=== PATIENT | female | born 1940 | race Caucasian/White ===

== ENCOUNTER 2017-10-25 09:14 | Inpatient (IN) | payer MEDICARE ==
[2017-10-25] MEDS: ONDANSETRON 4MG/2ML VIAL (J2405) IV ×2 (09:45→21:58)
[2017-10-25] MEDS: NS 500 ML IV (09:45)
[2017-10-25 10:10] LABS: BASO % 0.2 % (0.0-1.0); EOS % 0.4 % (0.0-3.0); HEMATOCRIT 30.3 % (36.0-47.0); HEMOGLOBIN 10.3 g/dl (12.0-16.0); IMMATURE GRANULOCYTE % 1.1 % (0-3.0); LYMPH # 0.6 10^3/uL (1.5-4.5); MEAN CORPUSCULAR HEMOGLOBIN 28.6 pg (27.0-33.0); MEAN CORPUSCULAR VOLUME 84.2 fl (80.0-96.0); MONO # 0.4 10^3/uL (0.0-0.8); MONO % 4.3 % (0.0-5.0); PLATELET COUNT, AUTOMATED 250 10^3/uL (150-450); RED CELL DISTRIBUTION WIDTH 14.2 % (11.5-14.5); WHITE BLOOD COUNT 9.1 10^3/uL (4.0-10.0)
[2017-10-25] MEDS: MORPHINE 2 MG/ML 1ML SYRINGE (J2270) IV ×2 (10:14→15:41)
[2017-10-25 10:26] LABS: INR 1.18; PROTHROMBIN TIME 15.2 SECONDS (12.4-14.5)
[2017-10-25 10:27] LABS: PARTIAL THROMBOPLASTIN TIME 33.8 SECONDS (26.8-37.9)
[2017-10-25 10:38] LABS: LACTIC ACID SEPSIS PROTOCOL 1.8 MMOL/L (0.4-2.0)
[2017-10-25 10:40] LABS: ALBUMIN 1.7 GM/DL (3.2-5.2); ALBUMIN/GLOBULIN RATIO 0.37 (1.00-1.93); ALKALINE PHOSPHATASE 115 U/L (45-117); ALT/SGPT 14 U/L (12-78); AMYLASE 36 U/L (25-115); ANION GAP 8 MEQ/L (8-16); AST/SGOT 13 U/L (7-37); BF MONONUCLEAR CELL % 13.4 % (0-0); BF POLYMORPHONUCLEAR CELL % 86.6 % (0-0); BILIRUBIN,DIRECT < 0.1 MG/DL (0.0-0.2); BILIRUBIN,TOTAL 0.3 MG/DL (0.2-1.0); BLOOD UREA NITROGEN 29 MG/DL (7-18); CALCIUM LEVEL 7.4 MG/DL (8.8-10.2); CARBON DIOXIDE LEVEL 31 MEQ/L (21-32); CHLORIDE LEVEL 85 MEQ/L (98-107); CK-MB VALUE MASS 2.3 NG/ML (<3.6); CPK CREATINE PHOSPHOKINASE 32 U/L (26-192); CREATININE FOR GFR 3.79 MG/DL (0.55-1.30); GLOMERULAR FILTRATION RATE 12.3 (>39); GLUCOSE, FASTING 240 MG/DL (70-100); LIPASE 311 U/L (73-393); MB/CK RELATIVE INDEX 7.18 (< OR =4); POTASSIUM SERUM 2.4 MEQ/L (3.5-5.1); RBC BODY FLUID < 2 10^3/uL (<2); SODIUM LEVEL 124 MEQ/L (136-145); TOTAL PROTEIN 6.3 GM/DL (6.4-8.2); TROPONIN I < 0.02 NG/ML (< 0.10); WBC BODY FLUID 884 /uL (0-10)
[2017-10-25 10:42] LABS: APPEARANCE, BODY FLUID HAZY (CLEAR); BF DIFF IF INDICATED? YES (NO); PERITONEAL FL COLOR COLORLESS (COLORLESS); SOURCE, BODY FLUID PERITONEAL
[2017-10-25 11:19] LABS: MAGNESIUM LEVEL 1.4 MG/DL (1.8-2.4)
[2017-10-25] MEDS ORDERED: MEROPENEM INJ 1 GM in APPROPRIATE DILUENT 1 EA IV (11:30)
[2017-10-25] MEDS: POTASSIUM CHLORIDE 10 MEQ SR TABLET PO (11:31)
[2017-10-25 13:22] LABS: CC BF DIFF EXAM UNSPUN
[2017-10-25] MEDS: KCL 10MEQ/100ML SWI (KRUN) 10 MEQ in APPROPRIATE DILUENT 1 EA IV ×4 (15:00→16:30)
[2017-10-25] MEDS: GENTAMICIN SULF INJ 80MG/2ML VIAL (J1580) IP (15:02)
[2017-10-25] MEDS: VANCOMYCIN 1000 MG/20 ML VIAL (J3370) IP (15:03)
[2017-10-25] MEDS: MAG SULF 1GM/100ML (MAG RUN) 1 GM in APPROPRIATE DILUENT 1 EA IV (15:03)
[2017-10-25] MEDS ORDERED: GLUCAGON FOR INJ 1 MG VIAL (J1610) SC (16:45)
[2017-10-25] MEDS ORDERED: GLUCOSE 4 GM CHEW TABLET PO (16:45)
[2017-10-25] MEDS ORDERED: DEXTROSE 50% 50 ML SYRINGE IV (16:45)
[2017-10-25] MEDS: HumaLOG INSULIN (NovoLOG) PER UNIT SC ×2 (17:30→21:00)
[2017-10-25 17:33] LABS: BEDSIDE GLUCOSE 242 MG/DL (83-110)
[2017-10-25] MEDS: (RENVELA) SEVELAMER **CARBONate** 800 MG TAB PO (17:44)
[2017-10-25 20:30] LABS: POTASSIUM SERUM 3.4 MEQ/L (3.5-5.1)
[2017-10-25 21:22] LABS: BEDSIDE GLUCOSE 150 MG/DL (83-110)
[2017-10-25] MEDS: CARVedilol 3.125 MG TAB PO (21:58)
[2017-10-25] MEDS: oxyCODONE 5MG TAB PO (21:59)
[2017-10-26 06:29] LABS: HEMATOCRIT 28.2 % (36.0-47.0); HEMOGLOBIN 9.4 g/dl (12.0-16.0); MEAN CORPUSCULAR HEMOGLOBIN 28.3 pg (27.0-33.0); MEAN CORPUSCULAR HGB CONC 33.3 g/dl (32.0-36.5); MEAN CORPUSCULAR VOLUME 84.9 fl (80.0-96.0); PLATELET COUNT, AUTOMATED 203 10^3/uL (150-450); RED BLOOD COUNT 3.32 10^6/uL (4.00-5.40); RED CELL DISTRIBUTION WIDTH 14.1 % (11.5-14.5); WHITE BLOOD COUNT 7.6 10^3/uL (4.0-10.0)
[2017-10-26] MEDS: oxyCODONE 5MG TAB PO ×2 (06:41→17:45)
[2017-10-26 06:51] LABS: ALBUMIN 1.4 GM/DL (3.2-5.2); ALBUMIN/GLOBULIN RATIO 0.34 (1.00-1.93); ALKALINE PHOSPHATASE 107 U/L (45-117); ALT/SGPT 12 U/L (12-78); ANION GAP 8 MEQ/L (8-16); AST/SGOT 9 U/L (7-37); BILIRUBIN,TOTAL 0.3 MG/DL (0.2-1.0); BLOOD UREA NITROGEN 27 MG/DL (7-18); CALCIUM LEVEL 7.1 MG/DL (8.8-10.2); CARBON DIOXIDE LEVEL 30 MEQ/L (21-32); CHLORIDE LEVEL 89 MEQ/L (98-107); GLOMERULAR FILTRATION RATE 13.1 (>39); GLUCOSE, FASTING 170 MG/DL (70-100); MAGNESIUM LEVEL 1.5 MG/DL (1.8-2.4); POTASSIUM SERUM 3.2 MEQ/L (3.5-5.1); SODIUM LEVEL 127 MEQ/L (136-145); TOTAL PROTEIN 5.5 GM/DL (6.4-8.2)
[2017-10-26] MEDS: HumaLOG INSULIN (NovoLOG) PER UNIT SC ×4 (07:49→21:00)
[2017-10-26] MEDS: POTASSIUM CHLORIDE 10 MEQ SR TABLET PO (08:01)
[2017-10-26] MEDS: MAG SULF 1GM/100ML (MAG RUN) 1 GM in APPROPRIATE DILUENT 1 EA IV ×2 (08:01→10:07)
[2017-10-26] MEDS: (RENVELA) SEVELAMER **CARBONate** 800 MG TAB PO ×2 (08:02→17:34)
[2017-10-26] MEDS: CARVedilol 3.125 MG TAB PO ×2 (08:02→21:45)
[2017-10-26] MEDS: FERROUS SULFATE 325MG TAB PO (08:02)
[2017-10-26] MEDS: ASPIRIN 325 MG TAB PO (08:02)
[2017-10-26] MEDS: CALCITRIOL 0.25 MCG CAP (S0169) PO (08:02)
[2017-10-26] MEDS: BACITRACIN OINT 30GM TOP (09:00)
[2017-10-26] MEDS: aMILoride 5 MG TAB PO (10:10)
[2017-10-26 11:38] LABS: BF MONONUCLEAR CELL % 10.4 % (0-0); BF POLYMORPHONUCLEAR CELL % 89.6 % (0-0); PERITONEAL FL COLOR COLORLESS (COLORLESS); RBC BODY FLUID < 2 10^3/uL (<2); SOURCE, BODY FLUID PERITONEAL; WBC BODY FLUID 879 /uL (0-10)
[2017-10-26 11:39] LABS: APPEARANCE, BODY FLUID HAZY (CLEAR); BF DIFF IF INDICATED? YES (NO)
[2017-10-26 11:56] LABS: BEDSIDE GLUCOSE 229 MG/DL (83-110)
[2017-10-26] MEDS: ONDANSETRON 4MG/2ML VIAL (J2405) IV (15:24)
[2017-10-26] MEDS: TORSEMIDE 20 MG TAB PO (16:09)
[2017-10-26] MEDS: POTASSIUM CHLORIDE 10% LIQ 20 MEQ/15 ML UDC PO (16:09)
[2017-10-26 16:33] LABS: BEDSIDE GLUCOSE 200 MG/DL (83-110)
[2017-10-26 20:40] LABS: ANION GAP 6 MEQ/L (8-16); BLOOD UREA NITROGEN 27 MG/DL (7-18); CARBON DIOXIDE LEVEL 33 MEQ/L (21-32); CHLORIDE LEVEL 89 MEQ/L (98-107); CREATININE FOR GFR 3.39 MG/DL (0.55-1.30); GLUCOSE, FASTING 214 MG/DL (70-100); SODIUM LEVEL 128 MEQ/L (136-145)
[2017-10-26 21:01] LABS: BEDSIDE GLUCOSE 216 MG/DL (83-110)
[2017-10-26] MEDS: GENTAMICIN SULF INJ 80MG/2ML VIAL (J1580) IP (22:05)
[2017-10-27] MEDS: CALCIUM CARBONATE 500 MG CHEW U/D PO (00:12)
[2017-10-27] MEDS: ONDANSETRON 4MG/2ML VIAL (J2405) IV ×2 (05:16→15:49)
[2017-10-27 05:23] LABS: HEMATOCRIT 30.3 % (36.0-47.0); HEMOGLOBIN 9.9 g/dl (12.0-16.0); MEAN CORPUSCULAR HEMOGLOBIN 28.3 pg (27.0-33.0); MEAN CORPUSCULAR HGB CONC 32.7 g/dl (32.0-36.5); MEAN CORPUSCULAR VOLUME 86.6 fl (80.0-96.0); PLATELET COUNT, AUTOMATED 237 10^3/uL (150-450); RED CELL DISTRIBUTION WIDTH 14.3 % (11.5-14.5); WHITE BLOOD COUNT 5.8 10^3/uL (4.0-10.0)
[2017-10-27 05:52] LABS: ALBUMIN 1.5 GM/DL (3.2-5.2); ALBUMIN/GLOBULIN RATIO 0.37 (1.00-1.93); ALKALINE PHOSPHATASE 110 U/L (45-117); ALT/SGPT 10 U/L (12-78); ANION GAP 8 MEQ/L (8-16); AST/SGOT 9 U/L (7-37); BILIRUBIN,TOTAL 0.2 MG/DL (0.2-1.0); BLOOD UREA NITROGEN 30 MG/DL (7-18); CALCIUM LEVEL 7.7 MG/DL (8.8-10.2); CARBON DIOXIDE LEVEL 32 MEQ/L (21-32); CHLORIDE LEVEL 89 MEQ/L (98-107); CREATININE FOR GFR 3.59 MG/DL (0.55-1.30); GLOMERULAR FILTRATION RATE 13.1 (>39); GLUCOSE, FASTING 162 MG/DL (70-100); MAGNESIUM LEVEL 1.8 MG/DL (1.8-2.4); POTASSIUM SERUM 3.5 MEQ/L (3.5-5.1); SODIUM LEVEL 129 MEQ/L (136-145); TOTAL PROTEIN 5.6 GM/DL (6.4-8.2)
[2017-10-27 06:51] LABS: RBC BODY FLUID < 2 10^3/uL (<2); SOURCE, BODY FLUID PERITONEAL DIALYSATE; WBC BODY FLUID 873 /uL (0-10)
[2017-10-27 06:52] LABS: APPEARANCE, BODY FLUID HAZY (CLEAR); PERITONEAL DIALYSATE FL COLOR COLORLESS (COLORLESS)
[2017-10-27 06:53] LABS: BF DIFF IF INDICATED? YES (NO)
[2017-10-27] MEDS: (RENVELA) SEVELAMER **CARBONate** 800 MG TAB PO ×4 (08:00→17:09)
[2017-10-27] MEDS: ASPIRIN 325 MG TAB PO (08:16)
[2017-10-27] MEDS: CARVedilol 3.125 MG TAB PO ×2 (08:17→21:16)
[2017-10-27] MEDS: aMILoride 5 MG TAB PO (08:17)
[2017-10-27] MEDS: POTASSIUM CHLORIDE 10 MEQ SR TABLET PO (08:17)
[2017-10-27] MEDS: CALCITRIOL 0.25 MCG CAP (S0169) PO (08:17)
[2017-10-27] MEDS: HumaLOG INSULIN (NovoLOG) PER UNIT SC ×4 (08:18→21:00)
[2017-10-27] MEDS: TORSEMIDE 20 MG TAB PO ×2 (08:18→17:03)
[2017-10-27] MEDS: FERROUS SULFATE 325MG TAB PO (08:18)
[2017-10-27] MEDS: oxyCODONE 5MG TAB PO ×2 (08:19→15:50)
[2017-10-27] MEDS: BACITRACIN OINT 30GM TOP (08:21)
[2017-10-27 11:18] LABS: GENTAMICIN LEVEL RANDOM 2.6 MCG/ML; VANCOMYCIN RANDOM 15.2 UG/ML
[2017-10-27 12:22] LABS: BEDSIDE GLUCOSE 195 MG/DL (83-110)
[2017-10-27] MEDS: CEFEPIME HCL 2 GM in D5W MINI-BAG PLUS 50 ML IV (13:13)
[2017-10-27] MEDS: FLUCONAZOLE 100 MG TAB PO (13:13)
[2017-10-27] MEDS: HEPARIN SOD (PORCINE) 5000 UNITS/ML VIAL PD (14:41)
[2017-10-27 17:12] LABS: BEDSIDE GLUCOSE 198 MG/DL (83-110)
[2017-10-27] MEDS: PROMETHAZINE INJ 25 MG/ML VIAL (J2550) IV (18:17)
[2017-10-27 20:56] LABS: BEDSIDE GLUCOSE 219 MG/DL (83-110)
[2017-10-27] MEDS: GENTAMICIN SULF INJ 80MG/2ML VIAL (J1580) IP (22:12)
[2017-10-28 05:37] LABS: HEMOGLOBIN 10.1 g/dl (12.0-16.0); MEAN CORPUSCULAR HEMOGLOBIN 28.3 pg (27.0-33.0); MEAN CORPUSCULAR HGB CONC 32.6 g/dl (32.0-36.5); MEAN CORPUSCULAR VOLUME 86.8 fl (80.0-96.0); PLATELET COUNT, AUTOMATED 257 10^3/uL (150-450); RED BLOOD COUNT 3.57 10^6/uL (4.00-5.40); RED CELL DISTRIBUTION WIDTH 14.1 % (11.5-14.5); WHITE BLOOD COUNT 6.1 10^3/uL (4.0-10.0)
[2017-10-28 06:14] LABS: ALBUMIN 1.5 GM/DL (3.2-5.2); ALBUMIN/GLOBULIN RATIO 0.37 (1.00-1.93); ALKALINE PHOSPHATASE 103 U/L (45-117); ALT/SGPT 11 U/L (12-78); ANION GAP 9 MEQ/L (8-16); AST/SGOT 9 U/L (7-37); BILIRUBIN,TOTAL 0.3 MG/DL (0.2-1.0); BLOOD UREA NITROGEN 33 MG/DL (7-18); CALCIUM LEVEL 7.8 MG/DL (8.8-10.2); CARBON DIOXIDE LEVEL 30 MEQ/L (21-32); CHLORIDE LEVEL 90 MEQ/L (98-107); GLOMERULAR FILTRATION RATE 12.7 (>39); GLUCOSE, FASTING 154 MG/DL (70-100); MAGNESIUM LEVEL 1.8 MG/DL (1.8-2.4); POTASSIUM SERUM 3.5 MEQ/L (3.5-5.1); SODIUM LEVEL 129 MEQ/L (136-145); TOTAL PROTEIN 5.6 GM/DL (6.4-8.2)
[2017-10-28 07:47] LABS: RBC BODY FLUID < 2 10^3/uL (<2); SOURCE, BODY FLUID PERITONEAL DIALYSATE; WBC BODY FLUID 546 /uL (0-10)
[2017-10-28 07:48] LABS: APPEARANCE, BODY FLUID CLEAR (CLEAR); BF DIFF IF INDICATED? YES (NO); PERITONEAL DIALYSATE FL COLOR COLORLESS (COLORLESS)
[2017-10-28] MEDS: (RENVELA) SEVELAMER **CARBONate** 800 MG TAB PO ×2 (08:00→18:00)
[2017-10-28] MEDS: POTASSIUM CHLORIDE 10 MEQ SR TABLET PO (09:00)
[2017-10-28] MEDS: CALCITRIOL 0.25 MCG CAP (S0169) PO (09:05)
[2017-10-28] MEDS: HumaLOG INSULIN (NovoLOG) PER UNIT SC ×4 (09:05→21:00)
[2017-10-28] MEDS: FERROUS SULFATE 325MG TAB PO (09:06)
[2017-10-28] MEDS: ASPIRIN 325 MG TAB PO (09:07)
[2017-10-28] MEDS: TORSEMIDE 20 MG TAB PO ×2 (09:07→18:05)
[2017-10-28] MEDS: FLUCONAZOLE 100 MG TAB PO (09:08)
[2017-10-28] MEDS: CARVedilol 3.125 MG TAB PO ×2 (09:08→20:41)
[2017-10-28] MEDS: BACITRACIN OINT 30GM TOP (09:10)
[2017-10-28] MEDS: aMILoride 5 MG TAB PO (09:10)
[2017-10-28 09:40] LABS: VANCOMYCIN RANDOM 12.5 UG/ML
[2017-10-28 12:18] LABS: BEDSIDE GLUCOSE 160 MG/DL (83-110)
[2017-10-28] MEDS: VANCOMYCIN 1000 MG/20 ML VIAL (J3370) IP (14:25)
[2017-10-28 17:24] LABS: BEDSIDE GLUCOSE 171 MG/DL (83-110)
[2017-10-28 21:25] LABS: BEDSIDE GLUCOSE 94 MG/DL (83-110)
[2017-10-29 07:13] LABS: BF MONONUCLEAR CELL % 20.2 % (0-0); BF POLYMORPHONUCLEAR CELL % 79.8 % (0-0); RBC BODY FLUID < 2 10^3/uL (<2); WBC BODY FLUID 376 /uL (0-10)
[2017-10-29 07:14] LABS: APPEARANCE, BODY FLUID HAZY (CLEAR); BF DIFF IF INDICATED? YES (NO); PERITONEAL DIALYSATE FL COLOR COLORLESS (COLORLESS); SOURCE, BODY FLUID PERITONEAL DIALYSATE
[2017-10-29 07:28] LABS: HEMATOCRIT 31.9 % (36.0-47.0); HEMOGLOBIN 10.3 g/dl (12.0-16.0); MEAN CORPUSCULAR HGB CONC 32.3 g/dl (32.0-36.5); MEAN CORPUSCULAR VOLUME 86.7 fl (80.0-96.0); PLATELET COUNT, AUTOMATED 240 10^3/uL (150-450); RED BLOOD COUNT 3.68 10^6/uL (4.00-5.40); RED CELL DISTRIBUTION WIDTH 14.5 % (11.5-14.5); WHITE BLOOD COUNT 5.9 10^3/uL (4.0-10.0)
[2017-10-29 07:37] LABS: ALBUMIN 1.4 GM/DL (3.2-5.2); ALBUMIN/GLOBULIN RATIO 0.34 (1.00-1.93); ALKALINE PHOSPHATASE 105 U/L (45-117); ALT/SGPT 10 U/L (12-78); ANION GAP 7 MEQ/L (8-16); AST/SGOT 11 U/L (7-37); BILIRUBIN,TOTAL 0.2 MG/DL (0.2-1.0); BLOOD UREA NITROGEN 34 MG/DL (7-18); CALCIUM LEVEL 7.8 MG/DL (8.8-10.2); CARBON DIOXIDE LEVEL 30 MEQ/L (21-32); CHLORIDE LEVEL 92 MEQ/L (98-107); CREATININE FOR GFR 3.36 MG/DL (0.55-1.30); GLOMERULAR FILTRATION RATE 14.2 (>39); GLUCOSE, FASTING 195 MG/DL (70-100); MAGNESIUM LEVEL 1.5 MG/DL (1.8-2.4); POTASSIUM SERUM 3.4 MEQ/L (3.5-5.1); SODIUM LEVEL 129 MEQ/L (136-145); TOTAL PROTEIN 5.5 GM/DL (6.4-8.2)
[2017-10-29] MEDS: aMILoride 5 MG TAB PO (08:26)
[2017-10-29] MEDS: HumaLOG INSULIN (NovoLOG) PER UNIT SC ×4 (08:27→22:21)
[2017-10-29] MEDS: MAG SULF 1GM/100ML (MAG RUN) 1 GM in APPROPRIATE DILUENT 1 EA IV (08:27)
[2017-10-29] MEDS: (RENVELA) SEVELAMER **CARBONate** 800 MG TAB PO ×2 (08:28→17:48)
[2017-10-29] MEDS: FERROUS SULFATE 325MG TAB PO (08:28)
[2017-10-29] MEDS: ASPIRIN 325 MG TAB PO (08:28)
[2017-10-29] MEDS: CALCITRIOL 0.25 MCG CAP (S0169) PO (08:28)
[2017-10-29] MEDS: TORSEMIDE 20 MG TAB PO ×2 (08:28→17:47)
[2017-10-29] MEDS: FLUCONAZOLE 100 MG TAB PO (08:28)
[2017-10-29] MEDS: POTASSIUM CHLORIDE 10 MEQ SR TABLET PO ×2 (08:28→12:21)
[2017-10-29] MEDS: BACITRACIN OINT 30GM TOP (08:29)
[2017-10-29] MEDS: CARVedilol 3.125 MG TAB PO ×2 (08:29→22:21)
[2017-10-29] MEDS: CEFEPIME HCL 2 GM in D5W MINI-BAG PLUS 50 ML IV (12:21)
[2017-10-29] MEDS: DARBEPOETIN 100 MCG/0.5 ML *NON-DIALYSIS* SYRINGE (J0881) SC (12:21)
[2017-10-29 12:49] LABS: BEDSIDE GLUCOSE 225 MG/DL (83-110)
[2017-10-29 18:07] LABS: BEDSIDE GLUCOSE 178 MG/DL (83-110)
[2017-10-29] MEDS: CALCIUM CARBONATE 500 MG CHEW U/D PO (22:20)
[2017-10-29] MEDS: ONDANSETRON 4MG/2ML VIAL (J2405) IV (22:48)
[2017-10-30 05:57] LABS: HEMATOCRIT 30.2 % (36.0-47.0); HEMOGLOBIN 9.8 g/dl (12.0-16.0); MEAN CORPUSCULAR HEMOGLOBIN 28.2 pg (27.0-33.0); MEAN CORPUSCULAR HGB CONC 32.5 g/dl (32.0-36.5); MEAN CORPUSCULAR VOLUME 86.8 fl (80.0-96.0); PLATELET COUNT, AUTOMATED 236 10^3/uL (150-450); RED BLOOD COUNT 3.48 10^6/uL (4.00-5.40); RED CELL DISTRIBUTION WIDTH 14.5 % (11.5-14.5); WHITE BLOOD COUNT 7.3 10^3/uL (4.0-10.0)
[2017-10-30 06:25] LABS: ALBUMIN 1.4 GM/DL (3.2-5.2); ALBUMIN/GLOBULIN RATIO 0.37 (1.00-1.93); ALKALINE PHOSPHATASE 103 U/L (45-117); ALT/SGPT 11 U/L (12-78); ANION GAP 7 MEQ/L (8-16); AST/SGOT 11 U/L (7-37); BILIRUBIN,TOTAL 0.2 MG/DL (0.2-1.0); BLOOD UREA NITROGEN 32 MG/DL (7-18); CALCIUM LEVEL 7.8 MG/DL (8.8-10.2); CARBON DIOXIDE LEVEL 30 MEQ/L (21-32); CHLORIDE LEVEL 95 MEQ/L (98-107); CREATININE FOR GFR 3.33 MG/DL (0.55-1.30); GLOMERULAR FILTRATION RATE 14.3 (>39); GLUCOSE, FASTING 147 MG/DL (70-100); MAGNESIUM LEVEL 1.7 MG/DL (1.8-2.4); POTASSIUM SERUM 3.6 MEQ/L (3.5-5.1); SODIUM LEVEL 132 MEQ/L (136-145); TOTAL PROTEIN 5.2 GM/DL (6.4-8.2)
[2017-10-30 08:10] LABS: BF MONONUCLEAR CELL % 17.6 % (0-0); BF POLYMORPHONUCLEAR CELL % 82.4 % (0-0); RBC BODY FLUID < 2 10^3/uL (<2); WBC BODY FLUID 268 /uL (0-10)
[2017-10-30 08:11] LABS: APPEARANCE, BODY FLUID CLEAR (CLEAR); BF DIFF IF INDICATED? YES (NO); PERITONEAL DIALYSATE FL COLOR COLORLESS (COLORLESS); SOURCE, BODY FLUID PERITONEAL DIALYSATE
[2017-10-30] MEDS: CARVedilol 3.125 MG TAB PO (08:28)
[2017-10-30] MEDS: (RENVELA) SEVELAMER **CARBONate** 800 MG TAB PO (08:28)
[2017-10-30] MEDS: TORSEMIDE 20 MG TAB PO (08:29)
[2017-10-30] MEDS: FERROUS SULFATE 325MG TAB PO (08:29)
[2017-10-30] MEDS: ASPIRIN 325 MG TAB PO (08:29)
[2017-10-30] MEDS: CALCITRIOL 0.25 MCG CAP (S0169) PO (08:29)
[2017-10-30] MEDS: aMILoride 5 MG TAB PO (08:29)
[2017-10-30] MEDS: POTASSIUM CHLORIDE 10 MEQ SR TABLET PO (08:29)
[2017-10-30] MEDS: BACITRACIN OINT 30GM TOP (08:30)
[2017-10-30] MEDS: HumaLOG INSULIN (NovoLOG) PER UNIT SC ×2 (08:30→11:50)
[2017-10-30 08:39] LABS: VANCOMYCIN RANDOM 16.8 UG/ML
[2017-10-30 21:06] LABS: BEDSIDE GLUCOSE 203 MG/DL (83-110)
[2017-10-30 21:06] LABS: BEDSIDE GLUCOSE 170 MG/DL (83-110)
== END 2017-10-30 14:05 | disposition home or self-care (01) | DRG 919 ==
LOC: M ED 09:14 → M ED INP 12:43 → M MSPAV 16:55
DX: T85.71XA Infection and inflammatory reaction due to peritoneal dialysis catheter, initial encounter (principal); K65.2 Spontaneous bacterial peritonitis; N18.6 End stage renal disease; E87.1 Hypo-osmolality and hyponatremia; R78.81 Bacteremia; E46 Unspecified protein-calorie malnutrition; I12.0 Hypertensive chronic kidney disease with stage 5 chronic kidney disease or end stage renal disease; E83.42 Hypomagnesemia; E11.9 Type 2 diabetes mellitus without complications; B95.4 Other streptococcus as the cause of diseases classified elsewhere; D63.1 Anemia in chronic kidney disease; E87.6 Hypokalemia; Z79.84 Long term (current) use of oral hypoglycemic drugs; Z79.899 Other long term (current) drug therapy; Z88.1 Allergy status to other antibiotic agents; Z88.8 Allergy status to other drugs, medicaments and biological substances; Z88.6 Allergy status to analgesic agent; Z99.2 Dependence on renal dialysis; Z95.828 Presence of other vascular implants and grafts; B95.8 Unspecified staphylococcus as the cause of diseases classified elsewhere; Y82.9 Unspecified medical devices associated with adverse incidents

== ENCOUNTER 2017-11-27 08:49 | Inpatient (IN) | payer MEDICARE ==
[2017-11-27 10:49] LABS: BASO % 0.2 % (0.0-1.0); EOS # 0.1 10^3/uL (0.0-0.50); EOS % 0.6 % (0.0-3.0); HEMATOCRIT 31.2 % (36.0-47.0); HEMOGLOBIN 10.3 g/dl (12.0-15.5); IMMATURE GRANULOCYTE % 0.7 % (0-3.0); LYMPH # 0.7 10^3/uL (1.5-4.5); LYMPH % 8.7 % (24.0-44.0); MEAN CORPUSCULAR HEMOGLOBIN 28.3 pg (27.0-33.0); MEAN CORPUSCULAR VOLUME 85.7 fl (80.0-96.0); MONO # 0.5 10^3/uL (0.0-0.8); MONO % 5.6 % (0.0-5.0); NEUTROPHILS % 84.2 % (36.0-66.0); PLATELET COUNT, AUTOMATED 138 10^3/uL (150-450); RED BLOOD COUNT 3.64 10^6/uL (4.00-5.40); RED CELL DISTRIBUTION WIDTH 17.5 % (11.5-14.5); WHITE BLOOD COUNT 8.4 10^3/uL (4.0-10.0)
[2017-11-27 11:34] LABS: ALBUMIN 1.6 GM/DL (3.2-5.2); ALBUMIN/GLOBULIN RATIO 0.42 (1.00-1.93); ALKALINE PHOSPHATASE 133 U/L (45-117); ALT/SGPT 17 U/L (12-78); ANION GAP 11 MEQ/L (8-16); AST/SGOT 16 U/L (7-37); BILIRUBIN,DIRECT < 0.1 MG/DL (0.0-0.2); BILIRUBIN,TOTAL 0.3 MG/DL (0.2-1.0); BLOOD UREA NITROGEN 28 MG/DL (7-18); CALCIUM LEVEL 7.3 MG/DL (8.8-10.2); CARBON DIOXIDE LEVEL 29 MEQ/L (21-32); CHLORIDE LEVEL 91 MEQ/L (98-107); CREATININE FOR GFR 5.03 MG/DL (0.55-1.30); GLOMERULAR FILTRATION RATE 8.9 (>39); GLUCOSE, FASTING 310 MG/DL (70-100); LIPASE 1602 U/L (73-393); POTASSIUM SERUM 2.9 MEQ/L (3.5-5.1); SODIUM LEVEL 131 MEQ/L (136-145); TOTAL PROTEIN 5.4 GM/DL (6.4-8.2)
[2017-11-27 13:10] LABS: RBC BODY FLUID < 2 10^3/uL (<2); WBC BODY FLUID 23 /uL (0-10)
[2017-11-27 13:11] LABS: APPEARANCE, BODY FLUID CLEAR (CLEAR); PERITONEAL DIALYSATE FL COLOR COLORLESS (COLORLESS); SOURCE, BODY FLUID PERITONEAL DIALYSATE
[2017-11-27] MEDS ORDERED: NS 1,000 ML IV (14:45)
[2017-11-27] MEDS ORDERED: GLUCOSE 4 GM CHEW TABLET PO (14:45)
[2017-11-27] MEDS ORDERED: DEXTROSE 50% 50 ML SYRINGE IV (14:45)
[2017-11-27] MEDS ORDERED: GLUCAGON FOR INJ 1 MG VIAL (J1610) SC (14:45)
[2017-11-27 14:53] LABS: MAGNESIUM LEVEL 1.4 MG/DL (1.8-2.4)
[2017-11-27] MEDS ORDERED: POTASSIUM CHLORIDE INJ 20 MEQ in NS 1,000 ML IV (15:16)
[2017-11-27 16:35] LABS: BF DIFF IF INDICATED? YES (NO); BF MONONUCLEAR CELL % 65.2 % (0-0); BF POLYMORPHONUCLEAR CELL % 34.8 % (0-0)
[2017-11-27] MEDS: KCL 20MEQ in NS 1000ML 1,000 ML IV (16:41)
[2017-11-27 17:44] LABS: TYPE AND SCREEN 1
[2017-11-27] MEDS: HumaLOG INSULIN (NovoLOG) PER UNIT SC ×2 (18:00→23:37)
[2017-11-27] MEDS ORDERED: (RENVELA) SEVELAMER **CARBONate** 800 MG TAB PO (18:00)
[2017-11-27 20:19] LABS: BEDSIDE GLUCOSE 242 MG/DL (83-110)
[2017-11-27 20:19] LABS: ANION GAP 8 MEQ/L (8-16); BLOOD UREA NITROGEN 27 MG/DL (7-18); CALCIUM LEVEL 7.2 MG/DL (8.8-10.2); CARBON DIOXIDE LEVEL 31 MEQ/L (21-32); CHLORIDE LEVEL 94 MEQ/L (98-107); CREATININE FOR GFR 4.81 MG/DL (0.55-1.30); GLOMERULAR FILTRATION RATE 9.4 (>39); GLUCOSE, FASTING 176 MG/DL (70-100); POTASSIUM SERUM 2.6 MEQ/L (3.5-5.1); SODIUM LEVEL 133 MEQ/L (136-145)
[2017-11-27] MEDS ORDERED: MAG SULF 1GM/100ML (MAG RUN) 1 GM in APPROPRIATE DILUENT 1 EA IV (21:00)
[2017-11-27] MEDS: PANTOPRAZOLE 40MG INJ (PROTONIX) (C9113) IV (21:52)
[2017-11-27] MEDS: HEPARIN SOD (PORCINE) 5000 UNITS/ML VIAL SC ×2 (21:52→22:19)
[2017-11-27] MEDS: CARVedilol 3.125 MG TAB PO (21:56)
[2017-11-27] MEDS: POTASSIUM CHLORIDE 10 MEQ SR TABLET PO ×2 (21:56→21:57)
[2017-11-27] MEDS: SENOKOT S TAB PO (21:57)
[2017-11-27] MEDS: MAG SULF 1GM/100ML (MAG RUN) 1 GM in APPROPRIATE DILUENT 1 EA IV ×2 (21:57→22:33)
[2017-11-27] MEDS: MORPHINE 4 MG/ML 1ML VIAL/SYRINGE (J2270) IV (22:33)
[2017-11-27 23:42] LABS: BEDSIDE GLUCOSE 196 MG/DL (83-110)
[2017-11-28 02:27] LABS: HEMATOCRIT 26.8 % (36.0-47.0); HEMOGLOBIN 8.9 g/dl (12.0-15.5); MEAN CORPUSCULAR HEMOGLOBIN 28.5 pg (27.0-33.0); MEAN CORPUSCULAR HGB CONC 33.2 g/dl (32.0-36.5); MEAN CORPUSCULAR VOLUME 85.9 fl (80.0-96.0); PLATELET COUNT, AUTOMATED 130 10^3/uL (150-450); RED BLOOD COUNT 3.12 10^6/uL (4.00-5.40); RED CELL DISTRIBUTION WIDTH 17.6 % (11.5-14.5); WHITE BLOOD COUNT 6.3 10^3/uL (4.0-10.0)
[2017-11-28 02:46] LABS: ANION GAP 8 MEQ/L (8-16); BLOOD UREA NITROGEN 27 MG/DL (7-18); CALCIUM LEVEL 6.9 MG/DL (8.8-10.2); CARBON DIOXIDE LEVEL 31 MEQ/L (21-32); CHLORIDE LEVEL 97 MEQ/L (98-107); CREATININE FOR GFR 4.74 MG/DL (0.55-1.30); GLOMERULAR FILTRATION RATE 9.5 (>39); GLUCOSE, FASTING 106 MG/DL (70-100); MAGNESIUM LEVEL 1.9 MG/DL (1.8-2.4); SODIUM LEVEL 136 MEQ/L (136-145)
[2017-11-28 02:47] LABS: ALBUMIN 1.5 GM/DL (3.2-5.2); ALKALINE PHOSPHATASE 107 U/L (45-117); ALT/SGPT 13 U/L (12-78); ANION GAP 9 MEQ/L (8-16); AST/SGOT 11 U/L (7-37); BILIRUBIN,TOTAL 0.2 MG/DL (0.2-1.0); BLOOD UREA NITROGEN 27 MG/DL (7-18); CALCIUM LEVEL 6.9 MG/DL (8.8-10.2); CARBON DIOXIDE LEVEL 30 MEQ/L (21-32); CHLORIDE LEVEL 97 MEQ/L (98-107); CREATININE FOR GFR 4.69 MG/DL (0.55-1.30); GLOMERULAR FILTRATION RATE 9.6 (>39); GLUCOSE, FASTING 105 MG/DL (70-100); LIPASE 946 U/L (73-393); SODIUM LEVEL 136 MEQ/L (136-145); TOTAL PROTEIN 4.5 GM/DL (6.4-8.2); TRIGLYCERIDES LEVEL 112 MG/DL (<150)
[2017-11-28] MEDS: POTASSIUM CHLORIDE 10 MEQ SR TABLET PO ×4 (03:11→20:43)
[2017-11-28] MEDS: MORPHINE 4 MG/ML 1ML VIAL/SYRINGE (J2270) IV (05:28)
[2017-11-28] MEDS: HumaLOG INSULIN (NovoLOG) PER UNIT SC ×4 (05:57→21:00)
[2017-11-28 06:02] LABS: BEDSIDE GLUCOSE 140 MG/DL (83-110)
[2017-11-28 08:21] LABS: LIPASE 918 U/L (73-393)
[2017-11-28 08:21] LABS: MAGNESIUM LEVEL 1.8 MG/DL (1.8-2.4)
[2017-11-28 08:24] LABS: ANION GAP 8 MEQ/L (8-16); BLOOD UREA NITROGEN 25 MG/DL (7-18); CALCIUM LEVEL 6.9 MG/DL (8.8-10.2); CARBON DIOXIDE LEVEL 30 MEQ/L (21-32); CHLORIDE LEVEL 99 MEQ/L (98-107); CREATININE FOR GFR 4.42 MG/DL (0.55-1.30); GLOMERULAR FILTRATION RATE 10.3 (>39); GLUCOSE, FASTING 118 MG/DL (70-100); POTASSIUM SERUM 3.3 MEQ/L (3.5-5.1); SODIUM LEVEL 137 MEQ/L (136-145)
[2017-11-28 08:29] LABS: HEMATOCRIT 28.1 % (36.0-47.0); HEMOGLOBIN 9.2 g/dl (12.0-15.5); MEAN CORPUSCULAR HEMOGLOBIN 28.4 pg (27.0-33.0); MEAN CORPUSCULAR HGB CONC 32.7 g/dl (32.0-36.5); MEAN CORPUSCULAR VOLUME 86.7 fl (80.0-96.0); PLATELET COUNT, AUTOMATED 136 10^3/uL (150-450); RED BLOOD COUNT 3.24 10^6/uL (4.00-5.40); RED CELL DISTRIBUTION WIDTH 17.7 % (11.5-14.5); WHITE BLOOD COUNT 6.2 10^3/uL (4.0-10.0)
[2017-11-28] MEDS: KCL 20MEQ in NS 1000ML 1,000 ML IV (08:50)
[2017-11-28] MEDS: SENOKOT S TAB PO ×2 (08:50→20:43)
[2017-11-28] MEDS: ASPIRIN 325 MG TAB PO (08:50)
[2017-11-28] MEDS: FERROUS SULFATE 325MG TAB PO (08:51)
[2017-11-28] MEDS: CARVedilol 3.125 MG TAB PO ×2 (08:51→20:43)
[2017-11-28] MEDS: CALCITRIOL 0.25 MCG CAP (S0169) PO (08:51)
[2017-11-28] MEDS: HEPARIN SOD (PORCINE) 5000 UNITS/ML VIAL SC ×2 (09:00→20:44)
[2017-11-28] MEDS ORDERED: SLF 3 ML SYR IV (11:30)
[2017-11-28 12:23] LABS: BEDSIDE GLUCOSE 131 MG/DL (83-110)
[2017-11-28] MEDS: SLF 3 ML SYR IV ×2 (14:00→22:00)
[2017-11-28 17:22] LABS: BEDSIDE GLUCOSE 107 MG/DL (83-110)
[2017-11-28] MEDS: PANTOPRAZOLE 40MG INJ (PROTONIX) (C9113) IV (20:42)
[2017-11-28] MEDS ORDERED: GLUCAGON FOR INJ 1 MG VIAL (J1610) SC (23:15)
[2017-11-28] MEDS ORDERED: DEXTROSE 50% 50 ML SYRINGE IV (23:15)
[2017-11-28] MEDS ORDERED: GLUCOSE 4 GM CHEW TABLET PO (23:15)
[2017-11-28 23:40] LABS: BEDSIDE GLUCOSE 158 MG/DL (83-110)
[2017-11-29] MEDS: SLF 3 ML SYR IV ×3 (06:54→21:45)
[2017-11-29 07:36] LABS: HEMATOCRIT 32.3 % (36.0-47.0); HEMOGLOBIN 10.4 g/dl (12.0-15.5); MEAN CORPUSCULAR HGB CONC 32.2 g/dl (32.0-36.5); MEAN CORPUSCULAR VOLUME 86.8 fl (80.0-96.0); PLATELET COUNT, AUTOMATED 166 10^3/uL (150-450); RED BLOOD COUNT 3.72 10^6/uL (4.00-5.40); WHITE BLOOD COUNT 6.3 10^3/uL (4.0-10.0)
[2017-11-29 08:02] LABS: ALBUMIN 1.6 GM/DL (3.2-5.2); ALKALINE PHOSPHATASE 127 U/L (45-117); ALT/SGPT 14 U/L (12-78); ANION GAP 9 MEQ/L (8-16); AST/SGOT 17 U/L (7-37); BILIRUBIN,TOTAL 0.4 MG/DL (0.2-1.0); BLOOD UREA NITROGEN 23 MG/DL (7-18); CALCIUM LEVEL 7.5 MG/DL (8.8-10.2); CARBON DIOXIDE LEVEL 26 MEQ/L (21-32); CHLORIDE LEVEL 100 MEQ/L (98-107); CREATININE FOR GFR 4.17 MG/DL (0.55-1.30); GLUCOSE, FASTING 203 MG/DL (70-100); LIPASE 594 U/L (73-393); MAGNESIUM LEVEL 1.8 MG/DL (1.8-2.4); POTASSIUM SERUM 4.3 MEQ/L (3.5-5.1); SODIUM LEVEL 135 MEQ/L (136-145); TOTAL PROTEIN 5.6 GM/DL (6.4-8.2)
[2017-11-29] MEDS: CALCITRIOL 0.25 MCG CAP (S0169) PO (08:55)
[2017-11-29] MEDS: NYSTATIN 100,000 UNITS/GM TOPICAL PWD 15 GM TOP ×2 (08:55→21:47)
[2017-11-29] MEDS: FERROUS SULFATE 325MG TAB PO (08:56)
[2017-11-29] MEDS: ASPIRIN 325 MG TAB PO (08:56)
[2017-11-29] MEDS: CARVedilol 3.125 MG TAB PO ×2 (08:56→21:47)
[2017-11-29] MEDS: SENOKOT S TAB PO ×2 (08:56→21:47)
[2017-11-29] MEDS: POTASSIUM CHLORIDE 10 MEQ SR TABLET PO ×2 (08:57→21:47)
[2017-11-29] MEDS: HEPARIN SOD (PORCINE) 5000 UNITS/ML VIAL SC ×2 (08:57→21:45)
[2017-11-29] MEDS: HumaLOG INSULIN (NovoLOG) PER UNIT SC ×4 (08:58→21:38)
[2017-11-29 12:26] LABS: BEDSIDE GLUCOSE 309 MG/DL (83-110)
[2017-11-29] MEDS: ONDANSETRON 4MG/2ML VIAL (J2405) IV (15:10)
[2017-11-29 17:59] LABS: BEDSIDE GLUCOSE 106 MG/DL (83-110)
[2017-11-29 20:32] LABS: BEDSIDE GLUCOSE 98 MG/DL (83-110)
[2017-11-29] MEDS: PANTOPRAZOLE 40MG INJ (PROTONIX) (C9113) IV (21:47)
[2017-11-30] MEDS: HEPARIN SOD (PORCINE) 5000 UNITS/ML VIAL PD (05:49)
[2017-11-30] MEDS: SLF 3 ML SYR IV (05:49)
[2017-11-30 06:08] LABS: HEMATOCRIT 28.9 % (36.0-47.0); HEMOGLOBIN 9.3 g/dl (12.0-15.5); MEAN CORPUSCULAR HEMOGLOBIN 28.3 pg (27.0-33.0); MEAN CORPUSCULAR HGB CONC 32.2 g/dl (32.0-36.5); MEAN CORPUSCULAR VOLUME 87.8 fl (80.0-96.0); PLATELET COUNT, AUTOMATED 143 10^3/uL (150-450); RED BLOOD COUNT 3.29 10^6/uL (4.00-5.40); RED CELL DISTRIBUTION WIDTH 17.9 % (11.5-14.5); WHITE BLOOD COUNT 4.4 10^3/uL (4.0-10.0)
[2017-11-30 06:33] LABS: ALBUMIN 1.3 GM/DL (3.2-5.2); ALBUMIN/GLOBULIN RATIO 0.36 (1.00-1.93); ALKALINE PHOSPHATASE 116 U/L (45-117); ALT/SGPT 13 U/L (12-78); ANION GAP 7 MEQ/L (8-16); AST/SGOT 13 U/L (7-37); BILIRUBIN,TOTAL 0.3 MG/DL (0.2-1.0); BLOOD UREA NITROGEN 22 MG/DL (7-18); CALCIUM LEVEL 7.3 MG/DL (8.8-10.2); CARBON DIOXIDE LEVEL 28 MEQ/L (21-32); CHLORIDE LEVEL 101 MEQ/L (98-107); CREATININE FOR GFR 3.95 MG/DL (0.55-1.30); GLOMERULAR FILTRATION RATE 11.8 (>39); GLUCOSE, FASTING 155 MG/DL (70-100); LIPASE 438 U/L (73-393); MAGNESIUM LEVEL 1.5 MG/DL (1.8-2.4); POTASSIUM SERUM 4.2 MEQ/L (3.5-5.1); SODIUM LEVEL 136 MEQ/L (136-145); TOTAL PROTEIN 4.9 GM/DL (6.4-8.2)
[2017-11-30] MEDS: SENOKOT S TAB PO (08:03)
[2017-11-30] MEDS: VITAMIN D 50,000 UNITS CAPSULE (ERGOCALCIFEROL 1.25MG) PO (08:03)
[2017-11-30] MEDS: FERROUS SULFATE 325MG TAB PO (08:03)
[2017-11-30] MEDS: POTASSIUM CHLORIDE 10 MEQ SR TABLET PO (08:03)
[2017-11-30] MEDS: ASPIRIN 325 MG TAB PO (08:04)
[2017-11-30] MEDS: CALCITRIOL 0.25 MCG CAP (S0169) PO (08:04)
[2017-11-30] MEDS: HumaLOG INSULIN (NovoLOG) PER UNIT SC (08:05)
[2017-11-30] MEDS: CARVedilol 3.125 MG TAB PO (08:07)
[2017-11-30] MEDS: HEPARIN SOD (PORCINE) 5000 UNITS/ML VIAL SC (08:19)
[2017-11-30] MEDS: NYSTATIN 100,000 UNITS/GM TOPICAL PWD 15 GM TOP (08:20)
== END 2017-11-30 09:14 | disposition home or self-care (01) | DRG 438 ==
LOC: M MSPAV 11-29 00:45 → M ED 08:49 → M ED INP 14:31 → M PCU 19:08
DX: K85.90 Acute pancreatitis without necrosis or infection, unspecified (principal); N18.6 End stage renal disease; I12.0 Hypertensive chronic kidney disease with stage 5 chronic kidney disease or end stage renal disease; E66.9 Obesity, unspecified; E11.22 Type 2 diabetes mellitus with diabetic chronic kidney disease; E87.6 Hypokalemia; E55.9 Vitamin D deficiency, unspecified; Z99.2 Dependence on renal dialysis; Z79.82 Long term (current) use of aspirin; Z79.84 Long term (current) use of oral hypoglycemic drugs; Z79.899 Other long term (current) drug therapy; Z68.31 Body mass index [BMI] 31.0-31.9, adult; Z88.1 Allergy status to other antibiotic agents; Z88.8 Allergy status to other drugs, medicaments and biological substances

== ENCOUNTER 2018-01-31 07:50 | Emergency (ER) | payer MEDICARE | END 2018-01-31 08:42 | disposition home or self-care (01) | LOC: M ED 07:50 | DX: Z48.02 Encounter for removal of sutures (principal); I50.9 Heart failure, unspecified; I10 Essential (primary) hypertension; E11.9 Type 2 diabetes mellitus without complications; N17.9 Acute kidney failure, unspecified; Z87.442 Personal history of urinary calculi; Z79.82 Long term (current) use of aspirin; Z79.4 Long term (current) use of insulin; Z79.899 Other long term (current) drug therapy; Z88.6 Allergy status to analgesic agent; Z88.8 Allergy status to other drugs, medicaments and biological substances; Z91.89 Other specified personal risk factors, not elsewhere classified | CPT/HCPCS: 99282 ==

== ENCOUNTER → 2019-06-03 | Outpatient (REF) | payer MEDICARE ==
[~2019-06-03] MED LIST: AMIL25TA; AMIL5TAB4 PO; AMLO5TAB6 PO; ASPI-1 PO; CALC1CAP31 PO; CALC1TAB5 PO; CEFU500T2 PO; CORE3.12 PO; DEMA20TA6 PO; DRIS50003 PO; FERR1TAB8 PO; FERR324T2 PO; FLUC10TA PO; GLIP10TA PO; GLIP10TA18 PO; KLOR10TA76 PO; LANTINJ4 SC; LASIX PO; LECI1200 PO; LEG1TAB PO; LIQULIQ6 PO; MAGN400C2 PO; MIRC200I; MIRC200I SC; NEPH1TAB11 PO; PANT40TA3 PO; PATIENT COMMENT; POTA1TAB23; POTASSIUM PO; RED600TA PO; RENA1TAB3 PO; RENV2TAB PO; ROCA0.25 PO; TORS20TA2; TORS20TA2 PO; VITA1TAB23 PO; VITA50005
[2019-06-03 15:27] LABS: HEMOGLOBIN A1c 7.5 %
== END ==
LOC: M LAB REF 12:44
PROVIDERS: ATTEND Surgery
DX: T14.8XXA Other injury of unspecified body region, initial encounter (principal); E11.621 Type 2 diabetes mellitus with foot ulcer; L97.412 Non-pressure chronic ulcer of right heel and midfoot with fat layer exposed; L97.422 Non-pressure chronic ulcer of left heel and midfoot with fat layer exposed
CPT/HCPCS: 11042; 36415; 83036; G0463

== ENCOUNTER 2020-03-25 13:05 | Emergency (ER) | payer MEDICARE ==
[~2020-03-25] VITALS: Ht 162.6 cm; Wt 82.3 kg
[~2020-03-25 13:05] MED LIST changes: +AMLO1TAB24 PO; -AMLO5TAB6 PO; +ASCO250T20 PO; +PANT40TA29 PO; -PANT40TA3 PO; -VITA1TAB23 PO
--- NOTE | 2020-03-25 13:48 | REPVR ---
PROCEDURE INFORMATION: Exam: CT Head Without Contrast Exam date and time: 03/25/2020 1:26 PM Age: 79 years old Clinical indication: Injury or trauma; Fall; Initial encounter; Blunt trauma (contusions or hematomas); Additional info: Fall injury; Head injury on blood thinners TECHNIQUE: Imaging protocol: Computed tomography of the head without contrast. Radiation optimization: All CT scans at this facility use at least one of these dose optimization techniques: automated exposure control; mA and/or kV adjustment per patient size (includes targeted exams where dose is matched to clinical indication); or iterative reconstruction. COMPARISON: CT Head without contrast 01/19/2018 9:23 AM FINDINGS: Brain: There is no acute intracranial hemorrhage, cerebral edema, or midline shift. Age-related cerebral and cerebellar volume loss is present. Ventricles: No hydrocephalus. Bones/joints: No acute fracture. Sinuses: Mucous retention cysts are noted in the maxillary sinuses, larger on the right. There is no acute sinusitis. Mastoid air cells: Visualized mastoid air cells are well aerated. Orbits: The included orbital structures are unremarkable. Vasculature: Atherosclerotic calcifications are seen involving the cavernous carotid arteries. Soft tissues: Mild right parietal scalp swelling is present. IMPRESSION: 1. No acute intracranial abnormality. 2. Chronic findings as discussed above. Electronically signed by: Ayo Conn On 03/25/2020 13:48:14 PM
--- NOTE | 2020-03-25 13:56 | REPVR ---
PROCEDURE INFORMATION: Exam: CT Cervical Spine Without Contrast Exam date and time: 03/25/2020 1:26 PM Age: 79 years old Clinical indication: Injury or trauma; Fall; Initial encounter; Blunt trauma; Additional info: Fall injury; Head injury on blood thinners TECHNIQUE: Imaging protocol: Computed tomography images of the cervical spine without contrast. Radiation optimization: All CT scans at this facility use at least one of these dose optimization techniques: automated exposure control; mA and/or kV adjustment per patient size (includes targeted exams where dose is matched to clinical indication); or iterative reconstruction. COMPARISON: CT Spine,cervical w/o contrast 01/19/2018 9:23 AM FINDINGS: Vertebrae: There is no acute fracture.There is straightening of the normal cervical lordosis. Discs/Spinal canal/Neural foramina: Severe degenerative changes of the cervical spine are present. There is moderate spinal canal stenosis at C3-C4, C5-C6, and C6-C7 due to posterior disc osteophyte complexes. Multilevel neural foraminal narrowing from uncinate spurring and facet arthropathy is noted. Soft tissues: Unremarkable. Lungs: Lung apices are normal. Vasculature: Atherosclerotic calcifications are present at the carotid bifurcations. IMPRESSION: 1. No acute abnormality. 2. Chronic findings as discussed above. Electronically signed by: Ayo Conn On 03/25/2020 13:56:45 PM
[2020-03-25 14:40] LABS: BASO # 0.1 10^3/uL (0.0-0.2); EOS # 0.1 10^3/uL (0.0-0.5); HEMATOCRIT 34.4 % (36.0-47.0); HEMOGLOBIN 11.6 g/dl (12.0-15.5); LYMPH # 0.7 10^3/uL (1.5-5.0); LYMPH % 11.1 % (24.0-44.0); MEAN CORPUSCULAR HEMOGLOBIN 30.8 pg (27.0-33.0); MEAN CORPUSCULAR HGB CONC 33.7 g/dl (32.0-36.5); MEAN CORPUSCULAR VOLUME 91.2 fl (80.0-96.0); MONO # 0.3 10^3/uL (0.0-0.8); MONO % 5.2 % (0.0-5.0); NEUTROPHILS # 5.1 10^3/uL (1.5-8.5); NEUTROPHILS % 81.1 % (36.0-66.0); PLATELET COUNT, AUTOMATED 196 10^3/uL (150-450); RED BLOOD COUNT 3.77 10^6/uL (4.00-5.40); WHITE BLOOD COUNT 6.3 10^3/uL (4.0-10.0)
[2020-03-25 14:55] LABS: INR 0.92; PROTHROMBIN TIME 12.6 SECONDS (11.8-14.0)
[2020-03-25 15:05] LABS: CALCIUM LEVEL 7.4 MG/DL (8.8-10.2); CREATININE FOR GFR 3.49 MG/DL (0.55-1.30); GLOMERULAR FILTRATION RATE 13.5 (>39); POTASSIUM SERUM 4.6 MEQ/L (3.5-5.1)
[2020-03-25] MEDS ORDERED: LIDOCAINE W/EPINEPHRINE 1% 20ML VIAL SC ONE (16:00)
[2020-03-25] MEDS ORDERED: KEFL500C17 PO (16:04)
[2020-03-25 16:30] VITALS: BP 188/80
== END 2020-03-25 17:19 | disposition home or self-care (01) ==
LOC: EDBD 13:05 → M ED 13:05
DX: S81.811A Laceration without foreign body, right lower leg, initial encounter (principal); S09.90XA Unspecified injury of head, initial encounter; W18.39XA Other fall on same level, initial encounter; Y92.018 Other place in single-family (private) house as the place of occurrence of the external cause; R55 Syncope and collapse; E11.9 Type 2 diabetes mellitus without complications; Z79.899 Other long term (current) drug therapy; Z79.82 Long term (current) use of aspirin; Z79.4 Long term (current) use of insulin; Z88.1 Allergy status to other antibiotic agents; Z88.8 Allergy status to other drugs, medicaments and biological substances

== ENCOUNTER 2020-06-23 12:00 | Inpatient (IN) | payer MEDICARE ==
[~2020-06-23] VITALS: Ht 162.6 cm; Wt 90.2 kg
[~2020-06-23 12:00] MED LIST changes: +KEFL500C17 PO; +PIPERACILLIN/TAZOBACTAM SOD 2.25 GM in D5W MINI-BAG PLUS 50 ML IV SCH
[2020-06-23] MEDS ORDERED: NS 1,000 ML IV ONE (12:45)
[2020-06-23 13:22] LABS: BASO % 0.3 % (0.0-1.0); EOS % 0.1 % (0.0-3.0); HEMATOCRIT 34.2 % (36.0-47.0); HEMOGLOBIN 11.3 g/dl (12.0-15.5); LYMPH # 0.7 10^3/uL (1.5-5.0); LYMPH % 4.4 % (24.0-44.0); MEAN CORPUSCULAR HEMOGLOBIN 28.5 pg (27.0-33.0); MEAN CORPUSCULAR VOLUME 86.4 fl (80.0-96.0); MONO # 0.4 10^3/uL (0.0-0.8); MONO % 2.9 % (0.0-5.0); NEUTROPHILS # 13.1 10^3/uL (1.5-8.5); NEUTROPHILS % 89.6 % (36.0-66.0); PLATELET COUNT, AUTOMATED 231 10^3/uL (150-450); RED BLOOD COUNT 3.96 10^6/uL (4.00-5.40); WHITE BLOOD COUNT 14.6 10^3/uL (4.0-10.0)
[2020-06-23 13:35] LABS: INR 1.04; PROTHROMBIN TIME 13.8 SECONDS (12.5-14.3)
[2020-06-23 13:36] LABS: PARTIAL THROMBOPLASTIN TIME 33.1 SECONDS (24.2-38.5)
[2020-06-23 14:05] LABS: ALBUMIN 1.8 GM/DL (3.2-5.2); BILIRUBIN,DIRECT 0.1 MG/DL (0.0-0.2); BILIRUBIN,TOTAL 0.3 MG/DL (0.2-1.0); CALCIUM LEVEL 7.3 MG/DL (8.8-10.2); CK-MB VALUE MASS 109.1 NG/ML (<3.6); CREATININE FOR GFR 7.12 MG/DL (0.55-1.30); FREE T4 1.24 NG/DL (0.76-1.46); GLOMERULAR FILTRATION RATE 5.9 (>39); MB/CK RELATIVE INDEX 4.48 (< OR =4); POTASSIUM SERUM 3.4 MEQ/L (3.5-5.1); THYROID STIMULATING HORMONE 2.42 uIU/ML (0.358-3.740); TOTAL PROTEIN 5.1 GM/DL (6.4-8.2); TROPONIN I 0.08 NG/ML (< 0.10)
[2020-06-23] MEDS ORDERED: PATIENT COMMENT (14:05)
[2020-06-23] MEDS ORDERED: BAYE325T13 PO (14:05)
[2020-06-23] MEDS ORDERED: SM M250T PO (14:05)
[2020-06-23] MEDS ORDERED: VITA50005 PO (14:05)
[2020-06-23] MEDS ORDERED: FERR1TAB8 PO (14:05)
[2020-06-23] MEDS ORDERED: LANTINJ4 SC (14:05)
[2020-06-23] MEDS ORDERED: POTA10TA17 PO (14:05)
[2020-06-23] MEDS ORDERED: BUME2TAB3 PO (14:05)
[2020-06-23] MEDS ORDERED: LECI518C PO (14:05)
[2020-06-23] MEDS ORDERED: GENT1OI TOP (14:05)
[2020-06-23] MEDS ORDERED: FLOR250C PO (14:05)
[2020-06-23] MEDS ORDERED: CALC600C3 PO (14:05)
[2020-06-23] MEDS ORDERED: REDCAP4 PO (14:05)
--- NOTE | 2020-06-23 14:29 | REP ---
INDICATION: CHEST PAIN COMPARISON: 01/19/2018 TECHNIQUE: Portable AP view of the chest FINDINGS: Examination is limited by portable technique, underpenetration and positioning. Small right pleural effusion and very subtle right-sided infiltrates cannot be excluded. Underlying chronic interstitial changes noted. Left hemithorax is clear. No pneumothorax. Mediastinum and cardiac silhouette are stable and within normal limits. Skeletal structures are intact. IMPRESSION: Small right pleural effusion and possible subtle right-sided early infiltrate <Electronically signed by David Finn > 06/23/20 [id number]
[2020-06-23 15:51] LABS: PERITONEAL FL COLOR PALE YELLOW (COLORLESS); SOURCE, BODY FLUID PERITONEAL
[2020-06-23 15:52] LABS: APPEARANCE, BODY FLUID CLOUDY (CLEAR)
--- NOTE | 2020-06-23 16:03 | REPVR ---
PROCEDURE INFORMATION: Exam: CT Head Without Contrast Exam date and time: 06/23/2020 3:33 PM Age: 79 years old Clinical indication: Pain; Headache; Additional info: Altered mental status TECHNIQUE: Imaging protocol: Computed tomography of the head without contrast. Radiation optimization: All CT scans at this facility use at least one of these dose optimization techniques: automated exposure control; mA and/or kV adjustment per patient size (includes targeted exams where dose is matched to clinical indication); or iterative reconstruction. COMPARISON: CT Head without contrast 03/25/2020 1:27 PM FINDINGS: Brain: No mass, mass effect, parenchymal hemorrhage, or evidence of large acute infarct. No asymmetric sulcal effacement or loss of the markham-white interface. No extra-axial hemorrhage. Mild diffuse cerebral volume loss. Mild patchy hypodensity in the periventricular and subcortical white matter in both hemispheres suggesting mild small vessel ischemic disease. Cerebral ventricles: There is no hydrocephalus. Basal cisterns are patent. No midline shift. Bones/joints: Unremarkable. No acute fracture. Paranasal sinuses: Mucous retention cyst or polyp in the right maxillary sinus, and small amount of inspissated mucus in the right maxillary sinus. Mastoid air cells: Visualized mastoid air cells are well aerated. Vasculature: Atherosclerotic calcification in the internal carotid arteries bilaterally. Soft tissues: Unremarkable. IMPRESSION: 1. No intracranial hemorrhage or evidence of large acute infarct. 2. Atherosclerosis, patchy small vessel ischemic disease, and cerebral volume loss. Electronically signed by: Hilary Carolina On 06/23/2020 16:02:58 PM
[2020-06-23] MEDS ORDERED: CEFEPIME HCL 2 GM in D5W MINI-BAG PLUS 50 ML IV ONE (16:30)
[2020-06-23] MEDS ORDERED: VANCOMYCIN 1000MG/20ML VIAL IP ONE ×2 (17:00→20:00)
[2020-06-23] MEDS ORDERED: GENTAMICIN SULF 80MG/2ML VIAL IP ONE ×2 (17:00→20:00)
[2020-06-23] MEDS ORDERED: PIPERACILLIN/TAZOBACTAM SOD 4.5 GM in D5W MINI-BAG PLUS 100 ML IV SCH (17:15)
[2020-06-23] MEDS ORDERED: NS 500 ML IV ONE (17:30)
[2020-06-23] MEDS ORDERED: POTASSIUM CHLORIDE 10% LIQ 20 MEQ/15 ML UDC PO ONE (17:30)
[2020-06-23 18:40] VITALS: BP 134/60
[2020-06-23] MEDS ORDERED: GLUCAGON INJ 1MG VIAL SC PRN (19:45)
[2020-06-23] MEDS ORDERED: GLUCOSE 4GM CHEW TABLET PO PRN (19:45)
--- NOTE | 2020-06-23 19:52 | HPEPDOC ---
[facility] Medical History & Physical Date of Admission Jun 23, 2020 Date of Service: Jun 23, 2020 History and Physical CHIEF COMPLAINT: weakness HISTORY OF PRESENT ILLNESS: 79-year-old female past medical history of ESRD on peritoneal dialysis, insulin- dependent diabetes mellitus, hypertension, brought in the ED by EMS after being called for weakness at her residence where one of her house mates noticed she w as weak and confused. Patient tells me she does not have any abdominal pain but feels weak overall. She denies any other problems but Im unsure if she just doesnt want to talk at this time and wants to sleep. She told me shes not in any pain and her legs are not more swollen than normal. In the ED patient was confused but directable and answering basic questions and initially wanting to leave. She was found to have personal items and it probably was consulted. She was also found to have a UTI and pneumonia and was given one dose of cefepime. Patient was initially hypertensive but responded well to bolus of fluid. PAST MEDICAL HISTORY: ESRD on PD HTN IDDM PAST SURGICAL HISTORY: Cholecystectomy Right foot toe amputation SOCIAL HISTORY: She cannot tell me if she drinks ETOH or if she uses illicit drugs. She did tell me she smokes tobacco but quit 40 Pack year history. FAMILY HISTORY: shes unable to recollect ALLERGIES: Please see below. REVIEW OF SYSTEMS: full 10 system ROS completed and negative except as in ROS. HOME MEDICATIONS: Please see below. PHYSICAL EXAMINATION: Constitutional: Awake and alert, in no apparent distress. Sleepy at times and nods off. Disheveled. Poor hygiene. ENT: Mucosa is dry Respiratory: Lungs mild crackles bilaterally. No respiratory distress. No use of accessory muscles. Cardiovascular: RRR S1 and S2 are normal Gastrointestinal: Abdomen is soft, non distended, non tender, BS present. No rebound tenderness. Musculoskeletal: 1+ LE edema. Neurologic: Not cooperating with exam to assess but no obvious focal neurologic deficits Mental Status: A&O x1, normal affect Skin: b/l LE chronic venous stasis changes. Unstagable ulcers on buttocks, sacrum and left upper leg present on admission. LABORATORY DATA: See below. MICROBIOLOGY: Please see below. ASSESSMENT/PLAN # Peritonitis: IP vanc and gentamycin per nephron who was consulted. WBC peritoneal fluid 8949 on admission # ESRD: on PD. Nepo consulted Dr mckeon. # CAP and UTI: started on Zosn. UCx, BCx pending. # Mild Rabdo: IVFs. Trend CPK. # IDDM: Levemir. ISS. Frequent accu-checks. Hypoglycemic precuations. # Hyponatremia: NS. Trend BMP. # Ulcers: wound care consult. # Hypokalemia: replace # DVT proph: heparin A Yousef Hospitalist Vital Signs Vital Signs Date Time Temp Pulse Resp B/P (MAP) Pulse Ox O2 Delivery O2 Flow Rate FiO2 06/23/20 13:45 73 20 118/53 (74) 98 06/23/20 12:11 96.9 Room Air Laboratory Data Labs 24H Laboratory Tests 2 06/23/20 12:56: Immature Granulocyte % (Auto) 2.7, Neutrophils (%) (Auto) 89.6H, Lymphocytes (%) (Auto) 4.4L, Monocytes (%) (Auto) 2.9, Eosinophils (%) (Auto) 0.1, Basophils (%) (Auto) 0.3, Neutrophils # (Auto) 13.1H, Lymphocytes # (Auto) 0.7L, Monocytes # (Auto) 0.4, Eosinophils # (Auto) 0.0, Basophils # (Auto) 0.0, Nucleated Red Blood Cells % (auto) 0.0, Prothrombin Time 13.8, Prothromb Time International Ratio 1.04, Activated Partial Thromboplast Time 33.1, Anion Gap 16, Glomerular Filtration Rate 5.9L, Lactic Acid Level 1.5, Calcium Level 7.3L, Total Bilirubin 0.3, Direct Bilirubin 0.1, Aspartate Amino Transf (AST/SGOT) 134H, Alanine Aminotransferase (ALT/SGPT) 59, Alkaline Phosphatase 134H, Total Creatine Kinase 2435H, Creatine Kinase MB 109.1H, Creatine Kinase MB Relative Index 4.48H, Troponin I 0.08, Total Protein 5.1L, Albumin 1.8L, Albumin/Globulin Ratio 0.5L, Lipase 146, Thyroid Stimulating Hormone (TSH) 2.420, Free Thyroxine 1.24 06/23/20 14:58: Urine Color YELLOW, Urine Appearance TURBIDH, Urine pH 5.0, Urine Specific [place] 1.013, Urine Protein 2+H, Urine Glucose (UA) NEGATIVE, Urine Ketones NEGATIVE, Urine Blood 2+H, Urine Nitrite NEGATIVE, Urine Bilirubin NEGATIVE, Urine Urobilinogen 0.2, Urine Leukocyte Esterase 2+H, Urine WBC (Auto) TNTCH, Urine RBC (Auto) 51H, Urine Hyaline Casts (Auto) 0, Urine Bacteria (Auto) 3+H, Urine Squamous Epithelial Cells 0, Urine Mucus (Auto) SMALL, Urine Sperm (Auto) 06/23/20 15:09: Body Fluid WBC (Auto) 8949H, Body Fluid RBC (Auto) 2, Body Fluid Mononuclear Cells % Auto 11.4H, Fluid Polymorphonuclear Cell % Auto 88.6H, Peritoneal Fluid Source PERITONEAL, Peritoneal Fluid Color PALE YELLOW, Peritoneal Fluid Appearance CLOUDY CBC/BMP Laboratory Tests 06/23/20 12:56 Microbiology Microbiology 06/23/20 Fungal Smear, Received Pending 06/23/20 Fungal Culture, Received Pending 06/23/20 Body Fluid Culture, Received Pending 06/23/20 Urine Culture, Received Pending 06/23/20 Blood Culture, Received Pending 06/23/20 Blood Culture, Received Pending 06/23/20 Respiratory Virus Panel (PCR) (SHAYLEE) - Final, Complete Home Medications Scheduled Aspirin (Aspirin) 325 Mg Tablet, 325 MG PO DAILY Bumetanide (Bumetanide) 2 Mg Tablet, 2 MG PO BID Calcium Carbonate/Vitamin D3 (Calcium 600+D Softgel) 1 Each Capsule, 1 CAP PO DAILY Ergocalciferol (Vitamin D2) (Vitamin D2) 50,000 Units Cap, 50,000 UNITS PO QWEEK Ferrous Sulfate (Ferrous Sulfate) 325 Mg Tablet, 325 MG PO DAILY Gentamicin Sulfate (Gentamicin Sulfate) 15 Gm Oint...g., 1 DOSE TOP ASDIRECTED 0.1% - APPLY TO PERITENEAL DIALYSIS CATHETER Insulin Glargine,Hum.rec.anlog (Lantus Solostar) 100 Unit/1 Ml Insuln.pen, 10 UNITS SC DAILY Lecithin (Lecithin) 518 Mg Capsule, 518 MG PO DAILY Magnesium (Magnesium) 250 Mg Tablet, 500 MG PO DAILY Potassium Chloride (Potassium Chloride) 10 Meq Tab.er.prt, 20 MEQ PO DAILY Red Yeast Rice (Red Yeast Rice) 600 Mg Capsule, 1,200 MG PO DAILY Saccharomyces Boulardii (Florastor) 250 Mg Capsule, 250 MG PO BID Miscellaneous Medications [Patient Comment] MED LIST OBTAINED FROM DIALYSIS, UNABLE TO VERIFY WITH PATIENT Allergies Coded Allergies: atorvastatin (Verified Allergy, Intermediate, swelling, 03/25/20) levofloxacin (Verified Allergy, Intermediate, swelling, 03/25/20) magnesium oxide (Verified Allergy, Intermediate, swelling, 03/25/20) povidone-iodine (Verified Allergy, Intermediate, rash, 03/25/20) acetaminophen (Verified Adverse Reaction, Intermediate, increased heartrate, 03/25/20) A-FIB/CHADSVASC A-FIB History Current/History of A-Fib/PAF?: No KARL COLLIER MD Jun 23, 2020 17:14
[2020-06-23 20:14] LABS: HEMOGLOBIN A1c 6.5 %
[2020-06-23] MEDS: HumaLOG INSULIN (NovoLOG) PER UNIT SC SCH (20:56)
[2020-06-23] MEDS: LEVEMIR (INSULIN DETEMIR) 1 UNITS/0.01ML SC SCH (21:00)
[2020-06-23] MEDS: NS 1,000 ML IV SCH (21:17)
[2020-06-23] MEDS: HEPARIN SOD (PORCINE) 5000UNITS/ML 1ML VIAL/SYRINGE SC SCH (21:18)
[2020-06-23] MEDS: NYSTATIN 100,000 UNITS/GM TOPICAL PWD 15 GM TOP SCH (21:18)
[2020-06-23] MEDS: BUMETANIDE 1 MG TAB PO SCH (21:18)
[2020-06-24 01:00] VITALS: BP 123/76
[2020-06-24 04:48] LABS: HEMATOCRIT 29.5 % (36.0-47.0); HEMOGLOBIN 9.8 g/dl (12.0-15.5); MEAN CORPUSCULAR HEMOGLOBIN 28.7 pg (27.0-33.0); MEAN CORPUSCULAR HGB CONC 33.2 g/dl (32.0-36.5); MEAN CORPUSCULAR VOLUME 86.3 fl (80.0-96.0); PLATELET COUNT, AUTOMATED 184 10^3/uL (150-450); RED BLOOD COUNT 3.42 10^6/uL (4.00-5.40); WHITE BLOOD COUNT 11.6 10^3/uL (4.0-10.0)
[2020-06-24 05:00] VITALS: BP 111/83
[2020-06-24] MEDS: PIPERACILLIN/TAZOBACTAM SOD 2.25 GM in D5W MINI-BAG PLUS 50 ML IV SCH ×3 (05:20→23:37)
[2020-06-24 05:26] LABS: ALBUMIN 1.3 GM/DL (3.2-5.2); BILIRUBIN,TOTAL 0.3 MG/DL (0.2-1.0); CALCIUM LEVEL 6.6 MG/DL (8.8-10.2); CREATININE FOR GFR 6.51 MG/DL (0.55-1.30); GLOMERULAR FILTRATION RATE 6.6 (>39); MAGNESIUM LEVEL 1.4 MG/DL (1.8-2.4); POTASSIUM SERUM 2.7 MEQ/L (3.5-5.1); TOTAL PROTEIN 4.7 GM/DL (6.4-8.2)
[2020-06-24] MEDS: KCL 10MEQ/100ML SWI (KRUN) 10 MEQ in IV 1 EA IV SCH ×4 (06:39→10:51)
[2020-06-24 07:27] VITALS: BP 127/61
[2020-06-24 07:42] LABS: APPEARANCE, BODY FLUID CLOUDY (CLEAR); PERITONEAL DIALYSATE FL COLOR YELLOW (COLORLESS); SOURCE, BODY FLUID PERITONEAL DIALYSATE
[2020-06-24] MEDS ORDERED: POTASSIUM CHLORIDE 10 MEQ SR TABLET PO ONE (08:00)
[2020-06-24] MEDS: BUMETANIDE 1 MG TAB PO SCH (08:57)
[2020-06-24] MEDS: HumaLOG INSULIN (NovoLOG) PER UNIT SC SCH ×4 (08:57→20:30)
[2020-06-24] MEDS: FERROUS SULFATE 325MG TAB PO SCH (08:58)
[2020-06-24] MEDS: POTASSIUM CHLORIDE 10 MEQ SR TABLET PO SCH (08:58)
[2020-06-24] MEDS: ASPIRIN 325 MG TAB PO SCH (08:58)
--- NOTE | 2020-06-24 08:58 | REP ---
INDICATION: Does she have an infiltrate suggestive of PNA? COMPARISON: 06/23/2020, 01/19/2018 TECHNIQUE: Portable AP view of the chest FINDINGS: The mediastinum and cardiac silhouette are stable and within normal limits for portable technique. Mild elevation to the right hemidiaphragm is again noted. Visualized lung hernandez are relatively well aerated and without discrete focal consolidation. No pneumothorax. Subtle atelectasis or pleural fluid at the right base cannot definitively be excluded. IMPRESSION: Relatively stable chronic findings as described above. Cannot definitively exclude very minimal right basilar atelectasis or small right pleural effusion and correlation with auscultation is recommended. <Electronically signed by David Finn > 06/24/20 0868
[2020-06-24] MEDS: HEPARIN SOD (PORCINE) 5000UNITS/ML 1ML VIAL/SYRINGE SC SCH ×2 (08:59→20:30)
[2020-06-24] MEDS: NYSTATIN 100,000 UNITS/GM TOPICAL PWD 15 GM TOP SCH (08:59)
[2020-06-24 12:00] VITALS: BP 110/58
--- NOTE | 2020-06-24 12:18 | IPNPDOC ---
Text Note Date of Service The patient was seen on 06/24/20. NOTE Subjective: Patient seen and examined this morning at bedside. Patient still says she wants to go home but unable to get out of bed at this time. She denies being in any pain. She denies abdominal pain especially. She continues to be a little confused although she knows she is in [facility] and knows her date of many for answers. Inconsistent. Nurse tells me there is no overnight events. In the evening was complaining of left knee pain extending to left hip. Objective: Constitutional: Awake and alert, in no apparent distress. Sleepy at times and nods off. Disheveled. Poor hygiene. ENT: Mucosa is dry Respiratory: Lungs mild crackles bilaterally. No respiratory distress. No use of accessory muscles. Cardiovascular: RRR S1 and S2 are normal Gastrointestinal: Abdomen is soft, non distended, non tender, BS present. No rebound tenderness. Musculoskeletal: 1+ LE edema. Neurologic: Not cooperating with exam to assess but no obvious focal neurologic deficits Mental Status: A&O x1, normal affect Skin: b/l LE chronic venous stasis changes. Unstagable ulcers on buttocks, sacrum and left upper leg present on admission. Assessment/plan: 79-year-old female past medical history of ESRD on peritoneal dialysis, insulin- dependent diabetes mellitus, hypertension, brought in the ED by EMS after being called for weakness at her residence. Found to have peritonitis as well as UTI and CAP. Patient was in a state of dishevelment and poor hygeine on arrival. # Peritonitis: IP vanc and gentamycin per nephron who was consulted. WBC peritoneal fluid 8949 on admission -> 4193. # ESRD: on PD. Neprho consulted Dr mckeon. # CAP and UTI: started on Zosn. UCx, BCx pending. Leukocytosis downtrending. # Mild Rabdo: Improved with IVFs. CPK downtrended. # IDDM: Levemir. ISS. Frequent accu-checks. Hypoglycemic precuations. # Disheveled, poor hygeine, multiple wounds: Not caring well for herself. advanced wound care consult Dr Mann recommends surgery for bedridment. Consulted Dr Stewart to evaluate the multiple ulcers. Juarez. Rectal tube. Dietitian consult. # Left knee pain: Left knee and hip xray # Suspect undiagnosed dementia: quiet time, frequent reorientation, at risk of sundowning. IM Haldol as needed for severe agitation # Hyponatremia: Improved. NS. Trend BMP. # Hypokalemia: replace. Monitor. # DVT proph: heparin A Nathanael Hospitalist VS,Ar, I+O VS, Dinobone, I+O Laboratory Tests 06/23/20 12:56 06/24/20 04:32 Vital Signs Date Time Temp Pulse Resp B/P (MAP) Pulse Ox O2 Delivery O2 Flow Rate FiO2 06/24/20 07:27 98.0 92 22 127/61 (83) 97 Room Air I&O- Last 24 Hours up to 6 AM 06/24/20 06:00 Intake Total 5950 ml Output Total 3700 ml Balance 2250 ml KARL COLLIER MD Jun 24, 2020 12:18
--- NOTE | 2020-06-24 14:19 | ECGEPIP ---
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
[2020-06-24] MEDS: CALCIUM/VITAMIN D 500 MG TAB PO SCH (14:39)
[2020-06-24 16:00] VITALS: BP 108/68
[2020-06-24] MEDS: NS 1,000 ML IV SCH (18:15)
--- NOTE | 2020-06-24 19:47 | REP ---
INDICATION: left knee pain extending to left hip. COMPARISON: None. TECHNIQUE: Single portable view obtained of the left hip. FINDINGS: No gross fracture or dislocation is seen. There is mild spurring of the greater trochanter. There is mild joint space narrowing and subchondral sclerosis at the hip joint. A stent is seen in the superficial femoral artery. IMPRESSION: Mild degenerative changes. No gross fracture. <Electronically signed by Raphael Greene > 06/24/201942
--- NOTE | 2020-06-24 19:48 | REP ---
INDICATION: left knee pain COMPARISON: None. TECHNIQUE: Portable AP and lateral views left knee. FINDINGS: There is no acute fracture or dislocation. Mild diffuse joint space narrowing. No definite joint effusion is seen. There are vascular calcifications identified. A stent is seen in the distal superficial femoral artery. IMPRESSION: Mild degenerative changes. No fracture or dislocation. <Electronically signed by Raphael Greene > 06/24/20 [id number]
[2020-06-24 20:00] VITALS: BP 110/57
[2020-06-24] MEDS: LEVEMIR (INSULIN DETEMIR) 1 UNITS/0.01ML SC SCH (20:29)
[2020-06-24] MEDS: VANICREAM MOISTURIZING SKIN CREAM 113GM TUBE TOP SCH (20:29)
[2020-06-24] MEDS ORDERED: VANICREAM MOISTURIZING SKIN CREAM 113GM TUBE TOP SCH (21:00)
[2020-06-24] MEDS ORDERED: GENTAMICIN SULF 80MG/2ML VIAL IP ONE (22:00)
[2020-06-25] VITALS: BP 98/55
[2020-06-25 04:00] VITALS: BP 99/55
[2020-06-25] MEDS: DEXTROSE 50% 50 ML SYRINGE IV PRN ×2 (06:41→06:49)
[2020-06-25] MEDS: PIPERACILLIN/TAZOBACTAM SOD 2.25 GM in D5W MINI-BAG PLUS 50 ML IV SCH (06:57)
[2020-06-25 07:08] LABS: BASO % 0.1 % (0.0-1.0); EOS # 0.1 10^3/uL (0.0-0.5); EOS % 1.4 % (0.0-3.0); HEMOGLOBIN 9.7 g/dl (12.0-15.5); LYMPH # 0.7 10^3/uL (1.5-5.0); LYMPH % 7.7 % (24.0-44.0); MEAN CORPUSCULAR HEMOGLOBIN 28.9 pg (27.0-33.0); MEAN CORPUSCULAR HGB CONC 33.4 g/dl (32.0-36.5); MEAN CORPUSCULAR VOLUME 86.3 fl (80.0-96.0); MONO # 0.3 10^3/uL (0.0-0.8); MONO % 2.9 % (0.0-5.0); NEUTROPHILS % 85.7 % (36.0-66.0); PLATELET COUNT, AUTOMATED 160 10^3/uL (150-450); RED BLOOD COUNT 3.36 10^6/uL (4.00-5.40); WHITE BLOOD COUNT 9.4 10^3/uL (4.0-10.0)
[2020-06-25] MEDS: HumaLOG INSULIN (NovoLOG) PER UNIT SC SCH ×4 (07:30→21:00)
--- NOTE | 2020-06-25 07:38 | CR ---
DATE OF CONSULTATION: 06/23/2020 REQUESTING PHYSICIAN: Dr. Bautista CONSULTING PHYSICIAN: Dr. Brar REASON FOR CONSULTATION: Management of end-stage renal disease, on peritoneal dialysis in this patient with peritonitis. HISTORY OF PRESENT ILLNESS: Domenico Luis is well known to me. She is a 79-year-old female with a past medical history of end-stage renal disease, on peritoneal dialysis, insulin-dependent diabetes mellitus, hypertension, secondary hyperparathyroidism of renal origin, anemia of chronic renal failure, peripheral vascular disease, diastolic congestive heart failure, and other comorbid conditions mentioned below. She was brought to the hospital by emergency medical services (EMS) yesterday when she was found altered and covered in excrement. 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 Patient was found to be in fluid overload in the emergency room and hypotensive with systolic in the 80s to 90s on arrival. Laboratory studies revealed leukocytosis, and peritoneal fluid showed elevated white blood cells (WBC). She is admitted for peritonitis with altered mental status and sepsis. I saw the patient in the evening in the progressive care unit, where she was oriented to person, place, and situation and was able to tell me that it was June 2020 and that the upcoming holiday was , but staff reports she has been on and off intermittently confused. MEDICAL HISTORY: 1. End-stage renal disease, on peritoneal dialysis. 2. History of hypertension. 3. Insulin-dependent diabetes mellitus. 4. History of peritonitis in the past. 5. Diastolic congestive heart failure. 6. Anemia of chronic renal failure. 7. Secondary hyperparathyroidism of renal origin. 8. Dyslipidemia. SURGICAL HISTORY: 1. Status post right transmetatarsal amputation. 2. History of peritoneal dialysis catheter placement. ALLERGIES: ACETAMINOPHEN, ATORVASTATIN, LEVOFLOXACIN, MAGNESIUM OXIDE, POVIDONE IODINE. HME MEDICATIONS: - aspirin 325 mg by mouth daily - Bumex 2 mg by mouth twice a day - calcium plus vitamin D one daily - vitamin D2, 50,000 units a week - ferrous sulfate 325 mg by mouth daily - insulin - magnesium 500 mg by mouth daily - potassium 20 mEq by mouth daily - red yeast rice 1200 mg by mouth daily SOCIAL HISTORY: There is no reported drinking, smoking, or drug use. FAMILY HISTORY: No significant family history of end-stage renal disease requiring hemodialysis. REVIEW OF SYSTEMS: CONSTITUTIONAL: She denies fevers or chills. She reports increasing fatigue and weakness. EYES: Denies blurry vision or double vision ENT: She is very [id number]. She denies odynophagia. CARDIAC: She reports chronically swollen legs. She denies chest pain, palpitations. RESPIRATORY: She reports cough. She denies hemoptysis. GASTROINTESTINAL: She denies vomiting or diarrhea. She denies abdominal pain. GENITOURINARY: She makes urine. She denies dysuria. MUSCULOSKELETAL: She reports right transmetatarsal amputation. Denies any acute myalgias. Complains of knee pain. NEUROLOGIC: She denies seizures or stroke. PSYCHIATRIC: Denies depression or anxiety. ENDOCRINE: Has history of type 2 diabetes mellitus and secondary hyperparathyroidism of renal origin. HEMATOLOGIC: She reports anemia of chronic renal failure. She denies anticoagulant use. Remainder review of systems is negative or as per history of present illness (HPI). Vital signs: Temperature 97.4, pulse 88, respiratory rate 20, blood pressure 134/60, saturating 97% on room air. Patient is seen in the progressive care unit (PCU). Just arrived up from the emergency room. She is very [id number] but awake and alert. Able to tell me her name. She knows she is at [facility]. She is able to tell me that it is June 2020, and the holiday coming up is . She is cooperative with physical exam. She recognizes me, and she greets me by my name. She is disheveled. Hygiene is poor. Tongue is dry. Neck is supple. Jugular veins are mildly elevated. Heart sounds are regular. S1, S2. There is 1-2+ leg edema. Lungs show scattered crackles. Dry cough is noted. There is no accessory muscle use. She is on room air. Abdomen is soft and nontender. There is erythema at the peritoneal dialysis (PD) catheter exit site, but there is no purulent discharge. Neurologic: She was slow and needed repeated questioning in order to answer the question but was oriented to person, place, and season. Skin: There were chronic venous stasis changes of the legs. Musculoskeletal: Leg edema. Right transmetatarsal amputation. LABORATORY DATA: White count 14.6, hemoglobin 11.3, platelets 231. Sodium 130, potassium 3.4, BUN 74. A1c 6.5. Lactic acid 1.5. CK 2400. Albumin 1.8. Peritoneal dialysis fluid: WBC 9000. Peritoneal dialysis fluid culture and blood culture pending Urinalysis showed too numerous to count WBC along with 3+ bacteremia and negative nitrite. Chest x-ray June 23: Small right pleural effusion and possible subtle right early infiltrate. INPATIENT MEDICATIONS: She is ordered for vancomycin 2 grams intraperitoneal with PD exchange tonight and gentamicin 80 mg with PD exchange tonight. She received normal saline times 1.5 liter bolus. She is also on normal saline at 100 mL an hour, and I decreased that to 30 mL an hour. Aspirin 325 mg by mouth daily, Bumex 2 mg by mouth twice a day, ferrous sulfate 325 mg by mouth daily, heparin 5000 units subcutaneous every 12 hours, insulin, nystatin topical. PROBLEMS: 1. Peritonitis associated with peritoneal dialysis. Patient presented with leukocytosis and hypotension. Her PD cell count showed almost 9000 WBC. Her PD fluid cultures are pending. She is written for intraperitoneal vancomycin and gentamicin with her PD exchange tonight. We will continue to check a daily peritoneal cell count. The PD catheter exit site is notable for mild erythema, but there was no purulent discharge noted otherwise. She has received 1.5 liters of normal saline in the emergency room. She has prominent leg edema. I feel she was unlikely to be performing peritoneal dialysis at home when she was altered. I have cut down the rate of fluids, and I would recommend to stop fluids once she is tolerating oral intake. 2. End-stage renal disease, on peritoneal dialysis. The patient has peripheral edema. She came in with hypotension related to her peritonitis. She received 1500 mL of normal saline in the emergency room. I cut her standing fluids to 30 an hour. I will plan to stop this fluid once the patient has oral intake. She is written for 5 exchanges daily, all 2-liter volume with either 2.5% or 4.25% dianeal. She is getting intraperitoneal vancomycin and gentamicin with her overnight exchange tonight. Continue daily cell count. 3. Diastolic congestive heart failure. Patient has prominent leg edema. I do not think she was performing peritoneal dialysis at home recently while she was altered with peritonitis. Her chest x-ray showed small right pleural effusion, otherwise no pulmonary edema. She is comfortable on room air. I cut her intravenous (IV) fluids to 30 an h our. Would recommend to stop once she is tolerating oral. Her Bumex is presently on hold. Her volume status will be assessed daily. She has a tendency toward hypervolemia. 4. Hypokalemia. She is receiving oral supplementation. 5. Hypervolemic hyponatremia. It is due to noncompliance with peritoneal dialysis. She is written for five PD exchanges, and I expect sodium level to improve. 6. Anemia related to chronic renal failure. Hemoglobin is stable at present, and no intervention is needed. 7. Metabolic encephalopathy. Patient was oriented at the time of my visit to person, place, season, and upcoming holiday, but she was slow and required repeated questioning before she answered. She is not at baseline mentation. There is metabolic encephalopathy. Her CT head was negative for acute changes. Thank you for involving me in the care of Ms. Baca. I will be happy to follow her along with her. DAMARIS
--- NOTE | 2020-06-25 07:41 | IPN ---
DATE: 06/24/2020 SUBJECTIVE: Domenico is seen and examined this morning at the bedside in the Progressive Care Unit. Today, I found her to be altered. She was able to tell me her name and the month but she answered other simple questions inappropriately and she became tearful. Her peritoneal cell count is downtrending. She remains afebrile and blood pressures have improved. She denies nausea, vomiting or diarrhea. She complains of knee pain and leg tenderness. PHYSICAL EXAMINATION: VITAL SIGNS: Temperature 98.0, pulse 92, respiratory rate 18, blood pressure 127/61, saturating 95% on room air. Review of I and Os yesterday shows positive 1.2 liters, weight on the bed scale today is not recorded. GENERAL APPEARANCE: The patient is seen lying in bed, head of the bed elevated. Awake and alert, still recognizes me. Able to tell her name but tells the wrong year, disheveled, poor hygiene, tongue is dry. NECK: Supple. Jugular veins are not elevated. HEART: Heart sounds are regular, S1 and S2. LUNGS: There is a dry cough noted. There is occasional rhonchus. No accessory muscle use. No tachypnea. ABDOMEN: Soft. There is PD fluid in place. PD catheter exit site has erythema. The PD fluid that has drained out is still cloudy looking. EXTREMITIES: Legs show 1 to 2+ edema bilaterally. There is a right transmetatarsal amputation. She lifts both of her arms on command but does not lift her legs. NEUROLOGIC: She is oriented to person. LABS: PD cell count shows 4100 WBCs, down from 8900 yesterday, hemoglobin is 9.8, white count is 11.6, down from 14 yesterday. Sodium 134, potassium is 2.7, BUN 69, creatinine is 6.5. Magnesium is 1.4. CK down to 1400. Albumin is 1.3. PD fluid culture, urine culture and blood culture are all pending. Chest x-ray June 24 shows small right pleural effusion. INPATIENT MEDICATIONS: Primary Team gave her a dose of Cefepime. She also received multiple K-runs and potassium 40 mEq p.o. daily as well. Normal saline is reduced to 30 mL an hour, she is also on Zosyn 2.25 grams IV q. 8 hourly. The remainder of medications are unchanged from prior. PROBLEMS: 1. Peritonitis in this patient with peritoneal dialysis. Her PD fluid cell count is downtrending from 8900 down to 4100. She received intraperitoneal Vancomycin and Gentamicin on last nights overnight exchange and she will receive intraperitoneal Gentamicin again tonight, the cultures are all pending. Continue daily cell count. She has had a history of peritonitis in the past as well. 2. Endstage renal disease on peritoneal dialysis. Her PD exchanges have been uneventful. She is receiving five exchanges daily, all 2.5%. She is not having much oral intake. She is on low dose IV fluid, normal saline at 30 mL an hour which should be stopped once she is eating and drinking. 3. Diastolic congestive heart failure, mildly decompensated. She has chronic leg edema and she does not follow fluid restriction in the outpatient setting. She was hypotensive on arrival yesterday and received 1.5 liters of IV fluid. Continue current peritoneal dialysis prescription and will stop IV fluid once she is taking oral intake (presently normal saline at 30). 4. Mild rhabdomyolysis, improved with dialysis and gentle hydration. Her CPK has downtrended. 5. Hypervolemic hyponatremia, it has improved with resuming peritoneal dialysis. 6. Hypokalemia, she is receiving aggressive supplementation. Her magnesium is also low at 1.4 and I am resuming her on magnesium supplementation which she takes at home as well. MTDD
--- NOTE | 2020-06-25 07:45 | CR ---
DATE OF CONSULTATION: 06/24/2020 Advanced wound care consult via telemedicine. CONSULTATION REQUESTED BY: Dr. Huffman This is regarding treatment and recommendations for advanced wound. A 79-year-old diabetic female who has been followed at our wound center for diabetic foot wounds, which have now resolved. She was recently admitted to [facility] for frequent falls, and the suspected diagnosis of primary peritonitis secondary to peritoneal dialysis catheter. At present, this is being treated with intravenous (IV) Zosyn, and if this actually is a diagnosis, removal of the peritoneal dialysis catheter would be indicated with an eternal access for dialysis. Patient has yeast infections in both right and left inguinal folds, and this should be treated with InterDry, which is already in place. InterDry should be inserted with approximately 2-3 cm outside exposure to the wound folds, avoiding doubling up on or overlapping the InterDry. This can be removed, allowed to air dry for 3 minutes, and reinserted up to 5 days. The patient has a deep tissue injury involving her right heel, which measures 3.6 cm x 3.4 cm. At present this is nonfluctuant with out outside periwound erythema and has not drained. This is a potential problem and should be treated with a foam dressing and heel float boot and watched closely, as often deep tissue injuries will progress to stage III and IV pressure injuries. On the patient's left foot, there is a superficial callus, which indicates a closed wound. Of more concern, the patient is incontinent of stool and has ischemic necrosis of both buttocks and upper posterior right thigh. These are unstageable pressure injuries and measures 15.0 cm x 12.0 cm. When there is full-thickness ischemic necrosis of the tissue, the treatment initially is to debride these wounds. This most probably will have to be done in the operating room with some type of anesthesia. Post debridement, dressing can be cleaning with Vashe wound cleanser and then utilizing a Hydrofera Blue foam. You may re-consult us after the patient has been surgically debrided. Multiple consults are required, including general surgery for wound debridement, infectious disease to give guidelines for the treatment of the primary peritonitis, and consideration for removal of peritoneal catheter. Thank you for this consult. DAMARIS
[2020-06-25 07:48] LABS: CALCIUM LEVEL 6.7 MG/DL (8.8-10.2); CREATININE FOR GFR 5.78 MG/DL (0.55-1.30); GLOMERULAR FILTRATION RATE 7.5 (>39); POTASSIUM SERUM 2.8 MEQ/L (3.5-5.1); TROPONIN I 0.08 NG/ML (< 0.10)
[2020-06-25 08:00] VITALS: BP 122/69
[2020-06-25] MEDS ORDERED: POTASSIUM CHLORIDE 10 MEQ SR TABLET PO ONE (08:15)
[2020-06-25 09:03] LABS: SOURCE, BODY FLUID PERITONEAL DIALYSATE
[2020-06-25 09:04] LABS: APPEARANCE, BODY FLUID HAZY (CLEAR); PERITONEAL DIALYSATE FL COLOR COLORLESS (COLORLESS)
[2020-06-25] MEDS: KCL 10MEQ/100ML SWI (KRUN) 10 MEQ in IV 1 EA IV SCH ×4 (09:49→13:30)
[2020-06-25] MEDS: CALCIUM/VITAMIN D 500 MG TAB PO SCH (09:51)
[2020-06-25] MEDS: ASPIRIN 325 MG TAB PO SCH (09:51)
[2020-06-25] MEDS: FERROUS SULFATE 325MG TAB PO SCH (09:51)
[2020-06-25] MEDS: HEPARIN SOD (PORCINE) 5000UNITS/ML 1ML VIAL/SYRINGE SC SCH ×2 (09:51→22:21)
[2020-06-25] MEDS: VANICREAM MOISTURIZING SKIN CREAM 113GM TUBE TOP SCH ×2 (09:51→22:22)
[2020-06-25] MEDS: POTASSIUM CHLORIDE 10 MEQ SR TABLET PO SCH (10:29)
[2020-06-25 12:00] VITALS: BP 127/66
--- NOTE | 2020-06-25 14:08 | IPNPDOC ---
Text Note Date of Service The patient was seen on 06/25/20. NOTE Subjective: Patient seen and examined this morning at bedside. She denies being in any pain. She denies abdominal pain. She continues to be confused but many answers such as month, are appropriate. Nurse tells me there is no overnight events. Objective: Constitutional: Awake and alert, in no apparent distress. Disheveled. Poor hygiene. ENT: Mucosa is dry Respiratory: Lungs mild crackles bilaterally. No respiratory distress. No use of accessory muscles. Cardiovascular: RRR S1 and S2 are normal Gastrointestinal: Abdomen is soft, non distended, non tender, BS present. No rebound tenderness. Musculoskeletal: 1+ LE edema. Neurologic: Not cooperating with exam to assess but no obvious focal neurologic deficits Mental Status: A&O x1, normal affect Skin: b/l LE chronic venous stasis changes. Unstagable ulcers on buttocks, sacrum and left upper leg present on admission. Assessment/plan: 79-year-old female past medical history of ESRD on peritoneal dialysis, insulin- dependent diabetes mellitus, hypertension, brought in the ED by EMS after being called for weakness at her residence. Found to have peritonitis as well as UTI and CAP. Patient was in a state of dishevelment and poor hygeine on arrival. # Peritonitis: IP vanc and gentamycin per nephron who was consulted. WBC peritoneal fluid 8949 on admission -> 4193-> 343. # ESRD: on PD. Neprho consulted Dr mckeon. # CAP and UTI: started on Zosn switched to ceftriaxone 06/25. UCx GBS, BCx negative. Leukocytosis resolved. # Mild Rabdo: Improved with IVFs. CPK downtrended. # IDDM: Levemir. ISS. Frequent accu-checks. Hypoglycemic precuations. # Disheveled, poor hygeine, multiple wounds: Not caring well for herself. advanced wound care consult Dr Mann recommends surgery for bedridment. Consulted Dr Stewart to evaluate the multiple ulcers, recommending GI eval first for diarrhea. Juarez. Rectal tube. Dietitian consult. # Diarrhea: rectal tube in place. Consulted GI. # Left knee pain: Left knee and hip xray negative for fracture. Not complaining of pain anymore. # Suspect undiagnosed dementia: quiet time, frequent reorientation, at risk of sundowning. IM Haldol as needed for severe agitation. Obtain b12/folate/hiv/ammonia # Hyponatremia: Improved. NS. Trend BMP. # Hypokalemia: replace. Monitor. # DVT proph: heparin A Nathanael Hospitalist VS,Ar, I+O VS, Ar, I+O Laboratory Tests 06/25/20 06:48 Vital Signs Date Time Temp Pulse Resp B/P (MAP) Pulse Ox O2 Delivery O2 Flow Rate FiO2 06/25/20 12:00 95.9 93 20 127/66 (86) 96 Room Air I&O- Last 24 Hours up to 6 AM 06/25/20 06:00 Intake Total 50860 ml Output Total 68199 ml Balance -570 ml KARL COLLIER MD Jun 25, 2020 14:08
[2020-06-25] MEDS: cefTRIAXone SOD 1 GM in D5W MINI-BAG PLUS 50 ML IV SCH (14:16)
[2020-06-25 16:00] VITALS: BP 115/80
[2020-06-25 16:40] LABS: FOLATE 4.2 NG/ML (>5.4); HIV 1&2 SCREEN CENTAUR NEGATIVE (NEGATIVE); VITAMIN B12 LEVEL 679 PG/ML (247-911)
[2020-06-25 20:00] VITALS: BP 104/58
[2020-06-25] MEDS: GENTAMICIN SULF 80MG/2ML VIAL IP SCH (22:22)
[2020-06-25] MEDS: NS 1,000 ML IV SCH (23:50)
[2020-06-26] VITALS: BP 110/48
[2020-06-26 04:00] VITALS: BP 118/62
[2020-06-26 04:43] LABS: BASO % 0.1 % (0.0-1.0); EOS # 0.1 10^3/uL (0.0-0.5); EOS % 1.4 % (0.0-3.0); HEMATOCRIT 30.1 % (36.0-47.0); HEMOGLOBIN 10.4 g/dl (12.0-15.5); LYMPH # 0.8 10^3/uL (1.5-5.0); LYMPH % 8.5 % (24.0-44.0); MEAN CORPUSCULAR HEMOGLOBIN 29.6 pg (27.0-33.0); MEAN CORPUSCULAR HGB CONC 34.6 g/dl (32.0-36.5); MEAN CORPUSCULAR VOLUME 85.8 fl (80.0-96.0); MONO # 0.3 10^3/uL (0.0-0.8); MONO % 2.5 % (0.0-5.0); NEUTROPHILS # 8.5 10^3/uL (1.5-8.5); NEUTROPHILS % 85.8 % (36.0-66.0); PLATELET COUNT, AUTOMATED 162 10^3/uL (150-450); RED BLOOD COUNT 3.51 10^6/uL (4.00-5.40); WHITE BLOOD COUNT 9.9 10^3/uL (4.0-10.0)
[2020-06-26 05:14] LABS: CREATININE FOR GFR 5.26 MG/DL (0.55-1.30); GLOMERULAR FILTRATION RATE 8.4 (>39); POTASSIUM SERUM 3.7 MEQ/L (3.5-5.1)
[2020-06-26 06:43] LABS: APPEARANCE, BODY FLUID CLEAR (CLEAR); PERITONEAL DIALYSATE FL COLOR COLORLESS (COLORLESS); SOURCE, BODY FLUID PERITONEAL DIALYSATE
[2020-06-26 07:21] VITALS: BP 111/59
--- NOTE | 2020-06-26 08:56 | IPNPDOC ---
Text Note Date of Service The patient was seen on 06/26/20. NOTE Subjective: Patient seen and examined this morning at bedside. She denies being in any pain. She denies abdominal pain. She continues to be confused but many answers such as month, are appropriate. Her confused waxes and wanes. Nurse tells me there is no overnight events. Objective: Constitutional: Awake and alert, in no apparent distress. Disheveled. Poor hygiene. ENT: Mucosa is dry Respiratory: Lungs mild crackles bilaterally. No respiratory distress. No use of accessory muscles. Cardiovascular: RRR S1 and S2 are normal Gastrointestinal: Abdomen is soft, non distended, non tender, BS present. No rebound tenderness. Musculoskeletal: 1+ LE edema. Neurologic: Not cooperating with exam to assess but no obvious focal neurologic deficits Mental Status: A&O x1, normal affect Skin: b/l LE chronic venous stasis changes. Unstagable ulcers on buttocks, sacrum and left upper leg present on admission. Assessment/plan: 79-year-old female past medical history of ESRD on peritoneal dialysis, insulin- dependent diabetes mellitus, hypertension, brought in the ED by EMS after being called for weakness at her residence. Found to have peritonitis as well as UTI and CAP. Patient was in a state of dishevelment and poor hygeine on arrival. # Peritonitis: IP vanc and gentamycin per nephron who was consulted. WBC peritoneal fluid 8949 on admission -> 4193-> 343->95. Will need to complete 2 weeks total IP ABx. # ESRD: on PD. [place] consulted Dr mckeon. # Disheveled, poor hygeine, multiple wounds: Not caring well for herself. advan fco wound care consult Dr Mann recommends surgery for bedridment. Consulted Dr Stewart to evaluate the multiple ulcers, recommending GI eval first for diarrhea. Juarez. Rectal tube. Dietitian consult. # Diarrhea: rectal tube in place. Consulted GI. # CAP and UTI: started on Zosn switched to ceftriaxone 06/25. UCx GBS, BCx negative. Leukocytosis resolved. # Mild Rabdo: Improved with IVFs. CPK downtrended. # IDDM: Episode of hypoglycemia. Hold levemir. ISS. Frequent accu-checks. Hypoglycemic precuations. # Left knee pain: Left knee and hip xray negative for fracture. Not complaining of pain anymore. # Suspect undiagnosed dementia: quiet time, frequent reorientation, at risk of sundowning. IM Haldol as needed for severe agitation. Obtain b12/folate/hiv/ammonia # Hyponatremia: Resolved with NS. # Hypokalemia: Corrected. Monitor. # DVT proph: heparin A Nathanael Hospitalist VS,Ar, I+O VS, Ar, I+O Laboratory Tests 06/26/20 04:29 Vital Signs Date Time Temp Pulse Resp B/P (MAP) Pulse Ox O2 Delivery O2 Flow Rate FiO2 06/26/20 07:21 98.2 106 22 111/59 (76) 100 Room Air I&O- Last 24 Hours up to 6 AM 06/26/20 06:00 Intake Total 12573 ml Output Total 07716 ml Balance -622 ml KARL COLLIER MD Jun 26, 2020 08:56
[2020-06-26] MEDS: ASPIRIN 325 MG TAB PO SCH ×2 (09:08→13:02)
[2020-06-26] MEDS: CALCIUM/VITAMIN D 500 MG TAB PO SCH ×2 (09:08→13:03)
[2020-06-26] MEDS: HEPARIN SOD (PORCINE) 5000UNITS/ML 1ML VIAL/SYRINGE SC SCH ×2 (09:08→20:38)
[2020-06-26] MEDS: HumaLOG INSULIN (NovoLOG) PER UNIT SC SCH ×4 (09:08→20:39)
[2020-06-26] MEDS: POTASSIUM CHLORIDE 10 MEQ SR TABLET PO SCH ×2 (09:08→13:02)
[2020-06-26] MEDS: FERROUS SULFATE 325MG TAB PO SCH (09:08)
[2020-06-26] MEDS: VANICREAM MOISTURIZING SKIN CREAM 113GM TUBE TOP SCH ×2 (09:09→20:40)
[2020-06-26 12:00] VITALS: BP 90/54
[2020-06-26] MEDS: cefTRIAXone SOD 1 GM in D5W MINI-BAG PLUS 50 ML IV SCH (13:23)
[2020-06-26 15:24] VITALS: BP 100/56
[2020-06-26 15:57] LABS: CLOSTRIDIUM DIFFICILE PCR NEGATIVE (NEGATIVE)
[2020-06-26 20:00] VITALS: BP 112/46
[2020-06-26] MEDS: NS 1,000 ML IV SCH (20:37)
[2020-06-26] MEDS: GENTAMICIN SULF 80MG/2ML VIAL IP SCH (20:37)
[2020-06-27] VITALS (7 sets, daily range): BP systolic 108–138; BP diastolic 52–83
[2020-06-27 05:09] LABS: BASO % 0.2 % (0.0-1.0); EOS # 0.2 10^3/uL (0.0-0.5); EOS % 2.7 % (0.0-3.0); HEMATOCRIT 29.3 % (36.0-47.0); HEMOGLOBIN 9.8 g/dl (12.0-15.5); LYMPH % 11.5 % (24.0-44.0); MEAN CORPUSCULAR HEMOGLOBIN 29.3 pg (27.0-33.0); MEAN CORPUSCULAR HGB CONC 33.4 g/dl (32.0-36.5); MEAN CORPUSCULAR VOLUME 87.5 fl (80.0-96.0); MONO # 0.3 10^3/uL (0.0-0.8); MONO % 3.8 % (0.0-5.0); NEUTROPHILS # 7.2 10^3/uL (1.5-8.5); NEUTROPHILS % 79.4 % (36.0-66.0); PLATELET COUNT, AUTOMATED 142 10^3/uL (150-450); RED BLOOD COUNT 3.35 10^6/uL (4.00-5.40)
[2020-06-27 05:13] LABS: CALCIUM LEVEL 6.5 MG/DL (8.8-10.2); CREATININE FOR GFR 4.66 MG/DL (0.55-1.30); GLOMERULAR FILTRATION RATE 9.7 (>39)
[2020-06-27] MEDS: NS 1,000 ML IV SCH (06:33)
[2020-06-27 07:17] LABS: APPEARANCE, BODY FLUID CLEAR (CLEAR); PERITONEAL DIALYSATE FL COLOR COLORLESS (COLORLESS); SOURCE, BODY FLUID PERITONEAL DIALYSATE
[2020-06-27] MEDS ORDERED: POTASSIUM CHLORIDE 10 MEQ SR TABLET PO ONE (08:00)
[2020-06-27 08:43] LABS: MAGNESIUM LEVEL 1.3 MG/DL (1.8-2.4)
[2020-06-27] MEDS: ASPIRIN 325 MG TAB PO SCH (09:00)
[2020-06-27] MEDS: CALCIUM/VITAMIN D 500 MG TAB PO SCH (09:00)
[2020-06-27] MEDS: VANICREAM MOISTURIZING SKIN CREAM 113GM TUBE TOP SCH ×2 (09:00→22:01)
[2020-06-27] MEDS: HEPARIN SOD (PORCINE) 5000UNITS/ML 1ML VIAL/SYRINGE SC SCH ×2 (09:03→21:57)
[2020-06-27] MEDS: KCL 10MEQ/100ML SWI (KRUN) 10 MEQ in IV 1 EA IV SCH ×4 (09:03→15:22)
[2020-06-27] MEDS: HumaLOG INSULIN (NovoLOG) PER UNIT SC SCH ×4 (09:04→21:00)
--- NOTE | 2020-06-27 11:57 | IPNPDOC ---
Text Note Date of Service The patient was seen on 06/27/20. NOTE Subjective: Patient seen and examined this morning at bedside. She denies being in any pain. She denies abdominal pain. She continues to be confused she mixed her medicines with some coke today and tried to drink them. Her confused waxes and wanes. Nurse tells me there is no overnight events. Objective: Constitutional: Awake and alert, in no apparent distress. Disheveled. Poor hygiene. ENT: Mucosa is dry Respiratory: Lungs mild crackles bilaterally. No respiratory distress. No use of accessory muscles. Cardiovascular: RRR S1 and S2 are normal Gastrointestinal: Abdomen is soft, non distended, non tender, BS present. No rebound tenderness. Musculoskeletal: 1+ LE edema. Neurologic: Not cooperating with exam to assess but no obvious focal neurologic deficits Mental Status: A&O x1, normal affect Skin: b/l LE chronic venous stasis changes. Unstagable ulcers on buttocks, sacrum and left upper leg present on admission. Assessment/plan: 79-year-old female past medical history of ESRD on peritoneal dialysis, insulin- dependent diabetes mellitus, hypertension, brought in the ED by EMS after being called for weakness at her residence. Found to have peritonitis as well as UTI and CAP. Patient was in a state of dishevelment and poor hygeine on arrival. # Peritonitis: IP vanc and gentamycin per nephron who was consulted. WBC perito vera fluid 8949 on admission -> 4193-> 343->95->13. Will need to complete 2 weeks total IP ABx. # ESRD: on PD. Neprho consulted Dr mckeon. # Disheveled, poor hygeine, multiple wounds: Not caring well for herself. advanced wound care consult Dr Mann recommends surgery for bedridment. Consulted Dr Stewart to evaluate the multiple ulcers, recommending GI eval first for diarrhea. Juarez. Rectal tube. Dietitian consult. # Diarrhea: rectal tube in place. Consulted GI, appreciate recs. GI panel pending. C diff PCR negative. # CAP and UTI: started on Zosn switched to ceftriaxone 06/25. UCx GBS, BCx negative. Leukocytosis resolved. # Mild Rabdo: Improved with IVFs. CPK downtrended. # IDDM: Episode of hypoglycemia. Hold levemir. ISS. Frequent accu-checks. Hypoglycemic precuations. # Left knee pain: Left knee and hip xray negative for fracture. Not complaining of pain anymore. # Suspect undiagnosed dementia: quiet time, frequent reorientation, at risk of owning. IM Haldol as needed for severe agitation. Obtain b12/folate/hiv/ammonia # Hyponatremia: Resolved with NS. # Hypokalemia: Corrected. Monitor. # DVT proph: heparin A Nathanael Hospitalist VS,Ar, I+O VSAr I+O Laboratory Tests 06/27/20 04:26 Vital Signs Date Time Temp Pulse Resp B/P (MAP) Pulse Ox O2 Delivery O2 Flow Rate FiO2 06/27/20 08:00 97.5 82 20 138/62 (87) 95 Room Air I&O- Last 24 Hours up to 6 AM 06/27/20 06:00 Intake Total 74572 ml Output Total 36226 ml Balance -1365 ml KARL COLLIER MD Jun 27, 2020 11:57
[2020-06-27] MEDS ORDERED: AZITHROMYCIN INJ 500 MG, VIAL MATE ADAPTER 1 EACH in D5W 250 ML IV SCH (12:00)
[2020-06-27] MEDS: cefTRIAXone SOD 1 GM in D5W MINI-BAG PLUS 50 ML IV SCH (14:30)
[2020-06-27] MEDS: KCL 20MEQ in NS 1000ML 1,000 ML IV SCH (15:22)
[2020-06-27] MEDS: MAG SULF 1GM/100ML (MAG RUN) 1 GM in IV 1 EA IV SCH ×3 (17:17→23:54)
--- NOTE | 2020-06-27 19:48 | CR.PDOC ---
General Date of Consultation: Jun 26, 2020 Referring Provider: KARL COLLIER MD Attending Physician: YONAS GLASGOW MD Consultation Referring physician / PCP : Dr. Collier Reason for consult: Diarrhea. HPI: 79-year-old female patient with HTN, DM type 2 on insulin, ESRD on peritoneal dialysis, secondary hyperparathyroidism of renal origin, anemia of chronic renal failure, peripheral vascular disease, diastolic congestive heart failure, was admitted to hospital for AMS. Patient was noted to have severe sepsis, hypotension and work up showed secondary peritonitis (Peritoneal dialysis catheter). Patient has been treated with IV antibiotics and Intraperitoneal antibiotics with good response. Patient also noted to have several decubitus ulcers in the sacral and perineal area and being evaluated by surgery. Patient was placed on rectal tube for diarrhea (liquid brown stool noted in rectal tube). GI was consulted for diarrhea management prior to decubitus ulcer debridement. Patient is examined bedside and she is not able to provide any relevant history. She denies any abdominal pain in specific questioning but does notice mild tenderness on exam at the peritoneal dialysis catheter site. Review of Systems: Limited due to patients mental status. GI: as stated above Home medications: reviewed. Currently not on oral laxatives or No Plavix and No anticoagulants Medical h/o: As above. Surgical h/o: Peritoneal dialysis catheter placement in 2014. Social h/o: H/o smoking many years ago as per EMR. Family h/o of GI cancers - None Prior Endoscopies: None in [facility]. Prior GI evaluation: None in [facility] Exam: Vitals: reviewed General: Alert and oriented x 1, not in acute distress HEENT: Mild conjunctival pallor, no icterus., NO cervical lymphadenopathy. Chest: symmetric with bilateral air entry, CVS: S1, S2 heard, Abdomen: non-distended, soft, noted peritoneal dialysis catheter on the left side, non-tender, no rigidity or guarding, no palpable masses, normal bowel so unds heard. Rectal exam: Patient is on rectal tube. 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 Moves all extremities Skin: no rash. Labs: reviewed. Negative c. difficile but stool panel is pending. Imaging: reviewed. NO abdominal imaging. Impression: -- Diarrhea, unclear duration, with clostridium difficile negative and being treated with antibiotics for secondary peritonitis, no gross blood in stools. DDxRule out infectious vs malabsorptive diarrhea vs overflow diarrhea. Recommendations: -- Management of secondary peritonitis with antibiotics as per primary team and nephrology.. -- Resume oral diet as tolerated. Consider low residue diet. -- Follow the stool panel to rule out infectious diarrhea. -- Will also order stool lactoferrin, Calprotectin levels. -- Also obtain portable abdominal Xray when the peritoneal dialysate is least. -- If above work up is negative to consider Anti diarrhea medications prefer cholestyramine 4 gm daily. -- Further work up based on the above. -- Recommendations communicated to patient and primary team. Vital Signs/I&O Vital Signs Date Time Temp Pulse Resp B/P (MAP) Pulse Ox O2 Delivery O2 Flow Rate FiO2 06/27/20 16:00 97.4 99 17 133/68 (89) 96 Room Air I&O- Last 24 Hours up to 6 AM 06/27/20 05:59 Intake Total 07664 ml Output Total 46811 ml Balance -1165 ml Laboratory Data Labs 24H Laboratory Tests 2 06/26/20 20:35: Bedside Glucose (Misc Panel) 118H 06/27/20 04:26: Immature Granulocyte % (Auto) 2.4, Neutrophils (%) (Auto) 79.4H, Lymphocytes (%) (Auto) 11.5L, Monocytes (%) (Auto) 3.8, Eosinophils (%) (Auto) 2.7, Basophils (%) (Auto) 0.2, Neutrophils # (Auto) 7.2, Lymphocytes # (Auto) 1.0L, Monocytes # (Auto) 0.3, Eosinophils # (Auto) 0.2, Basophils # (Auto) 0.0, Nucleated Red Blood Cells % (auto) 0.0, Anion Gap 9, Glomerular Filtration Rate 9.7L, Calcium Level 6.5L, Magnesium Level 1.3L 06/27/20 06:36: Body Fluid Source PERITONEAL DIALYSATE, Body Fluid WBC (Auto) 13H, Body Fluid RBC (Auto) < 2, Body Fluid Mononuclear Cells % Auto 46.2H, Fluid Polymorphonuclear Cell % Auto 53.8H, Peritoneal Fluid Color COLORLESS, Peritoneal Fluid Appearance CLEAR 06/27/20 12:19: Bedside Glucose (Misc Panel) 109 06/27/20 17:19: Bedside Glucose (Misc Panel) 146H CBC/BMP Laboratory Tests 06/27/20 04:26 Microbiology Microbiology 06/26/20 Campylobacter (PCR), Received Pending 06/26/20 Clostridium difficile Toxin A&B PCR, Received Pending 06/26/20 Plesiomonas shigelloides (PCR), Received Pending 06/26/20 Salmonella (PCR)(SHAYLEE), Received Pending 06/26/20 Vibrio Species (PCR), Received Pending 06/26/20 Vibrio Cholerae (PCR), Received Pending 06/26/20 Yersinia enterocolitica (PCR), Received Pending 06/26/20 Enteroaggregative E. coli (PCR), Received Pending 06/26/20 Enteropathogenic E. coli (PCR), Received Pending 06/26/20 Enterotoxigenic E. coli (PCR), Received Pending 06/26/20 E. coli Shiga-like Toxin (PCR), Received Pending 06/26/20 Escherichia coli 0157 (PCR), Received Pending 06/26/20 Enteroinvasive E. coli/Shigella PCR, Received Pending 06/26/20 Cryptosporidium (PCR), Received Pending 06/26/20 Cyclospora cayetanensis (PCR), Received Pending 06/26/20 Entamoeba histolytica (PCR), Received Pending 06/26/20 Giardia lamblia (PCR), Received Pending 06/26/20 Adenovirus Type F 40/41 (PCR), Received Pending 06/26/20 Astrovirus (PCR), Received Pending 06/26/20 Norovirus GI/GII (PCR), Received Pending 06/26/20 Rotavirus A (PCR), Received Pending 06/26/20 Sapovirus I/II/IV/V (PCR), Received Pending 06/23/20 Fungal Smear, Received Pending 06/23/20 Fungal Culture, Received Pending 06/23/20 Body Fluid Culture - Final, Complete Proteus Mirabilis Klebsiella Pneumoniae Strep Agalactiae Group B 06/23/20 Urine Culture - Final, Complete Strep Agalactiae Group B 06/23/20 Blood Culture - Preliminary, Resulted No Growth after 72 hours. All specime... 06/23/20 Blood Culture - Preliminary, Resulted No Growth after 72 hours. All specime... 06/23/20 Respiratory Virus Panel (PCR) (SHAYLEE) - Final, Complete Allergies Coded Allergies: atorvastatin (Verified Allergy, Intermediate, swelling, 03/25/20) levofloxacin (Verified Allergy, Intermediate, swelling, 03/25/20) magnesium oxide (Verified Allergy, Intermediate, swelling, 03/25/20) povidone-iodine (Verified Allergy, Intermediate, rash, 03/25/20) acetaminophen (Verified Adverse Reaction, Intermediate, increased heartrate, 03/25/20) Home Medications Scheduled Aspirin (Aspirin) 325 Mg Tablet, 325 MG PO DAILY, (Reported) Bumetanide (Bumetanide) 2 Mg Tablet, 2 MG PO BID, (Reported) Calcium Carbonate/Vitamin D3 (Calcium 600+D Softgel) 1 Each Capsule, 1 CAP PO DAILY, (Reported) Ergocalciferol (Vitamin D2) (Vitamin D2) 50,000 Units Cap, 50,000 UNITS PO QWEEK, (Reported) Ferrous Sulfate (Ferrous Sulfate) 325 Mg Tablet, 325 MG PO DAILY, (Reported) Gentamicin Sulfate (Gentamicin Sulfate) 15 Gm Oint...g., 1 DOSE TOP ASDIRECTED, (Reported) 0.1% - APPLY TO PERITENEAL DIALYSIS CATHETER Insulin Glargine,Hum.rec.anlog (Lantus Solostar) 100 Unit/1 Ml Insuln.pen, 10 UNITS SC DAILY, (Reported) Lecithin (Lecithin) 518 Mg Capsule, 518 MG PO DAILY, (Reported) Magnesium (Magnesium) 250 Mg Tablet, 500 MG PO DAILY, (Reported) Potassium Chloride (Potassium Chloride) 10 Meq Tab.er.prt, 20 MEQ PO DAILY, (Reported) Red Yeast Rice (Red Yeast Rice) 600 Mg Capsule, 1,200 MG PO DAILY, (Reported) Saccharomyces Boulardii (Florastor) 250 Mg Capsule, 250 MG PO BID, (Reported) Miscellaneous Medications [Patient Comment] , (Reported) MED LIST OBTAINED FROM DIALYSIS, UNABLE TO VERIFY WITH PATIENT YONAS GLASGOW MD Jun 27, 2020 19:48
[2020-06-27] MEDS: GENTAMICIN SULF 80MG/2ML VIAL IP SCH (21:58)
[2020-06-28] VITALS: BP 119/53
[2020-06-28 04:00] VITALS: BP 144/60
[2020-06-28 04:38] LABS: BASO % 0.3 % (0.0-1.0); EOS # 0.2 10^3/uL (0.0-0.5); EOS % 2.9 % (0.0-3.0); HEMATOCRIT 31.2 % (36.0-47.0); HEMOGLOBIN 10.1 g/dl (12.0-15.5); LYMPH # 0.8 10^3/uL (1.5-5.0); LYMPH % 10.3 % (24.0-44.0); MEAN CORPUSCULAR HEMOGLOBIN 28.4 pg (27.0-33.0); MEAN CORPUSCULAR HGB CONC 32.4 g/dl (32.0-36.5); MEAN CORPUSCULAR VOLUME 87.6 fl (80.0-96.0); MONO # 0.4 10^3/uL (0.0-0.8); NEUTROPHILS # 6.4 10^3/uL (1.5-8.5); NEUTROPHILS % 79.5 % (36.0-66.0); PLATELET COUNT, AUTOMATED 140 10^3/uL (150-450); RED BLOOD COUNT 3.56 10^6/uL (4.00-5.40)
[2020-06-28 04:48] LABS: CREATININE FOR GFR 4.27 MG/DL (0.55-1.30); GLOMERULAR FILTRATION RATE 10.7 (>39); POTASSIUM SERUM 3.4 MEQ/L (3.5-5.1)
[2020-06-28 07:55] VITALS: BP 166/86
[2020-06-28] MEDS: HumaLOG INSULIN (NovoLOG) PER UNIT SC SCH ×4 (08:06→21:00)
[2020-06-28] MEDS: ASPIRIN 325 MG TAB PO SCH (08:07)
[2020-06-28] MEDS: HEPARIN SOD (PORCINE) 5000UNITS/ML 1ML VIAL/SYRINGE SC SCH ×3 (08:07→22:07)
[2020-06-28] MEDS: CALCIUM/VITAMIN D 500 MG TAB PO SCH (08:07)
[2020-06-28] MEDS: VANICREAM MOISTURIZING SKIN CREAM 113GM TUBE TOP SCH ×2 (08:07→22:05)
--- NOTE | 2020-06-28 08:26 | REP ---
INDICATION: Rule out bowel obstruction or constipation COMPARISON: None. TECHNIQUE: Two portable supine views of the abdomen and pelvis. FINDINGS: Examination is limited by portable technique. Bowel gas pattern is grossly unremarkable and without obvious obstruction or perforation. Ascites is suggested along with dialysis catheter overlying the lower abdomen/pelvis. IMPRESSION: Limited examination. Nonspecific bowel gas pattern suggested. <Electronically signed by David Finn > 06/28/20 [id number]
--- NOTE | 2020-06-28 08:38 | IPN ---
DATE: 06/25/2020 SUBJECTIVE: Terrie was seen and examined this morning at the bedside. She was able to tell me her name, date of , the month, the holiday coming up and the correct year. However when I asked her my name, she insisted that I was Dr. Willoughby. Nursing staff reports that she has had minimal oral intake. Her peritoneal fluid analysis shows nicely decreasing WBC. Her actual external catheter was very poorly kept and filthy. The patient is having significant diarrhea which is complicating the ulcers on her buttocks and sacrum. PHYSICAL EXAMINATION: VITAL SIGNS: Temperature 98.9, pulse 93, respiratory rate 20, blood pressure 122/69, saturating 99% on room air. Review of I.s and O.s yesterday shows net negative 700. Weight on the bed scale today is not recorded. GENERAL APPEARANCE: The patient is seen lying in bed. Head of the bed elevated. Elderly female, disheveled. Poor hygiene. Very hard of hearing. In no apparent distress. Her tongue and mouth are very dry. Makes eye contact. NECK: Supple. Jugular veins do not look elevated today. HEART: Regular, S1, S2. RESPIRATORY: There is scattered rhonchus and there is a dry cough noted. There is no accessory muscle use or tachypnea. She is comfortable on room air. ABDOMEN: Soft. There is PD fluid in place. The PD catheter exit site has some local erythema but there is no discharge noted. EXTREMITIES: There is 1+ leg edema. It is decreased from prior. Legs show right transmetatarsal amputation and 1+ edema bilaterally of the lower extremities. Her sacral and buttock wounds were not examined. NEUROLOGICAL: She is oriented to person and place and able to tell me the month and the year, but she insists that I am Dr. Willoughby. LABORATORY STUDIES: Sodium 135, potassium 2.8, bicarbonate 29, hemoglobin 9.7, platelets 160. Peritoneal fluid cell count shows WBC down to 343. Her PD fluid culture grew proteus mirabilis and strep agalactiae group B. Her urine culture also grew group B strep. IMAGING: Hip x-ray done yesterday showed no growth fractures. There are degenerative changes. MEDICATIONS: She is on: * Ceftriaxone one gram IV daily. * She is receiving potassium supplementation, both IV and orally. * She is on normal saline at 30 mL an hour. * She continues on Aspirin. * Calcium tablet. * Iron tablet. * Heparin 5,000 units subcutaneously q. 12 hourly. * Insulin. * She is written for Gentamicin 40 mg with her overnight PD exchanges to be given intraperitoneally. The remainder of medications are unchanged from prior. PROBLEMS: 1. Peritonitis in this patient with peritoneal dialysis. Her PD fluid culture resulted with proteus and group B strep. It is dual microbial infection. Her peritoneal fluid cell count is nicely downtrending. She is receiving intraperitoneal Gentamicin with her overnight exchanges. Continue daily cell count until it is less than 100 WBCs. Compliance and hygiene are a major concern, and the patient is less and less able to care for herself at home and is unlikely to be a suitable candidate for peritoneal dialysis as an outpatient going forward as evidenced by her multiple wounds and state of dishevelment. We will reevaluate this as she progresses during the course of this admission. 3. End-stage renal disease on peritoneal dialysis - continue present prescription. Her oral intake has been minimal. Her leg edema has improved. I am making some of her exchanges 1.5% dianeal now. 4. Group B strep urinary tract infection she is receiving IV Ceftriaxone. The same organism was also found in her peritoneal fluid. 5. Diastolic congestive heart failure she was moderately hypervolemic when she first arrived. She was most likely not performing peritoneal dialysis at home while she was ill. Her volume status has now improved. Her peritoneal dialysis prescription has been adjusted. She is receiving 1.5 and 2.5% dianeal exchanges. Her oral intake is still very minimal and she is receiving normal saline at 30 mL an hour. Her volume status is assessed daily. She is not receiving her home Bumex. 6. Hypervolemic hyponatremia it has improved with the peritoneal dialysis prescription and also with normal saline. 7. Hypokalemia she is having minimal oral intake. She is total body potassium deplete. She is receiving both oral and intravenous supplementation. MTDD
--- NOTE | 2020-06-28 08:41 | IPN ---
DATE: 06/26/2020 SUBJECTIVE: The patient is seen this morning at her bedside. She is quite confused, disoriented and agitated. She is unable to cooperate for any questions or exams. She is being treated for diarrhea and has a rectal tube in place. She continues to have loose stools. Peritoneal dialysis is being performed and she is also being treated for peritonitis. She also has ischemic ulcers on her extremities and back. PHYSICAL EXAMINATION: VITAL SIGNS: Temperature is 97.3 degrees Fahrenheit, heart rate 98 per minute, respiratory rate 22 per minute, blood pressure 90/54 mm of mercury and oxygen saturation 95% on room air. HEENT: Head is atraumatic. She is edentulous. NECK: Supple and without JVD or thyroid enlargement. HEART: Tachycardic. LUNGS: Clear to auscultation. ABDOMEN: Mildly tender and bowel sounds are present. Peritoneal dialysis catheter is intact. EXTREMITIES: No clubbing or cyanosis. NEUROLOGICAL: She is quite agitated, confused and unable to answer any questions. LABORATORY STUDIES: Todays labs show a WBC count of 9.9, hemoglobin 10.4 and hematocrit 30.1. Platelets are 162. Sodium 137, potassium 3.7, CO2 30, BUN 49 and creatinine 5.26. Glucose 135 and potassium 7.0. PROBLEMS: 1. End-stage renal disease - The patient remains on peritoneal dialysis and seems to be well dialyzed. We will continue with the current prescription. 2. Peritonitis Her peritonitis seems to be improving. Todays peritoneal dialysis cell count is down to 95. We will continue with intraperitoneal Gentamicin and intravenous Ceftriaxone. 3. Altered mentation she is quite confused and disoriented. She has not been eating at all and refusing medications. I feel that this is most likely toxic and metabolic encephalopathy and likely to improve. 4. Diarrhea her stool for C-difficile is pending at the present. We will wait for the results. 5. Anemia at the present her anemia is stable and there is no need for any urgent intervention. 6. Decubitus ulcers waiting for a surgical evaluation for possible debridement. 7. Protein calorie malnutrition The patient is refusing all intake. She is likely to benefit from parenteral nutrition. I have discussed with the Hospitalist and advised a central line placement for TPN. MTDD
--- NOTE | 2020-06-28 08:43 | IPN ---
DATE: 06/27/2020 SUBJECTIVE: Mrs. Baca was seen this morning at her bedside. She is quite hard of hearing. She is able to answer some questions though with difficulty. She seems to be less combative and less confused today compared to yesterday. Nursing staff reports that she continues to have loose stools and she has a rectal tube in place. Her peritoneal dialysis is working and peritoneal fluid has been clear. Oral intake remains poor and the patient is refusing to take any medications. She did not eat much breakfast this morning. PHYSICAL EXAMINATION: VITAL SIGNS: Temperature 97.5 degrees Fahrenheit, heart rate 82 per minute, respiratory rate 20 per minute, blood pressure 138/62 mm of mercury and oxygen saturation is 95% on room air. HEENT: Head is atraumatic. She is edentulous and without any oral thrush or ulcers. NECK: Supple and without JVD or thyroid enlargement. HEART: Regular. LUNGS: Clear to auscultation. ABDOMEN: Soft and non tenderness. Bowel sounds are normal. Peritoneal dialysis catheter is intact. EXTREMITIES: No cyanosis or clubbing. NEUROLOGICALLY: She is slightly better compared to yesterday but still not back to her baseline mentation. LABORATORY STUDIES: Todays labs show a WBC count of 9.0, hemoglobin 9.8 and hematocrit 29.3, platelets 142. Sodium 140, potassium 3.0, CO2 28, BUN 40 and creatinine 4.66. Glucose 132 and potassium 6.5. Magnesium is 1.3. PROBLEMS: 1. End-stage renal disease - The patient remains on peritoneal dialysis and will continue with the current prescription. 2. Peritonitis her peritonitis seems to be improving and peritoneal dialysis white blood cell count today down to 13. We will continue with the current antibiotic therapy. 3. Hypokalemia this is related to poor oral intake and we are going to switch her IV fluid to normal saline with 20 mEq of potassium chloride. 4. Diarrhea she has tested for C-diff. Continue with IV fluid for now. Final results are still pending. 5. Hypomagnesemia we will replace her magnesium with intravenous magnesium sulfate and repeat her electrolytes. 6. Anemia her anemia has been stable and there is no need for urgent intervention. 7. Altered mentation most likely this is related to toxic and metabolic encephalopathy and we will continue to monitor closely. [facility]
--- NOTE | 2020-06-28 09:37 | IPNPDOC ---
Text Note Date of Service The patient was seen on 06/28/20. NOTE Subjective: Patient seen and examined this morning at bedside. She denies being in any pain. She denies abdominal pain. She continues to be confused. Nurse tells me there is no overnight events. Objective: Constitutional: Awake and alert, in no apparent distress. Disheveled. Poor hygiene. ENT: Mucosa is dry Respiratory: Lungs mild crackles bilaterally. No respiratory distress. No use of accessory muscles. Cardiovascular: RRR S1 and S2 are normal Gastrointestinal: Abdomen is soft, non distended, non tender, BS present. No rebound tenderness. Musculoskeletal: 1+ LE edema. Neurologic: Not cooperating with exam to assess but no obvious focal neurologic deficits Mental Status: A&O x1, normal affect Skin: b/l LE chronic venous stasis changes. Unstagable ulcers on buttocks, sacrum and left upper leg present on admission. Assessment/plan: 79-year-old female past medical history of ESRD on peritoneal dialysis, insulin- dependent diabetes mellitus, hypertension, brought in the ED by EMS after being called for weakness at her residence. Found to have peritonitis as well as UTI and CAP. Patient was in a state of dishevelment and poor hygiene on arrival. # Disheveled, poor hygiene, multiple wounds: Not caring well for herself. adva nced wound care consult Dr Mann recommends surgery for bedridment. Consulted Dr Stewart to evaluate the multiple ulcers, recommending GI eval first for diarrhea. Juarez. Rectal tube. Dietitian consult. Ordered PICC line 06/28 to start her on TPN given poor nutritional status which should help with wound healing. Nutrition consult for TPN. # Diarrhea: rectal tube in place. Consulted GI, appreciate recs. GI panel pending. C diff PCR negative. Dr Olmos recommends await GI panel, Fu lacto lily/calprotectin levels, abdo xray this am, if workup negative can try cholestyramine 4mg daily. # Peritonitis: IP vanc and gentamycin. Nephro on board. WBC peritoneal fluid 8949 on admission -> 4193-> 343->95->13. Will need to complete 2 weeks total IP ABx. # ESRD: on PD. Neprho consulted Dr mckeon. # CAP and UTI: started on Zosn switched to ceftriaxone 11/20. UCx GBS, BCx negative. Leukocytosis resolved. Can continue for 7-10 day total course. # Rabdo: Improved with IVFs. CPK downtrended. # IDDM: Episode of hypoglycemia. Hold levemir. ISS. Frequent accu-checks. Hypoglycemic precuations. # Left knee pain: Left knee and hip xray negative for fracture. Not complaining of pain anymore. # Suspect undiagnosed dementia: quiet time, frequent reorientation, at risk of ing. IM Haldol as needed for severe agitation. b12/folate/hiv/ammonia. Folate low. # Low folate: replace folate # Hyponatremia: Resolved with NS. # Hypokalemia: Corrected. Monitor. # DVT proph: heparin A Nathanael Hospitalist VSAr, I+O VSAr I+O Laboratory Tests 06/28/20 03:30 Vital Signs Date Time Temp Pulse Resp B/P (MAP) Pulse Ox O2 Delivery O2 Flow Rate FiO2 06/28/20 07:55 97.6 84 17 166/86 (112) 95 Room Air I&O- Last 24 Hours up to 6 AM 06/28/20 06:00 Intake Total 24888 ml Output Total 48890 ml Balance -2085 ml KARL COLLIER MD Jun 28, 2020 09:37
[2020-06-28] MEDS ORDERED: FOLIC ACID 1 MG TAB PO ONE (10:00)
[2020-06-28] MEDS: KCL 20MEQ in NS 1000ML 1,000 ML IV SCH (10:17)
[2020-06-28] MEDS: KCL 10MEQ/100ML SWI (KRUN) 10 MEQ in IV 1 EA IV SCH ×4 (10:18→13:52)
[2020-06-28] MEDS: POTASSIUM CHLORIDE 10 MEQ SR TABLET PO SCH (10:18)
[2020-06-28 11:01] LABS: APPEARANCE, BODY FLUID CLEAR (CLEAR); PERITONEAL DIALYSATE FL COLOR COLORLESS (COLORLESS); SOURCE, BODY FLUID PERITONEAL DIALYSATE
[2020-06-28 12:00] VITALS: BP 137/60
--- NOTE | 2020-06-28 14:10 | IPN ---
DATE: 06/28/2020 SUBJECTIVE: The patient is much more awake and alert today. She still seems quite confused, a little bit cantankerous but overall this is much improved status for her at least. She wants to go home but really cannot move herself even in bed to get out of bed thus her judgment is obviously not appropriate at this time. From the standpoint of her arthritis she still is complaining of arthritis pains, etc, but the issue for what I am dealing with is the perineal decubiti and she has received an air mattress over the weekend and looking at her perineum there definitely is some improvement of certain areas and further demarcation of other areas that are full thickness areas. However, still no evidence of sepsis associated with this, no evidence of cellulitis or abscess. The patient also has some heel ulcers that are present. I did not evaluate the heels at the time of the initial visit and I am not sure if these were here before or after but appropriate treatment at this time is being currently done. I would recommend continue current treatment as I stated. I would like to see this diarrhea under control before proceeding with debridement and in any case at this point she does not want to hear about any intervention and just wants to go home. Thus, I anticipate trying to proceed with some sort of debridement and then daily dressing changes would be significantly difficult in this individual. More importantly, with her normal white count, being afebrile and seeing some mild but improved appearance of the more superficial ulcerations, we may have some ability to watch this improve over the next few days and possibly her mentation will improve as well which can lead to a better discussion concerning possible debridement if necessary. DAMARIS
--- NOTE | 2020-06-28 14:13 | IPN ---
NEPHROLOGY PROGRESS NOTE DATE: 06/28/2020 SUBJECTIVE: Ms. Baca is seen this morning on her bedside. Her mentation has improved and she is able to answer questions today; however, she remains very noncompliant as she does not wish to follow any of the advice. Her oral intake is poor and she does not want to eat. She is also refusing TPN which I discussed with her this morning. PHYSICAL EXAMINATION: Temperature 97.6 degrees Fahrenheit, heart rate 84 per minute and respiratory rate 18 per minute. Blood pressure 166/86 mmHg and oxygen saturation 95% on room air. Head: Atraumatic. Neck: Supple and without JVD or thyroid enlargement. Heart: Sounds are regular. Lungs: Clear to auscultation. Abdomen: Soft and nontender and bowel sounds are normal. Peritoneal dialysis catheter is intact. Extremities: No cyanosis or clubbing. Neurologically: She is improving towards her baseline. She is [id number], but she was able to answer questions today. She is still very weak physically. LABORATORY DATA: On review of labs: WBC count 8, hemoglobin 10.1, hematocrit 31.2. Peritoneal dialysis fluid had only 17 WBCs. Her chemistry today showed: Sodium 137, potassium 3.4, CO2 29, BUN 32, creatinine 4.27, glucose 159, calcium 7. PROBLEMS/PLAN: 1. End-stage renal disease: Patient remains on peritoneal dialysis and it is functioning well. We will continue with the current prescription. 2. Peritonitis: She is improving with antibiotic therapy and peritonitis is now much better. We will continue with current antibiotics. 3. Hypokalemia: This is related to poor oral intake. I have advised the patient to drink her Nepro at least 1-2 cans every day. Nursing staff should also encourage her for oral intake. 4. Anemia: Her anemia is stable at present and does not need any urgent intervention. 5. Protein calorie malnutrition: Patient has poor oral intake and I discussed with her about possible TPN; however, she has declined it. We will continue to encourage oral intake. MTDD
[2020-06-28] MEDS ORDERED: LIDOCAINE 1% MDV 20ML VIAL As Ordered ONE (15:08)
[2020-06-28 16:00] VITALS: BP 118/67
--- NOTE | 2020-06-28 16:25 | REP ---
PROCEDURE NAME: PICC LINE INSERTION W/SITERITE CLINICAL INFORMATION: TPN. COMPARISON: None. PROCEDURE DESCRIPTION: The procedure was performed by KHUSHBU Pierre, under the direct supervision of Dr. Greene. The risks and benefits of the procedure were explained to the patient and an informed consent was obtained both verbally and written. Directly prior to the start of the procedure a formal time-out was completed in the procedure room. The left basilic vein was localized using ultrasound guidance. The skin was prepped and draped in sterile fashion. One mL of 1% lidocaine 10 mg/mL was used as a local anesthetic. Using ultrasound guidance the left basilic vein was cannulated, and a 0.018 guidewire was inserted and advanced to the level of SVC using fluoroscopic guidance. The needle was removed and a 5.5 Liberian dilator and peel-away sheath was inserted over the guidewire. A 5.5 Liberian dual lumen catheter was cut to a length of 40 cm. The dilator was removed and the catheter was inserted over the guidewire with the tip ending at the level of the SVC. The peel-away sheath was removed and the catheter was flushed with heparinized saline as per hospital protocol. The catheter was affixed to the skin and a sterile dressing was applied. The patient tolerated the procedure well and there were no immediate complications. CONCLUSION: PICC line insertion into the left basilic vein. 0.2 minutes of fluoroscopy time was utilized for this procedure. Some fluoroscopic images are performed with last image hold technology. These images require no additional radiation. <Electronically signed by Yuki Ng > 06/28/20 1610 <Electronically signed by Raphael Greene > 06/28/20 1621
[2020-06-28] MEDS: cefTRIAXone SOD 1 GM in D5W MINI-BAG PLUS 50 ML IV SCH (16:42)
[2020-06-28] MEDS: SODIUM CHLORIDE 0.9% INJ 10 ML SYR IV SCH (17:36)
[2020-06-28 20:00] VITALS: BP 142/72
[2020-06-29] VITALS: BP 124/76
[2020-06-29] MEDS: KCL 20MEQ in NS 1000ML 1,000 ML IV SCH ×2 (03:15→18:14)
[2020-06-29 04:00] VITALS: BP 137/68
[2020-06-29] MEDS: SODIUM CHLORIDE 0.9% INJ 10 ML SYR IV SCH ×2 (05:11→17:40)
[2020-06-29 05:30] LABS: BASO % 0.4 % (0.0-1.0); EOS # 0.1 10^3/uL (0.0-0.5); EOS % 1.6 % (0.0-3.0); HEMATOCRIT 34.8 % (36.0-47.0); HEMOGLOBIN 11.3 g/dl (12.0-15.5); LYMPH # 0.7 10^3/uL (1.5-5.0); LYMPH % 9.1 % (24.0-44.0); MEAN CORPUSCULAR HEMOGLOBIN 28.5 pg (27.0-33.0); MEAN CORPUSCULAR HGB CONC 32.5 g/dl (32.0-36.5); MEAN CORPUSCULAR VOLUME 87.7 fl (80.0-96.0); MONO # 0.4 10^3/uL (0.0-0.8); MONO % 5.5 % (0.0-5.0); NEUTROPHILS # 6.5 10^3/uL (1.5-8.5); NEUTROPHILS % 81.8 % (36.0-66.0); PLATELET COUNT, AUTOMATED 147 10^3/uL (150-450); RED BLOOD COUNT 3.97 10^6/uL (4.00-5.40)
[2020-06-29 06:05] LABS: CALCIUM LEVEL 7.5 MG/DL (8.8-10.2); CREATININE FOR GFR 3.86 MG/DL (0.55-1.30); POTASSIUM SERUM 4.4 MEQ/L (3.5-5.1)
[2020-06-29 08:00] VITALS: BP 180/106
[2020-06-29] MEDS: VANICREAM MOISTURIZING SKIN CREAM 113GM TUBE TOP SCH ×2 (08:40→21:01)
[2020-06-29] MEDS: HumaLOG INSULIN (NovoLOG) PER UNIT SC SCH ×4 (08:40→21:00)
[2020-06-29] MEDS: HEPARIN SOD (PORCINE) 5000UNITS/ML 1ML VIAL/SYRINGE SC SCH ×2 (08:40→21:00)
[2020-06-29] MEDS: POTASSIUM CHLORIDE 10 MEQ SR TABLET PO SCH (08:41)
[2020-06-29] MEDS: ASPIRIN 325 MG TAB PO SCH (08:41)
[2020-06-29] MEDS: CALCIUM/VITAMIN D 500 MG TAB PO SCH (08:41)
[2020-06-29 12:00] VITALS: BP 121/80
[2020-06-29] MEDS: LOMOTIL 2.5MG/0.025MG TABLET PO SCH ×3 (12:33→21:00)
[2020-06-29] MEDS: cefTRIAXone SOD 1 GM in D5W MINI-BAG PLUS 50 ML IV SCH (13:48)
[2020-06-29 15:44] VITALS: BP 94/51
--- NOTE | 2020-06-29 19:23 | IPNPDOC ---
Date Seen The patient was seen on 06/29/20. Progress Note SUBJECTIVE: She was seen and examined at bedside this morning. She is visibly confused. Oriented only to person. She says states that her diarrhea has improved. She denies abdominal pain, fevers, chills, chest pain, palpitations or shortness of breath. Per RN report, put out 1000 cc via rectal tube since midnight. OBJECTIVE PHYSICAL EXAMINATION: VITAL SIGNS: please see below General: NAD, comfortable HEENT: PERRLA, EOMI, sclerae clear Neck: supple, normal ROM, no JVD Respiratory: lungs CTAB, no wheeze, no rales, mild crackles bilaterally CVS: RRR, normal S1, S2, no murmurs Abdo: soft, no masses, no hepatosplenomegaly, BS+, no rebound tenderness Extremities: 1+ LE edema MSK: no joint deformities, normal ROM Skin: b/l LE chronic venous stasis changes. Unstageable ulcers on buttocks, sa chu and left upper leg present on admission. Neuro: no focal neuro deficits, moving all 4 extremities, CN2-12 intact. Strength 5/5 in all 4 extremities. No nystagmus. Psych: calm, cooperative, AAO x 1 LABORATORY DATA, IMAGING STUDIES, MICROBIOLOGY: Please see below. DVT prophylaxis ordered?: Y 79-year-old female past medical history of ESRD on peritoneal dialysis, insulin- dependent diabetes mellitus, hypertension, brought in the ED by EMS after being called for weakness at her residence. Found to have peritonitis as well as UTI and CAP. Patient was in a state of dishevelment and poor hygiene on arrival. # Disheveled, poor hygiene, multiple wounds: Not caring well for herself. advanced wound care consult Dr Mann recommends surgery for debridement. Consulted Dr Cunningham to evaluate the multiple ulcers, recommending GI eval first for diarrhea. Alternative would be a diverting colostomy, however this would mean that PD would have to stop. Juarez. Rectal tube. Dietitian consult. Ordered PICC line 06/28 to start her on TPN given poor nutritional status which should help with wound healing. Nutrition consult for TPN. # Diarrhea: rectal tube in place. Consulted GI, appreciate recs. GI panel pending. C diff PCR negative. Dr Olmos recommends await GI panel, Fu lactoferrin/calprotectin levels. try cholestyramine 4mg daily. # Peritonitis: IP vanc and gentamycin. Nephro on board. WBC peritoneal fluid 8949 on admission -> 4193-> 343->95->13. Will need to complete 2 weeks total IP ABx. # ESRD: on PD. Nephro consulted Dr mckeon. # CAP and UTI: started on Zosn switched to ceftriaxone 06/25. UCx GBS, BCx negative. Leukocytosis resolved. Can continue for 7-10 day total course. # Rabdo: Improved with IVFs. CPK downtrended. # IDDM: Episode of hypoglycemia. Hold levemir. ISS. Frequent accu-checks. Hypoglycemic precuations. # Left knee pain: Left knee and hip xray negative for fracture. Not complaining of pain anymore. # Suspect undiagnosed dementia: quiet time, frequent reorientation, at risk of ing. IM Haldol as needed for severe agitation. b12/folate/hiv/ammonia. Folate low. # Low folate: replace folate # Hyponatremia: Resolved with NS. # Hypokalemia: Corrected. Monitor. # DVT proph: heparin VS, I&O, 24H, Fishbone Vital Signs/I&O Vital Signs Date Time Temp Pulse Resp B/P (MAP) Pulse Ox O2 Delivery O2 Flow Rate FiO2 06/29/20 15:44 97.7 88 18 94/51 (65) 94 Room Air I&O- Last 24 Hours up to 6 AM 06/29/20 05:59 Intake Total 90756 ml Output Total 50827 ml Balance -680 ml Laboratory Data 24H LABS Laboratory Tests 2 06/28/20 21:07: Bedside Glucose (Misc Panel) 92 06/29/20 04:59: Immature Granulocyte % (Auto) 1.6, Neutrophils (%) (Auto) 81.8H, Lymphocytes (%) (Auto) 9.1L, Monocytes (%) (Auto) 5.5H, Eosinophils (%) (Auto) 1.6, Basophils (%) (Auto) 0.4, Neutrophils # (Auto) 6.5, Lymphocytes # (Auto) 0.7L, Monocytes # (Auto) 0.4, Eosinophils # (Auto) 0.1, Basophils # (Auto) 0.0, Nucleated Red Blood Cells % (auto) 0.0, Anion Gap 7L, Glomerular Filtration Rate 12.0L, Calcium Level 7.5L 06/29/20 12:10: Bedside Glucose (Misc Panel) 138H 06/29/20 17:24: Bedside Glucose (Misc Panel) 97 CBC/BMP Laboratory Tests 06/29/20 04:59 Microbiology Microbiology 06/26/20 Campylobacter (PCR), Received Pending 06/26/20 Clostridium difficile Toxin A&B PCR, Received Pending 06/26/20 Plesiomonas shigelloides (PCR), Received Pending 06/26/20 Salmonella (PCR)([facility]), Received Pending 06/26/20 Vibrio Species (PCR), Received Pending 06/26/20 Vibrio Cholerae (PCR), Received Pending 06/26/20 Yersinia enterocolitica (PCR), Received Pending 06/26/20 Enteroaggregative E. coli (PCR), Received Pending 06/26/20 Enteropathogenic E. coli (PCR), Received Pending 06/26/20 Enterotoxigenic E. coli (PCR), Received Pending 06/26/20 E. coli Shiga-like Toxin (PCR), Received Pending 06/26/20 Escherichia coli 0157 (PCR), Received Pending 06/26/20 Enteroinvasive E. coli/Shigella PCR, Received Pending 06/26/20 Cryptosporidium (PCR), Received Pending 06/26/20 Cyclospora cayetanensis (PCR), Received Pending 06/26/20 Entamoeba histolytica (PCR), Received Pending 06/26/20 Giardia lamblia (PCR), Received Pending 06/26/20 Adenovirus Type F 40/41 (PCR), Received Pending 06/26/20 Astrovirus (PCR), Received Pending 06/26/20 Norovirus GI/GII (PCR), Received Pending 06/26/20 Rotavirus A (PCR), Received Pending 06/26/20 Sapovirus I/II/IV/V (PCR), Received Pending 06/23/20 Fungal Smear, Received Pending 06/23/20 Fungal Culture, Received Pending 06/23/20 Body Fluid Culture - Final, Complete Proteus Mirabilis Klebsiella Pneumoniae Strep Agalactiae Group B 06/23/20 Urine Culture - Final, Complete Strep Agalactiae Group B 06/23/20 Blood Culture - Final, Complete NO GROWTH AFTER 5 DAYS 06/23/20 Blood Culture - Final, Complete NO GROWTH AFTER 5 DAYS 06/23/20 Respiratory Virus Panel (PCR) ([facility]) - Final, Complete JOY SANCHEZ MD Jun 29, 2020 19:23
[2020-06-29 20:00] VITALS: BP 105/65
[2020-06-29] MEDS: CHOLESTYRAMINE 4 GM PWD PKT PO SCH (21:00)
[2020-06-30] VITALS: BP 122/60
[2020-06-30 04:00] VITALS: BP 137/82
[2020-06-30 05:38] LABS: BASO % 0.5 % (0.0-1.0); EOS # 0.2 10^3/uL (0.0-0.5); EOS % 2.7 % (0.0-3.0); HEMATOCRIT 31.9 % (36.0-47.0); LYMPH # 0.8 10^3/uL (1.5-5.0); LYMPH % 12.4 % (24.0-44.0); MEAN CORPUSCULAR HGB CONC 31.3 g/dl (32.0-36.5); MEAN CORPUSCULAR VOLUME 89.4 fl (80.0-96.0); MONO # 0.4 10^3/uL (0.0-0.8); MONO % 6.1 % (0.0-5.0); NEUTROPHILS % 76.6 % (36.0-66.0); PLATELET COUNT, AUTOMATED 113 10^3/uL (150-450); RED BLOOD COUNT 3.57 10^6/uL (4.00-5.40); WHITE BLOOD COUNT 6.6 10^3/uL (4.0-10.0)
[2020-06-30 05:56] LABS: CALCIUM LEVEL 7.4 MG/DL (8.8-10.2); CREATININE FOR GFR 3.71 MG/DL (0.55-1.30); GLOMERULAR FILTRATION RATE 12.6 (>39); POTASSIUM SERUM 5.3 MEQ/L (3.5-5.1)
[2020-06-30] MEDS: SODIUM CHLORIDE 0.9% INJ 10 ML SYR IV SCH ×2 (06:19→18:49)
[2020-06-30 08:00] VITALS: BP 131/81
--- NOTE | 2020-06-30 08:17 | IPN ---
DATE: 06/29/2020 SUBJECTIVE: Mrs. Luis is seen this morning at her bedside. She is awake and talking but sometimes does not make much sense. Nursing staff reports that she has not been eating well. Her peritoneal dialysis has been functioning. She continues to have diarrhea and still has a rectal tube in place. She is also receiving IV fluids. PHYSICAL EXAMINATION: VITAL SIGNS: Temperature 97.2 degrees Fahrenheit, heart rate 76 per minute, respiratory rate 18 per minute, blood pressure 120/80 mm of mercury and oxygen saturation is 96% on room air. HEENT: Head is atraumatic. NECK: Supple and JVD not abnormally elevated. HEART: Regular. LUNGS: Clear to auscultation. ABDOMEN: Soft and nontender and peritoneal dialysis catheter is intact. EXTREMITIES: Without any cyanosis or clubbing. NEUROLOGICALLY: She is awake but very weak. She is able to talk but at times she is talking irrelevant. LABORATORY STUDIES: WBC count 8.0, hemoglobin 11.3 and hematocrit 34.8. Sodium 137, potassium 4.4, CO2 27, BUN 26 and creatinine 3.86. Glucose 152 and calcium 7.9. PROBLEMS: 1. Peritonitis - The patient remains on intravenous Ceftriaxone and intraperitoneal Gentamicin. Her peritonitis has improved, and we are going to continue the antibiotics for now. 2. End-stage renal disease - The patient remains on peritoneal dialysis which will be continued. She seems very well dialyzed. 3. Hypokalemia her potassium level has corrected and I am going to stop her oral potassium supplement. She is receiving potassium in the IV fluids also. 4. Diarrhea she continues to have watery diarrhea and has a rectal tube in place. We will continue the IV fluids for now as her oral intake is poor. 5. Protein calorie malnutrition this is a chronic issue and has much worsened now with poor oral intake. She is still refusing to eat and has also refused to get TPN. MTDD
[2020-06-30] MEDS: HEPARIN SOD (PORCINE) 5000UNITS/ML 1ML VIAL/SYRINGE SC SCH ×2 (08:25→23:27)
[2020-06-30] MEDS: CHOLESTYRAMINE 4 GM PWD PKT PO SCH (08:26)
[2020-06-30] MEDS: CALCIUM/VITAMIN D 500 MG TAB PO SCH (08:27)
[2020-06-30] MEDS: HumaLOG INSULIN (NovoLOG) PER UNIT SC SCH ×3 (08:27→18:00)
[2020-06-30] MEDS: ASPIRIN 325 MG TAB PO SCH (08:27)
[2020-06-30] MEDS ORDERED: NS 1,000 ML IV SCH (08:30)
[2020-06-30] MEDS: VANICREAM MOISTURIZING SKIN CREAM 113GM TUBE TOP SCH ×2 (08:32→23:26)
[2020-06-30] MEDS: LOMOTIL 2.5MG/0.025MG TABLET PO SCH ×4 (08:32→23:26)
[2020-06-30 09:06] LABS: APPEARANCE, BODY FLUID CLEAR (CLEAR); PERITONEAL FL COLOR COLORLESS (COLORLESS); SOURCE, BODY FLUID PERITONEAL
--- NOTE | 2020-06-30 10:36 | IPNPDOC ---
Date Seen The patient was seen on 06/30/20. Progress Note SUBJECTIVE: She was seen and examined at bedside this morning. She is slightly more oriented today, however is being slightly unpleasant to staff from verbal standpoint. She keeps stating that she wants to leave, but it is my clinical judgement that she is not competent to leave AMA. Rectal tube remains in place but has significantly diminished in output, ~100-200 cc total but final volume has not yet been recorded. OBJECTIVE PHYSICAL EXAMINATION: VITAL SIGNS: please see below General: NAD, comfortable HEENT: PERRLA, EOMI, sclerae clear Neck: supple, normal ROM, no JVD Respiratory: lungs CTAB, no wheeze, no rales, mild crackles bilaterally CVS: RRR, normal S1, S2, no murmurs Abdo: soft, no masses, no hepatosplenomegaly, BS+, no rebound tenderness Extremities: 1+ LE edema MSK: no joint deformities, normal ROM Skin: b/l LE chronic venous stasis changes. Unstageable ulcers on buttocks, sacrum and left upper leg present on admission. Neuro: no focal neuro deficits, moving all 4 extremities, CN2-12 intact. Strength 5/5 in all 4 extremities. No nystagmus. Psych: calm, cooperative, AAO x 1 LABORATORY DATA, IMAGING STUDIES, MICROBIOLOGY: Please see below. DVT prophylaxis ordered?: Y 79-year-old female past medical history of ESRD on peritoneal dialysis, insulin- dependent diabetes mellitus, hypertension, brought in the ED by EMS after being called for weakness at her residence. Found to have peritonitis as well as UTI and CAP. Patient was in a state of dishevelment and poor hygiene on arrival. # Disheveled, poor hygiene, multiple wounds: Not caring well for herself. ad vanced wound care consult Dr Mann recommends surgery for debridement. Consulted Dr Cunningham to evaluate the multiple ulcers, recommending GI eval first for diarrhea. Alternative would be a diverting colostomy, however this would mean that PD would have to stop. Juarez. Rectal tube. Dietitian consult. Ordered PICC line 06/28 to start her on TPN given poor nutritional status which should help with wound healing. Nutrition consult for TPN. # Diarrhea: imroving. rectal tube in place. Consulted GI, appreciate recs. GI panel pending. C diff PCR negative. Dr Olmos recommends await GI panel, Fu lactoferrin/calprotectin levels. cholestyramine 4mg daily. # Peritonitis: IP vanc and gentamycin. Nephro on board. WBC peritoneal fluid 8949 on admission -> 4193-> 343->95->13-> 6. Will need to complete 2 weeks total IP ABx. # ESRD: on PD. Nephro consulted Dr mckeon. # CAP and UTI: started on Zosn switched to ceftriaxone 06/25. UCx GBS, BCx negative. Leukocytosis resolved. Can continue for 7-10 day total course. # Rabdo: Improved with IVFs. CPK downtrended. # IDDM: Episode of hypoglycemia. Hold levemir. ISS. Frequent accu-checks. Hypoglycemic precuations. # Left knee pain: Left knee and hip xray negative for fracture. Not complaining of pain anymore. # Suspect undiagnosed dementia: quiet time, frequent reorientation, at risk of owning. IM Haldol as needed for severe agitation. b12/folate/hiv/ammonia. Folate low. # Low folate: replace folate # Hyponatremia: Resolved with NS. # Hypokalemia: Corrected. Monitor. # DVT proph: heparin VS, I&O, 24H, Fishbone Vital Signs/I&O Vital Signs Date Time Temp Pulse Resp B/P (MAP) Pulse Ox O2 Delivery O2 Flow Rate FiO2 06/30/20 08:00 97.0 99 22 131/81 (98) 73 Room Air I&O- Last 24 Hours up to 6 AM 06/30/20 06:00 Intake Total 51672 ml Output Total 91042 ml Balance -1885 ml Laboratory Data 24H LABS Laboratory Tests 2 06/29/20 12:10: Bedside Glucose (Misc Panel) 138H 06/29/20 17:24: Bedside Glucose (Misc Panel) 97 06/29/20 20:59: Bedside Glucose (Misc Panel) 109 06/30/20 05:10: Immature Granulocyte % (Auto) 1.7, Neutrophils (%) (Auto) 76.6H, Lymphocytes (%) (Auto) 12.4L, Monocytes (%) (Auto) 6.1H, Eosinophils (%) (Auto) 2.7, Basophils (%) (Auto) 0.5, Neutrophils # (Auto) 5.0, Lymphocytes # (Auto) 0.8L, Monocytes # (Auto) 0.4, Eosinophils # (Auto) 0.2, Basophils # (Auto) 0.0, Nucleated Red Blood Cells % (auto) 0.0, Anion Gap 5L, Glomerular Filtration Rate 12.6L, Calcium Level 7.4L 06/30/20 06:45: Body Fluid WBC (Auto) 6, Body Fluid RBC (Auto) < 2, Peritoneal Fluid Source PERITONEAL, Peritoneal Fluid Color COLORLESS, Peritoneal Fluid Appearance CLEAR CBC/BMP Laboratory Tests 06/30/20 05:10 Microbiology Microbiology 06/26/20 Campylobacter (PCR), Received Pending 06/26/20 Clostridium difficile Toxin A&B PCR, Received Pending 06/26/20 Plesiomonas shigelloides (PCR), Received Pending 06/26/20 Salmonella (PCR)(SHAYLEE), Received Pending 06/26/20 Vibrio Species (PCR), Received Pending 06/26/20 Vibrio Cholerae (PCR), Received Pending 06/26/20 Yersinia enterocolitica (PCR), Received Pending 06/26/20 Enteroaggregative E. coli (PCR), Received Pending 06/26/20 Enteropathogenic E. coli (PCR), Received Pending 06/26/20 Enterotoxigenic E. coli (PCR), Received Pending 06/26/20 E. coli Shiga-like Toxin (PCR), Received Pending 06/26/20 Escherichia coli 0157 (PCR), Received Pending 06/26/20 Enteroinvasive E. coli/Shigella PCR, Received Pending 06/26/20 Cryptosporidium (PCR), Received Pending 06/26/20 Cyclospora cayetanensis (PCR), Received Pending 06/26/20 Entamoeba histolytica (PCR), Received Pending 06/26/20 Giardia lamblia (PCR), Received Pending 06/26/20 Adenovirus Type F 40/41 (PCR), Received Pending 06/26/20 Astrovirus (PCR), Received Pending 06/26/20 Norovirus GI/GII (PCR), Received Pending 06/26/20 Rotavirus A (PCR), Received Pending 06/26/20 Sapovirus I/II/IV/V (PCR), Received Pending 06/23/20 Fungal Smear, Received Pending 06/23/20 Fungal Culture, Received Pending 06/23/20 Body Fluid Culture - Final, Complete Proteus Mirabilis Klebsiella Pneumoniae Strep Agalactiae Group B 06/23/20 Urine Culture - Final, Complete Strep Agalactiae Group B 06/23/20 Blood Culture - Final, Complete NO GROWTH AFTER 5 DAYS 06/23/20 Blood Culture - Final, Complete NO GROWTH AFTER 5 DAYS 06/23/20 Respiratory Virus Panel (PCR) ([facility]) - Final, Complete JOY SANCHEZ MD Jun 30, 2020 10:36
[2020-06-30] MEDS: cefTRIAXone SOD 1 GM in D5W MINI-BAG PLUS 50 ML IV SCH (12:55)
[2020-06-30 15:28] VITALS: BP 133/87
[2020-06-30] MEDS ORDERED: SODIUM CHLORIDE IV SCH ×7 (18:00)
[2020-06-30] MEDS ORDERED: FAT EMULSION IV 20% 500 ML IV SCH (18:00)
[2020-06-30] MEDS ORDERED: [UNRECOGNIZED DRUG - OTHER] IV SCH ×7 (18:00)
[2020-06-30] MEDS ORDERED: MAGNESIUM SULFATE IV SCH ×7 (18:00)
[2020-06-30] MEDS ORDERED: QUEtiapine FUMARATE 25 MG TAB PO SCH (18:15)
--- NOTE | 2020-06-30 19:46 | IPN ---
PROGRESS NOTE DATE: 06/30/2020 SUBJECTIVE: Mrs. Luis is seen this morning at her bedside. Nursing staff reports that she has been refusing her peritoneal dialysis exchange. She continues to have liquid stool and still has her rectal tube in place. The patient has not been eating and mostly, she refuses all meals. She has been on IV fluid. OBJECTIVE: VITAL SIGNS: Temperature 97 degrees Fahrenheit, heart rate 90 per minute, respiratory rate 20 per minute, blood pressure 130/80 mmHg, and oxygen saturation 100% on room air. HEAD: Atraumatic. NECK: Supple. JVD not abnormally elevated. HEART: Sounds are regular. LUNGS: Sounds clear to auscultation. ABDOMEN: Soft and nontender. Bowel sounds are normal. Peritoneal dialysis catheter is intact. EXTREMITIES: No cyanosis or clubbing. She has a sacral decubitus ulcer, which is covered with dressing. NEUROLOGIC: She is awake and able to answer questions; however, she is quite hard of hearing and also at times, she interacts inappropriately and refuses most of the things. LABORATORY DATA: Today's labs show a WBC count of 6.6, hemoglobin 10.0, hematocrit 31.9, platelets 113,000. Sodium 139, potassium 5.3, CO2 of 27, BUN 22, and creatinine 3.71, glucose 140, and calcium 7.4. PROBLEMS: 1. Peritonitis. She had peritoneal dialysis-associated peritonitis, which has been treated with intraperitoneal gentamicin and intravenous Rocephin. At present, she continues with Rocephin and I am going to resume intraperitoneal gentamicin, which she did not receive for the last couple of days. We will continue with intraperitoneal gentamicin for at least five more days. 2. Hyperkalemia. This is mild and related to intravenous (IV) fluid with potassium supplement. I am going to change her IV fluid to just normal saline and we will recheck her electrolytes. 3. Protein-calorie malnutrition. She has severe protein-calorie malnutrition with diarrhea and she is constantly refusing to eat. She is being started on total parenteral nutrition (TPN) and TPN orders have been written. 4. Diarrhea. She continues to have liquid stool and remains on antibiotics. 5. End-stage renal disease. The patient continues with peritoneal dialysis and seems very well dialyzed. 6. Altered mentation. She does have improvement in her mentation compared to last week; however, still not able to take care of herself. She has been refusing most of her care and at times even refuses medications.
[2020-06-30 22:00] VITALS: BP 135/82
[2020-06-30] MEDS: GENTAMICIN SULF 80MG/2ML VIAL IP SCH (23:27)
[2020-07-01] MEDS: CHOLESTYRAMINE 4 GM PWD PKT PO SCH ×3 (00:28→22:34)
[2020-07-01] MEDS: HumaLOG INSULIN (NovoLOG) PER UNIT SC SCH ×4 (00:29→18:33)
[2020-07-01 06:00] VITALS: BP 109/79
[2020-07-01] MEDS: SODIUM CHLORIDE 0.9% INJ 10 ML SYR IV SCH ×2 (06:38→18:00)
[2020-07-01 06:48] LABS: BASO % 0.5 % (0.0-1.0); EOS # 0.2 10^3/uL (0.0-0.5); EOS % 3.1 % (0.0-3.0); HEMATOCRIT 27.8 % (36.0-47.0); LYMPH # 0.8 10^3/uL (1.5-5.0); LYMPH % 13.3 % (24.0-44.0); MEAN CORPUSCULAR HEMOGLOBIN 29.4 pg (27.0-33.0); MEAN CORPUSCULAR HGB CONC 32.4 g/dl (32.0-36.5); MEAN CORPUSCULAR VOLUME 90.8 fl (80.0-96.0); MONO # 0.3 10^3/uL (0.0-0.8); NEUTROPHILS # 4.7 10^3/uL (1.5-8.5); RED BLOOD COUNT 3.06 10^6/uL (4.00-5.40); WHITE BLOOD COUNT 6.2 10^3/uL (4.0-10.0)
[2020-07-01 07:12] LABS: PLATELET COUNT, AUTOMATED 96 10^3/uL (150-450)
[2020-07-01 07:14] LABS: CREATININE FOR GFR 3.43 MG/DL (0.55-1.30); GLOMERULAR FILTRATION RATE 13.8 (>39); POTASSIUM SERUM 3.8 MEQ/L (3.5-5.1)
[2020-07-01] MEDS: CALCIUM/VITAMIN D 500 MG TAB PO SCH (10:14)
[2020-07-01] MEDS: HEPARIN SOD (PORCINE) 5000UNITS/ML 1ML VIAL/SYRINGE SC SCH ×2 (10:14→22:35)
[2020-07-01] MEDS: LOMOTIL 2.5MG/0.025MG TABLET PO SCH ×4 (10:14→22:34)
[2020-07-01] MEDS: ASPIRIN 325 MG TAB PO SCH (10:14)
[2020-07-01] MEDS: VANICREAM MOISTURIZING SKIN CREAM 113GM TUBE TOP SCH ×2 (10:15→22:36)
--- NOTE | 2020-07-01 10:51 | IPN ---
PROGRESS NOTE DATE: 06/30/2020 SUBJECTIVE: The patient seems to be more awake and alert each day, although she is still not able to take care of herself. She still has a rectal tube in place for the significant diarrhea that she has been having. Not seeing anymore notes from GI commenting about her diarrhea issues at this time. It does seem as though she has had less stool output since I started her on some Lomotil. OBJECTIVE: She has been afebrile and her vital signs have been stable. Her perineum has been reevaluated and in deed, she is having some slow, but progressive, improvement of the overall presentation of this. The areas that were probably grade 2 seem to be healing at this time. The other areas seem to be demarcating, but are still not cellulitic and not necessary to obviously debride at this time. They are not wet necrosis and seem to be drying up a little bit with the dressing changes and also the air mattress in place. Her heel ulcers are blisters with some underlying hematoma, but otherwise I am not seeing any cellulitis in this area. ASSESSMENT AND PLAN: The patient has some stable ulcers and I would recommend continuing with her current treatment. At this time given her diarrhea issues, I still would like to avoid any open perineal wound until this is well under control and thus, it is reasonable to continue with dressing changes as is. If she has an increasing white count, increasing pain or discomfort, or perineal complaints, I would recommend contacting the surgeon regional account executive during this weekend; but otherwise, I will reevaluate her when I am back from this holiday weekend.
[2020-07-01 13:07] LABS: SOURCE, BODY FLUID PERITONEAL DIALYSATE
[2020-07-01 13:08] LABS: APPEARANCE, BODY FLUID CLEAR (CLEAR); PERITONEAL DIALYSATE FL COLOR COLORLESS (COLORLESS)
[2020-07-01 14:13] VITALS: BP 98/40
[2020-07-01] MEDS: cefTRIAXone SOD 1 GM in D5W MINI-BAG PLUS 50 ML IV SCH (14:50)
--- NOTE | 2020-07-01 16:35 | IPNPDOC ---
Date Seen The patient was seen on 07/01/20. Progress Note SUBJECTIVE: She was seen and examined at bedside this morning. She is slightly more oriented today, to person, place and time however she is unaware of her reasons for admission and her condition. TPN running. She is not eating significant quantities. She put out ~300 cc of stool in rectal tube. She denies CP, n/v/d, fevers, chills, or back pain. OBJECTIVE PHYSICAL EXAMINATION: VITAL SIGNS: please see below General: NAD, comfortable HEENT: PERRLA, EOMI, sclerae clear Neck: supple, normal ROM, no JVD Respiratory: lungs CTAB, no wheeze, no rales, mild crackles bilaterally CVS: RRR, normal S1, S2, no murmurs Abdo: soft, no masses, no hepatosplenomegaly, BS+, no rebound tenderness Extremities: 1+ LE edema MSK: no joint deformities, normal ROM Skin: b/l LE chronic venous stasis changes. Unstageable ulcers on buttocks, sacrum and left upper leg present on admission. Neuro: no focal neuro deficits, moving all 4 extremities, CN2-12 intact. Strength 5/5 in all 4 extremities. No nystagmus. Psych: calm, cooperative, AAO x 1 LABORATORY DATA, IMAGING STUDIES, MICROBIOLOGY: Please see below. DVT prophylaxis ordered?: Y 79-year-old female past medical history of ESRD on peritoneal dialysis, insulin- dependent diabetes mellitus, hypertension, brought in the ED by EMS after being called for weakness at her residence. Found to have peritonitis as well as UTI and CAP. Patient was in a state of dishevelment and poor hygiene on arrival. # Disheveled, poor hygiene, multiple wounds: Not caring well for herself. advanced wound care consult Dr Mann recommends surgery for debridement. Consulted Dr Cunningham to evaluate the multiple ulcers. Debridement deferred, will monitor progress, per Dr. Cunningham would defer until diarrhea improves. On cholestyramine. #protein calorie malnutrition: foundry manager eval. TPN. # Diarrhea: improving. rectal tube in place. Consulted GI, appreciate recs. GI panel negative. C diff PCR negative. Cholestyramine 4mg daily. # Peritonitis: IP gentamycin through 07/06. Ceftriaxone. Nephro on board. WBC peritoneal fluid 8949 on admission -> 4193-> 343->95->13-> 6. # ESRD: on PD. Nephro consulted Dr mckeon. # CAP and UTI: started on Zosn switched to ceftriaxone 06/25. UCx GBS, BCx negative. Leukocytosis resolved. Can continue for 7-10 day total course. # Rabdo: Improved with IVFs. CPK downtrended. # IDDM: Episode of hypoglycemia. Hold levemir. ISS. Frequent accu-checks. Hypoglycemic precuations. # Left knee pain: Left knee and hip xray negative for fracture. Not complaining of pain anymore. # Suspect undiagnosed dementia with behaviurs: quiet time, frequent reorientation, at risk of . IM Haldol as needed for severe agitation. Started seroquel 25 mg q6pm. b12/folate/hiv/ammonia. Folate low. # Low folate: replace folate # Hyponatremia: Resolved with NS. # Hypokalemia: Corrected. Monitor. # DVT proph: heparin VS, I&O, 24H, Fishbone Vital Signs/I&O Vital Signs Date Time Temp Pulse Resp B/P (MAP) Pulse Ox O2 Delivery O2 Flow Rate FiO2 07/01/20 14:13 98.2 91 22 98/40 (59) 98 Room Air I&O- Last 24 Hours up to 6 AM 07/01/20 06:00 Intake Total 13826 ml Output Total 8600 ml Balance 3210 ml Laboratory Data 24H LABS Laboratory Tests 2 06/30/20 17:01: Bedside Glucose (Misc Panel) 101 07/01/20 00:10: Bedside Glucose (Misc Panel) 161H 07/01/20 05:23: Bedside Glucose (Misc Panel) 151H 07/01/20 05:52: Immature Granulocyte % (Auto) 1.1, Neutrophils (%) (Auto) 77.0H, Lymphocytes (%) (Auto) 13.3L, Monocytes (%) (Auto) 5.0, Eosinophils (%) (Auto) 3.1H, Basophils (%) (Auto) 0.5, Neutrophils # (Auto) 4.7, Lymphocytes # (Auto) 0.8L, Monocytes # (Auto) 0.3, Eosinophils # (Auto) 0.2, Basophils # (Auto) 0.0, Nucleated Red Blood Cells % (auto) 0.0, Immature Platelet Fraction 3.9, Anion Gap 8, Glomerular Filtration Rate 13.8L, Calcium Level 7.0L 07/01/20 11:23: Body Fluid Source PERITONEAL DIALYSATE, Body Fluid WBC (Auto) 3, Body Fluid RBC (Auto) < 2, Peritoneal Fluid Color COLORLESS, Peritoneal Fluid Appearance CLEAR 07/01/20 12:33: Bedside Glucose (Misc Panel) 181H CBC/BMP Laboratory Tests 07/01/20 05:52 Microbiology Microbiology 06/26/20 Campylobacter (PCR) - Final, Complete 06/26/20 Clostridium difficile Toxin A&B PCR - Final, Complete 06/26/20 Plesiomonas shigelloides (PCR) - Final, Complete 06/26/20 Salmonella (PCR)(SHAYLEE) - Final, Complete 06/26/20 Vibrio Species (PCR) - Final, Complete 06/26/20 Vibrio Cholerae (PCR) - Final, Complete 06/26/20 Yersinia enterocolitica (PCR) - Final, Complete 06/26/20 Enteroaggregative E. coli (PCR) - Final, Complete 06/26/20 Enteropathogenic E. coli (PCR) - Final, Complete 06/26/20 Enterotoxigenic E. coli (PCR) - Final, Complete 06/26/20 E. coli Shiga-like Toxin (PCR) - Final, Complete 06/26/20 Escherichia coli 0157 (PCR) - Final, Complete 06/26/20 Enteroinvasive E. coli/Shigella PCR - Final, Complete 06/26/20 Cryptosporidium (PCR) - Final, Complete 06/26/20 Cyclospora cayetanensis (PCR) - Final, Complete 06/26/20 Entamoeba histolytica (PCR) - Final, Complete 06/26/20 Giardia lamblia (PCR) - Final, Complete 06/26/20 Adenovirus Type F 40/41 (PCR) - Final, Complete 06/26/20 Astrovirus (PCR) - Final, Complete 06/26/20 Norovirus GI/GII (PCR) - Final, Complete 06/26/20 Rotavirus A (PCR) - Final, Complete 06/26/20 Sapovirus I/II/IV/V (PCR) - Final, Complete 06/23/20 Fungal Smear, Received Pending 06/23/20 Fungal Culture, Received Pending 06/23/20 Body Fluid Culture - Final, Complete Proteus Mirabilis Klebsiella Pneumoniae Strep Agalactiae Group B 06/23/20 Urine Culture - Final, Complete Strep Agalactiae Group B 06/23/20 Blood Culture - Final, Complete NO GROWTH AFTER 5 DAYS 06/23/20 Blood Culture - Final, Complete NO GROWTH AFTER 5 DAYS 06/23/20 Respiratory Virus Panel (PCR) (SHAYLEE) - Final, Complete JOY SANCHEZ MD Jul 01, 2020 16:35
[2020-07-01] MEDS ORDERED: POTASSIUM CHLORIDE IV SCH ×6 (18:00)
[2020-07-01] MEDS ORDERED: FAT EMULSION IV 20% 500 ML IV SCH (18:00)
[2020-07-01] MEDS ORDERED: [UNRECOGNIZED DRUG - OTHER] IV SCH ×6 (18:00)
[2020-07-01] MEDS ORDERED: SODIUM CHLORIDE IV SCH ×6 (18:00)
[2020-07-01 22:00] VITALS: BP 122/57
[2020-07-01] MEDS: GENTAMICIN SULF 80MG/2ML VIAL IP SCH (22:35)
[2020-07-01] MEDS: QUEtiapine FUMARATE 25 MG TAB PO SCH (22:35)
[2020-07-02] MEDS: HumaLOG INSULIN (NovoLOG) PER UNIT SC SCH ×4 (00:45→17:37)
[2020-07-02 06:00] LABS: ALBUMIN 1.1 GM/DL (3.2-5.2); CALCIUM LEVEL 7.3 MG/DL (8.8-10.2); CREATININE FOR GFR 3.35 MG/DL (0.55-1.30); GLOMERULAR FILTRATION RATE 14.1 (>39); MAGNESIUM LEVEL 1.7 MG/DL (1.8-2.4); PHOSPHORUS LEVEL 1.3 MG/DL (2.5-4.9); POTASSIUM SERUM 3.4 MEQ/L (3.5-5.1)
[2020-07-02 07:01] VITALS: BP 116/42
[2020-07-02] MEDS: SODIUM CHLORIDE 0.9% INJ 10 ML SYR IV SCH ×2 (07:20→17:38)
[2020-07-02 07:53] LABS: BASO % 0.5 % (0.0-1.0); EOS # 0.1 10^3/uL (0.0-0.5); EOS % 2.3 % (0.0-3.0); HEMATOCRIT 29.2 % (36.0-47.0); HEMOGLOBIN 9.1 g/dl (12.0-15.5); LYMPH # 0.6 10^3/uL (1.5-5.0); LYMPH % 9.9 % (24.0-44.0); MEAN CORPUSCULAR HEMOGLOBIN 28.3 pg (27.0-33.0); MEAN CORPUSCULAR HGB CONC 31.2 g/dl (32.0-36.5); MEAN CORPUSCULAR VOLUME 90.7 fl (80.0-96.0); MONO # 0.3 10^3/uL (0.0-0.8); MONO % 5.5 % (0.0-5.0); NEUTROPHILS # 4.8 10^3/uL (1.5-8.5); RED BLOOD COUNT 3.22 10^6/uL (4.00-5.40)
[2020-07-02 07:56] LABS: PLATELET COUNT, AUTOMATED 95 10^3/uL (150-450)
[2020-07-02] MEDS ORDERED: DARBEPOETIN 100 MCG/0.5 ML *NON-DIALYSIS* SYRINGE (J0881) SC SCH (09:00)
--- NOTE | 2020-07-02 09:35 | IPNPDOC ---
Date Seen The patient was seen on 07/02/20. Progress Note SUBJECTIVE: She was seen and examined at bedside this morning. She is alert to person and place, but remains confused. She is not eating significant quantities. TPN running. OBJECTIVE PHYSICAL EXAMINATION: VITAL SIGNS: please see below General: NAD, comfortable HEENT: PERRLA, EOMI, sclerae clear Neck: supple, normal ROM, no JVD Respiratory: lungs CTAB, no wheeze, no rales, mild crackles bilaterally CVS: RRR, normal S1, S2, no murmurs Abdo: soft, no masses, no hepatosplenomegaly, BS+, no rebound tenderness Extremities: 1+ LE edema MSK: no joint deformities, normal ROM Skin: b/l LE chronic venous stasis changes. Unstageable ulcers on buttocks, sacrum and left upper leg present on admission. Neuro: no focal neuro deficits, moving all 4 extremities, CN2-12 intact. Strength 5/5 in all 4 extremities. No nystagmus. Psych: calm, cooperative, AAO x 1 LABORATORY DATA, IMAGING STUDIES, MICROBIOLOGY: Please see below. DVT prophylaxis ordered?: Y 79-year-old female past medical history of ESRD on peritoneal dialysis, insulin- dependent diabetes mellitus, hypertension, brought in the ED by EMS after being called for weakness at her residence. Found to have peritonitis as well as UTI and CAP. Patient was in a state of dishevelment and poor hygiene on arrival. # Disheveled, poor hygiene, multiple wounds: Not caring well for herself. advanced wound care consult Dr Mann recommends surgery for debridement. Consulted Dr Cunningham to evaluate the multiple ulcers. Debridement deferred, will monitor progress, per Dr. Cunningham would defer until diarrhea improves. On cholestyramine. #protein calorie malnutrition: waxer floor eval. TPN. # Diarrhea: improving. rectal tube in place. Consulted GI, appreciate recs. GI panel negative. C diff PCR negative. Cholestyramine 4mg daily. # Peritonitis: IP gentamycin through 07/06. Ceftriaxone. Nephro on board. # ESRD: on PD. Nephro consulted Dr mckeon. # CAP and UTI: started on Zosyn switched to ceftriaxone 06/25. UCx GBS, BCx negative. Leukocytosis resolved. Can continue for 7-10 day total course. # Rabdo: Improved with IVFs. CPK downtrended. # IDDM: levemir. ISS. Frequent accu-checks. Hypoglycemic precautions. # Left knee pain: Left knee and hip xray negative for fracture. Not complaining of pain anymore. # Suspect undiagnosed dementia with behaviors: quiet time, frequent reorientation, at risk of sundowning. IM Haldol as needed for severe agitation. Started seroquel 25 mg q6pm. b12/folate/hiv/ammonia. Folate low. # Low folate: replace folate # Hyponatremia: Resolved with NS. # Hypokalemia: Corrected. Monitor. # DVT proph: heparin VS, I&O, 24H, Fishbone Vital Signs/I&O Vital Signs Date Time Temp Pulse Resp B/P (MAP) Pulse Ox O2 Delivery O2 Flow Rate FiO2 07/02/20 07:01 97.6 82 20 116/42 (66) 98 Room Air I&O- Last 24 Hours up to 6 AM 07/02/20 06:00 Intake Total 00482 ml Output Total 32827 ml Balance 410 ml Laboratory Data 24H LABS Laboratory Tests 2 07/01/20 11:23: Body Fluid Source PERITONEAL DIALYSATE, Body Fluid WBC (Auto) 3, Body Fluid RBC (Auto) < 2, Peritoneal Fluid Color COLORLESS, Peritoneal Fluid Appearance CLEAR 07/01/20 12:33: Bedside Glucose (Misc Panel) 181H 07/01/20 17:59: Bedside Glucose (Misc Panel) 144H 07/02/20 05:12: Immature Granulocyte % (Auto) 0.8, Neutrophils (%) (Auto) 81.0H, Lymphocytes (%) (Auto) 9.9L, Monocytes (%) (Auto) 5.5H, Eosinophils (%) (Auto) 2.3, Basophils (%) (Auto) 0.5, Neutrophils # (Auto) 4.8, Lymphocytes # (Auto) 0.6L, Monocytes # (Auto) 0.3, Eosinophils # (Auto) 0.1, Basophils # (Auto) 0.0, Nucleated Red Blood Cells % (auto) 0.0 07/02/20 05:14: Anion Gap 6L, Glomerular Filtration Rate 14.1L, Calcium Level 7.3L, Phosphorus Level 1.3L, Magnesium Level 1.7L, Albumin 1.1L CBC/BMP Laboratory Tests 07/02/20 05:12 07/02/20 05:14 Microbiology Microbiology 06/26/20 Campylobacter (PCR) - Final, Complete 06/26/20 Clostridium difficile Toxin A&B PCR - Final, Complete 06/26/20 Plesiomonas shigelloides (PCR) - Final, Complete 06/26/20 Salmonella (PCR)(SHAYLEE) - Final, Complete 06/26/20 Vibrio Species (PCR) - Final, Complete 06/26/20 Vibrio Cholerae (PCR) - Final, Complete 06/26/20 Yersinia enterocolitica (PCR) - Final, Complete 06/26/20 Enteroaggregative E. coli (PCR) - Final, Complete 06/26/20 Enteropathogenic E. coli (PCR) - Final, Complete 06/26/20 Enterotoxigenic E. coli (PCR) - Final, Complete 06/26/20 E. coli Shiga-like Toxin (PCR) - Final, Complete 06/26/20 Escherichia coli 0157 (PCR) - Final, Complete 06/26/20 Enteroinvasive E. coli/Shigella PCR - Final, Complete 06/26/20 Cryptosporidium (PCR) - Final, Complete 06/26/20 Cyclospora cayetanensis (PCR) - Final, Complete 06/26/20 Entamoeba histolytica (PCR) - Final, Complete 06/26/20 Giardia lamblia (PCR) - Final, Complete 06/26/20 Adenovirus Type F 40/41 (PCR) - Final, Complete 06/26/20 Astrovirus (PCR) - Final, Complete 06/26/20 Norovirus GI/GII (PCR) - Final, Complete 06/26/20 Rotavirus A (PCR) - Final, Complete 06/26/20 Sapovirus I/II/IV/V (PCR) - Final, Complete 06/23/20 Fungal Smear, Received Pending 06/23/20 Fungal Culture, Received Pending 06/23/20 Body Fluid Culture - Final, Complete Proteus Mirabilis Klebsiella Pneumoniae Strep Agalactiae Group B 06/23/20 Urine Culture - Final, Complete Strep Agalactiae Group B 06/23/20 Blood Culture - Final, Complete NO GROWTH AFTER 5 DAYS 06/23/20 Blood Culture - Final, Complete NO GROWTH AFTER 5 DAYS 06/23/20 Respiratory Virus Panel (PCR) (SHAYLEE) - Final, Complete JOY SANCHEZ MD Jul 02, 2020 09:35
[2020-07-02] MEDS: LOMOTIL 2.5MG/0.025MG TABLET PO SCH ×4 (11:01→22:45)
[2020-07-02] MEDS: MAG SULF 1GM/100ML (MAG RUN) 1 GM in IV 1 EA IV SCH ×2 (11:18→12:14)
[2020-07-02] MEDS: VANICREAM MOISTURIZING SKIN CREAM 113GM TUBE TOP SCH ×2 (11:21→22:47)
[2020-07-02] MEDS: HEPARIN SOD (PORCINE) 5000UNITS/ML 1ML VIAL/SYRINGE SC SCH ×2 (12:16→22:46)
[2020-07-02] MEDS: ASPIRIN 325 MG TAB PO SCH (12:17)
[2020-07-02] MEDS: CALCIUM/VITAMIN D 500 MG TAB PO SCH (12:17)
--- NOTE | 2020-07-02 12:19 | IPN ---
NEPHROLOGY PROGRESS NOTE DATE: 07/01/2020 SUBJECTIVE: Ms. Baca is seen this morning on her bedside. She is awake and talking, but she has been very negative in following any advice. She does not want to eat and has been refusing medications at times. Nursing staff report that after significant encouragement she did agree to take her medications this morning. She remains on peritoneal dialysis which has been functioning well. This morning I see her bag has a mild pink color to it. PHYSICAL EXAMINATION: Temperature 98.1 degrees Fahrenheit, heart rate 86 per minute and respiratory rate 18 per minute. Blood pressure 109/79 mmHg and oxygen saturation 99% on room air. Head: Atraumatic. Neck: Supple and without JVD or thyroid enlargement. Heart: Sounds are regular. Lungs: Clear to auscultation. Abdomen: Soft and nontender and bowel sounds are normal. Peritoneal dialysis catheter is intact. Extremities: Without any cyanosis or clubbing. Neurologically: She has no focal deficit. She is significantly [id number], but does not wish to follow any directions. LABORATORY DATA: Today\s labs show sodium 140, potassium 3.8, CO2 25, BUN 23 and creatinine 3.43, glucose 144, calcium 7. WBC count 6.2, hemoglobin 9, hematocrit 27.8. Peritoneal dialysis fluid has only 3 WBCs and less than 2 RBCs though the colored looked pinkish to me. PROBLEMS/PLAN: 1. Altered mentation: Her mentation was probably related to sepsis and has improved now. She is almost back to her baseline. 2. End-stage renal disease: Patient remains on peritoneal dialysis and we are continuing with the same prescription. She seems very well dialyzed. 3. Hyperkalemia: Potassium level was slightly high today related to a potassium supplement and has improved now. 4. Peritonitis and diarrhea: Her peritonitis has improved and we will continue with gentamicin 40 mg intraperitoneally for 3 more days. She is also receiving intravenous Rocephin. 5. Protein calorie malnutrition: Patient has been refusing to eat and has severe malnutrition. She is currently on TPN and I renewed her TPN orders. 6. Hypomagnesemia: This is nutritional and her magnesium level will be checked tomorrow morning. We are adding extra magnesium in the TPN. 7. Anemia: Her anemia is stable at present and does not need any transfusion. I am going to give her a dose of Aranesp 100 mcg tomorrow morning.
[2020-07-02] MEDS: K-PHOS NEUTRAL 250MG TABLET (SOD.PHOSPHATE/POT.PHOSPHATE) PO SCH ×3 (12:22→22:45)
[2020-07-02] MEDS: CHOLESTYRAMINE 4 GM PWD PKT PO SCH ×2 (12:22→22:45)
[2020-07-02] MEDS: cefTRIAXone SOD 1 GM in D5W MINI-BAG PLUS 50 ML IV SCH (13:23)
[2020-07-02 14:04] VITALS: BP 134/72
[2020-07-02] MEDS: SODIUM CHLORIDE 0.9% INJ 10 ML SYR IV PRN (14:23)
[2020-07-02] MEDS ORDERED: POTASSIUM CHLORIDE IV SCH ×9 (18:00)
[2020-07-02] MEDS ORDERED: [UNRECOGNIZED DRUG - OTHER] IV SCH ×9 (18:00)
[2020-07-02] MEDS ORDERED: FAT EMULSION IV 20% 500 ML IV SCH (18:00)
[2020-07-02] MEDS ORDERED: SODIUM CHLORIDE IV SCH ×9 (18:00)
[2020-07-02 18:41] LABS: APPEARANCE, BODY FLUID CLEAR (CLEAR); SOURCE, BODY FLUID PERICARDIAL
[2020-07-02 22:00] VITALS: BP 101/49
[2020-07-02] MEDS: QUEtiapine FUMARATE 25 MG TAB PO SCH (22:45)
[2020-07-03] MEDS: HumaLOG INSULIN (NovoLOG) PER UNIT SC SCH ×4 (00:18→18:00)
[2020-07-03] MEDS: SODIUM CHLORIDE 0.9% INJ 10 ML SYR IV SCH ×2 (05:35→18:00)
[2020-07-03 05:51] LABS: BASO % 0.5 % (0.0-1.0); EOS # 0.1 10^3/uL (0.0-0.5); EOS % 2.1 % (0.0-3.0); HEMATOCRIT 25.6 % (36.0-47.0); HEMOGLOBIN 8.4 g/dl (12.0-15.5); LYMPH # 0.6 10^3/uL (1.5-5.0); LYMPH % 9.8 % (24.0-44.0); MEAN CORPUSCULAR HEMOGLOBIN 28.8 pg (27.0-33.0); MEAN CORPUSCULAR HGB CONC 32.8 g/dl (32.0-36.5); MEAN CORPUSCULAR VOLUME 87.7 fl (80.0-96.0); MONO # 0.3 10^3/uL (0.0-0.8); MONO % 4.8 % (0.0-5.0); NEUTROPHILS # 4.8 10^3/uL (1.5-8.5); NEUTROPHILS % 82.1 % (36.0-66.0); PLATELET COUNT, AUTOMATED 110 10^3/uL (150-450); RED BLOOD COUNT 2.92 10^6/uL (4.00-5.40); WHITE BLOOD COUNT 5.8 10^3/uL (4.0-10.0)
[2020-07-03 06:00] VITALS: BP 103/49
[2020-07-03 06:20] LABS: ALBUMIN 1.1 GM/DL (3.2-5.2); BILIRUBIN,TOTAL 0.2 MG/DL (0.2-1.0); CREATININE FOR GFR 3.12 MG/DL (0.55-1.30); GLOMERULAR FILTRATION RATE 15.4 (>39); MAGNESIUM LEVEL 2.2 MG/DL (1.8-2.4); PHOSPHORUS LEVEL 1.5 MG/DL (2.5-4.9); POTASSIUM SERUM 3.4 MEQ/L (3.5-5.1); TOTAL PROTEIN 3.9 GM/DL (6.4-8.2)
[2020-07-03] MEDS: VANICREAM MOISTURIZING SKIN CREAM 113GM TUBE TOP SCH ×2 (10:02→21:00)
[2020-07-03] MEDS: CALCIUM/VITAMIN D 500 MG TAB PO SCH (10:02)
[2020-07-03] MEDS: K-PHOS NEUTRAL 250MG TABLET (SOD.PHOSPHATE/POT.PHOSPHATE) PO SCH (10:02)
[2020-07-03] MEDS: LOMOTIL 2.5MG/0.025MG TABLET PO SCH ×4 (10:02→22:30)
[2020-07-03] MEDS: HEPARIN SOD (PORCINE) 5000UNITS/ML 1ML VIAL/SYRINGE SC SCH ×2 (10:02→21:00)
[2020-07-03] MEDS: ASPIRIN 325 MG TAB PO SCH (10:02)
[2020-07-03 10:38] LABS: PERCENT SATURATION 19.6 % (13.2-45.0)
[2020-07-03] MEDS: CHOLESTYRAMINE 4 GM PWD PKT PO SCH ×2 (12:08→22:31)
[2020-07-03 14:00] VITALS: BP 103/47
[2020-07-03] MEDS: cefTRIAXone SOD 1 GM in D5W MINI-BAG PLUS 50 ML IV SCH (14:40)
[2020-07-03] MEDS ORDERED: [UNRECOGNIZED DRUG - OTHER] IV SCH ×7 (18:00)
[2020-07-03] MEDS ORDERED: FAT EMULSION IV 20% 500 ML IV SCH (18:00)
[2020-07-03] MEDS ORDERED: POTASSIUM CHLORIDE IV SCH ×7 (18:00)
[2020-07-03] MEDS ORDERED: SODIUM CHLORIDE IV SCH ×7 (18:00)
--- NOTE | 2020-07-03 21:59 | IPNPDOC ---
Date Seen The patient was seen on 07/03/20. Progress Note SUBJECTIVE: She was seen and examined at bedside this morning. She is alert to person and place, but remains confused. She is not eating significant quantities. TPN running. OBJECTIVE PHYSICAL EXAMINATION: VITAL SIGNS: please see below General: NAD, comfortable HEENT: PERRLA, EOMI, sclerae clear Neck: supple, normal ROM, no JVD Respiratory: lungs CTAB, no wheeze, no rales, mild crackles bilaterally CVS: RRR, normal S1, S2, no murmurs Abdo: soft, no masses, no hepatosplenomegaly, BS+, no rebound tenderness Extremities: 1+ LE edema MSK: no joint deformities, normal ROM Skin: b/l LE chronic venous stasis changes. Unstageable ulcers on buttocks, sacrum and left upper leg present on admission. Neuro: no focal neuro deficits, moving all 4 extremities, CN2-12 intact. Strength 5/5 in all 4 extremities. No nystagmus. Psych: calm, cooperative, AAO x 1 LABORATORY DATA, IMAGING STUDIES, MICROBIOLOGY: Please see below. DVT prophylaxis ordered?: Y 79-year-old female past medical history of ESRD on peritoneal dialysis, insulin- dependent diabetes mellitus, hypertension, brought in the ED by EMS after being called for weakness at her residence. Found to have peritonitis as well as UTI and CAP. Patient was in a state of dishevelment and poor hygiene on arrival. # Disheveled, poor hygiene, multiple wounds: Not caring well for herself. advanced wound care consult Dr Mann recommends surgery for debridement. Consulted Dr Cunningham to evaluate the multiple ulcers. Debridement deferred, will monitor progress, per Dr. Cunningham would defer until diarrhea improves. On cholestyramine. #protein calorie malnutrition: head charrer eval. TPN. # Diarrhea: improving. rectal tube in place. Consulted GI, appreciate recs. GI panel negative. C diff PCR negative. Cholestyramine 4mg daily. # Peritonitis: IP gentamycin through 07/06. Ceftriaxone. Nephro on board. # ESRD: on PD. Nephro consulted Dr mckeon. # CAP and UTI: started on Zosyn switched to ceftriaxone 06/25. UCx GBS, BCx negative. Leukocytosis resolved. Can continue for 7-10 day total course. # Rabdo: Improved with IVFs. CPK downtrended. # IDDM: levemir. ISS. Frequent accu-checks. Hypoglycemic precautions. # Left knee pain: Left knee and hip xray negative for fracture. Not complaining of pain anymore. # Suspect undiagnosed dementia with behaviors: quiet time, frequent reorientation, at risk of sundowning. IM Haldol as needed for severe agitation. Started seroquel 25 mg q6pm. b12/folate/hiv/ammonia. Folate low. # Low folate: replace folate # Hyponatremia: Resolved with NS. # Hypokalemia: Corrected. Monitor. # DVT proph: heparin Had in depth discussion with Son regarding GOC given numerous chronic co-morbidities (ESRD on PD, protein calorie malnutrition, chronic decuties ulcers, dementia), agrees with getting palliative care involved in care. VS, I&O, 24H, Fishbone Vital Signs/I&O Vital Signs Date Time Temp Pulse Resp B/P (MAP) Pulse Ox O2 Delivery O2 Flow Rate FiO2 07/03/20 14:00 98.2 81 18 103/47 (65) 97 Room Air I&O- Last 24 Hours up to 6 AM 07/03/20 06:00 Intake Total 22494 ml Output Total 52731 ml Balance 2420 ml Laboratory Data 24H LABS Laboratory Tests 2 07/02/20 23:43: Bedside Glucose (Misc Panel) 200H 07/03/20 05:20: Immature Granulocyte % (Auto) 0.7, Neutrophils (%) (Auto) 82.1H, Lymphocytes (%) (Auto) 9.8L, Monocytes (%) (Auto) 4.8, Eosinophils (%) (Auto) 2.1, Basophils (%) (Auto) 0.5, Neutrophils # (Auto) 4.8, Lymphocytes # (Auto) 0.6L, Monocytes # (Auto) 0.3, Eosinophils # (Auto) 0.1, Basophils # (Auto) 0.0, Nucleated Red Blood Cells % (auto) 0.0, Anion Gap 7L, Glomerular Filtration Rate 15.4L, C alcium Level 7.0L, Phosphorus Level 1.5L, Magnesium Level 2.2, Iron Level 18L, Total Iron Binding Capacity 92L, Transferrin % Saturation 19.6, Ferritin 718H, Total Bilirubin 0.2, Aspartate Amino Transf (AST/SGOT) 17, Alanine Aminotransferase (ALT/SGPT) 21, Alkaline Phosphatase 145H, Total Protein 3.9L, Albumin 1.1L, Albumin/Globulin Ratio 0.4L 07/03/20 05:26: Bedside Glucose (Misc Panel) 191H 07/03/20 12:23: Bedside Glucose (Misc Panel) 257H 07/03/20 18:19: Bedside Glucose (Misc Panel) 147H CBC/BMP Laboratory Tests 07/03/20 05:20 Microbiology Microbiology 06/26/20 Campylobacter (PCR) - Final, Complete 06/26/20 Clostridium difficile Toxin A&B PCR - Final, Complete 06/26/20 Plesiomonas shigelloides (PCR) - Final, Complete 06/26/20 Salmonella (PCR)(SHAYLEE) - Final, Complete 06/26/20 Vibrio Species (PCR) - Final, Complete 06/26/20 Vibrio Cholerae (PCR) - Final, Complete 06/26/20 Yersinia enterocolitica (PCR) - Final, Complete 06/26/20 Enteroaggregative E. coli (PCR) - Final, Complete 06/26/20 Enteropathogenic E. coli (PCR) - Final, Complete 06/26/20 Enterotoxigenic E. coli (PCR) - Final, Complete 06/26/20 E. coli Shiga-like Toxin (PCR) - Final, Complete 06/26/20 Escherichia coli 0157 (PCR) - Final, Complete 06/26/20 Enteroinvasive E. coli/Shigella PCR - Final, Complete 06/26/20 Cryptosporidium (PCR) - Final, Complete 06/26/20 Cyclospora cayetanensis (PCR) - Final, Complete 06/26/20 Entamoeba histolytica (PCR) - Final, Complete 06/26/20 Giardia lamblia (PCR) - Final, Complete 06/26/20 Adenovirus Type F 40/41 (PCR) - Final, Complete 06/26/20 Astrovirus (PCR) - Final, Complete 06/26/20 Norovirus GI/GII (PCR) - Final, Complete 06/26/20 Rotavirus A (PCR) - Final, Complete 06/26/20 Sapovirus I/II/IV/V (PCR) - Final, Complete 06/23/20 Fungal Smear, Received Pending 06/23/20 Fungal Culture, Received Pending 11/18/20 Body Fluid Culture - Final, Complete Proteus Mirabilis Klebsiella Pneumoniae Strep Agalactiae Group B 06/23/20 Urine Culture - Final, Complete Strep Agalactiae Group B 06/23/20 Blood Culture - Final, Complete NO GROWTH AFTER 5 DAYS 06/23/20 Blood Culture - Final, Complete NO GROWTH AFTER 5 DAYS 06/23/20 Respiratory Virus Panel (PCR) (SHAYLEE) - Final, Complete JOY SANCHEZ MD Jul 03, 2020 21:59
[2020-07-03 22:00] VITALS: BP 143/69
[2020-07-03] MEDS: QUEtiapine FUMARATE 25 MG TAB PO SCH (22:30)
[2020-07-04] MEDS: HumaLOG INSULIN (NovoLOG) PER UNIT SC SCH ×4 (00:39→18:23)
[2020-07-04 05:55] LABS: HEMATOCRIT 30.5 % (36.0-47.0); MEAN CORPUSCULAR HEMOGLOBIN 29.6 pg (27.0-33.0); MEAN CORPUSCULAR HGB CONC 32.8 g/dl (32.0-36.5); MEAN CORPUSCULAR VOLUME 90.2 fl (80.0-96.0); RED BLOOD COUNT 3.38 10^6/uL (4.00-5.40); WHITE BLOOD COUNT 6.3 10^3/uL (4.0-10.0)
[2020-07-04 05:56] LABS: BASO % 0.5 % (0.0-1.0); EOS # 0.1 10^3/uL (0.0-0.5); EOS % 2.2 % (0.0-3.0); LYMPH # 0.5 10^3/uL (1.5-5.0); LYMPH % 8.3 % (24.0-44.0); MONO # 0.4 10^3/uL (0.0-0.8); MONO % 5.8 % (0.0-5.0); NEUTROPHILS # 5.1 10^3/uL (1.5-8.5); NEUTROPHILS % 82.1 % (36.0-66.0); PLATELET COUNT, AUTOMATED 138 10^3/uL (150-450)
[2020-07-04 06:00] VITALS: BP 141/71
[2020-07-04 06:21] LABS: ALBUMIN 1.2 GM/DL (3.2-5.2); BILIRUBIN,TOTAL 0.2 MG/DL (0.2-1.0); CALCIUM LEVEL 7.1 MG/DL (8.8-10.2); CREATININE FOR GFR 3.05 MG/DL (0.55-1.30); GLOMERULAR FILTRATION RATE 15.8 (>39); MAGNESIUM LEVEL 2.1 MG/DL (1.8-2.4); POTASSIUM SERUM 3.5 MEQ/L (3.5-5.1); TOTAL PROTEIN 4.6 GM/DL (6.4-8.2)
[2020-07-04] MEDS: SODIUM CHLORIDE 0.9% INJ 10 ML SYR IV SCH ×2 (06:21→18:22)
[2020-07-04 07:43] LABS: APPEARANCE, BODY FLUID CLEAR (CLEAR); PERITONEAL DIALYSATE FL COLOR COLORLESS (COLORLESS); SOURCE, BODY FLUID PERITONEAL DIALYSATE
[2020-07-04] MEDS: ASPIRIN 325 MG TAB PO SCH (09:00)
[2020-07-04] MEDS: CHOLESTYRAMINE 4 GM PWD PKT PO SCH (10:32)
[2020-07-04] MEDS: LOMOTIL 2.5MG/0.025MG TABLET PO SCH ×5 (10:32→21:14)
[2020-07-04] MEDS: HEPARIN SOD (PORCINE) 5000UNITS/ML 1ML VIAL/SYRINGE SC SCH ×2 (10:33→21:18)
[2020-07-04 11:30] LABS: PHOSPHORUS LEVEL 2.1 MG/DL (2.5-4.9)
[2020-07-04] MEDS: VANICREAM MOISTURIZING SKIN CREAM 113GM TUBE TOP SCH (11:34)
[2020-07-04] MEDS ORDERED: NS 500 ML IV ONE ×2 (12:15→23:30)
[2020-07-04] MEDS ORDERED: VANCOMYCIN HCL 2,000 MG in IV FLUID PLACE HOLDER 1 EA IV ONE (12:30)
[2020-07-04] MEDS ORDERED: FERRIC CARBOXYMALTOSE INJ 750 MG in NS 250 ML IV ONE (13:00)
[2020-07-04] MEDS ORDERED: VANCOMYCIN 1000MG/20ML VIAL IP ONE (13:45)
--- NOTE | 2020-07-04 13:50 | REP ---
INDICATION: Rt Parotid Gland swelling and tenderness COMPARISON: None. TECHNIQUE: Axial noncontrast images through the facial bones to include the mandible with coronal and sagittal re-formations. FINDINGS: The right parotid gland is asymmetrically enlarged/swollen with overlying stranding and adjacent reactive lymph nodes. There is a 3 mm calculus likely obstructing the proximal portion of the parotid duct (series 202; image 5). Remainder of the examination appears normal. The osseous structures are intact. The sinuses are relatively clear. Incidental mucocele in the right maxillary sinus noted. Mandible and temporomandibular joints are symmetric and normal. Bilateral orbits are symmetric and normal. IMPRESSION: 3 mm obstructing parotid duct stone causing parotid gland inflammation. <Electronically signed by David Finn > 07/04/20 [id number]
[2020-07-04 14:00] VITALS: BP 195/74
[2020-07-04] MEDS ORDERED: VANCOMYCIN HCL 1,000 MG, VIAL MATE ADAPTER 1 EACH in D5W 250 ML IV ONE ×2 (14:00→15:00)
[2020-07-04] MEDS: cefTRIAXone SOD 1 GM in D5W MINI-BAG PLUS 50 ML IV SCH (14:31)
--- NOTE | 2020-07-04 15:02 | IPNPDOC ---
Date Seen The patient was seen on 07/04/20. Progress Note SUBJECTIVE: She was seen and examined at bedside this morning. Patient appears quite lethargic and somnolent this morning. Mucous members appear extremely dry. Lips are cracked. Patient states that she feels fine and that she is located in the [facility]. She is otherwise oriented to person only. OBJECTIVE PHYSICAL EXAMINATION: VITAL SIGNS: please see below General: NAD, comfortable HEENT: PERRLA, EOMI, sclerae clear, noticed a large 10 cm long axis and 3 cm in the short axis vertical longitudinal swelling across the temporal mandibular junction. There is overlying skin erythema and pain to palpation Neck: supple, normal ROM, no JVD Respiratory: lungs CTAB, no wheeze, no rales, mild crackles bilaterally CVS: RRR, normal S1, S2, no murmurs Abdo: soft, no masses, no hepatosplenomegaly, BS+, no rebound tenderness Extremities: 1+ LE edema MSK: no joint deformities, normal ROM Skin: b/l LE chronic venous stasis changes. Unstageable ulcers on buttocks, sacrum and left upper leg present on admission. Neuro: no focal neuro deficits, moving all 4 extremities, CN2-12 intact. Strength 5/5 in all 4 extremities. No nystagmus. Psych: calm, cooperative, AAO x 1 LABORATORY DATA, IMAGING STUDIES, MICROBIOLOGY: Please see below. DVT prophylaxis ordered?: Y 79-year-old female past medical history of ESRD on peritoneal dialysis, insulin- dependent diabetes mellitus, hypertension, brought in the ED by EMS after being called for weakness at her residence. Found to have peritonitis as well as UTI and CAP. Patient was in a state of dishevelment and poor hygiene on arrival. # Disheveled, poor hygiene, multiple wounds: Not caring well for herself. advanced wound care consult Dr Mann recommends surgery for debridement. Consulted Dr Cunningham to evaluate the multiple ulcers. Debridement deferred, will monitor progress, per . Octavio would defer until diarrhea improves. On cholestyramine. #R face swelling: suspected parotid gland inflammation. 10 x 3 cm swelling. Erythematous. Patient is febrile. Started on vancomycin. Massage to help drainage. CT face showing 3 mm stone in parotid gland. Given fevers, and ESRD/DM2, added vancomycin to ceftriaxone. ENT injection molding engineer available on 07/04/20, will call. #protein calorie malnutrition: silvering applicator joel. TPN. # Diarrhea: minimal output in rectal tube, DC today. Consulted GI, appreciate recs. GI panel negative. C diff PCR negative. Cholestyramine 4mg daily. # Peritonitis: IP gentamycin through 07/06. Ceftriaxone. Nephro on board. # ESRD: on PD. Nephro consulted. # CAP and UTI: started on Zosyn switched to ceftriaxone 06/25. UCx GBS, BCx negative. Leukocytosis resolved. Can continue for 7-10 day total course. # Rabdo: Improved with IVFs. CPK downtrended. # IDDM: levemir. ISS. Frequent accu-checks. Hypoglycemic precautions. # Left knee pain: Left knee and hip xray negative for fracture. Not complaining of pain anymore. # Suspect undiagnosed dementia with behaviors: quiet time, frequent reorientation, at risk of owning. IM Haldol as needed for severe agitation. Started seroquel 25 mg q6pm. b12/folate/hiv/ammonia. Folate low. # Low folate: replace folate # Hyponatremia: Resolved with NS. # Hypokalemia: Corrected. Monitor. # DVT proph: heparin Dispo: palliative care consult placed. Son agrees. Multiple comorbidities, with suspected progressing dementia with superimposed encephalopathy. VS, I&O, 24H, Fishbone Vital Signs/I&O Vital Signs Date Time Temp Pulse Resp B/P (MAP) Pulse Ox O2 Delivery O2 Flow Rate FiO2 07/04/20 06:00 100.0 88 16 141/71 (94) 99 Room Air I&O- Last 24 Hours up to 6 AM 07/04/20 06:00 Intake Total 07698 ml Output Total 9700 ml Balance 1630 ml Laboratory Data 24H LABS Laboratory Tests 2 07/03/20 18:19: Bedside Glucose (Misc Panel) 147H 07/03/20 23:37: Bedside Glucose (Misc Panel) 246H 07/04/20 05:25: Immature Granulocyte % (Auto) 1.1, Neutrophils (%) (Auto) 82.1H, Lymphocytes (%) (Auto) 8.3L, Monocytes (%) (Auto) 5.8H, Eosinophils (%) (Auto) 2.2, Basophils (%) (Auto) 0.5, Neutrophils # (Auto) 5.1, Lymphocytes # (Auto) 0.5L, Monocytes # (Auto) 0.4, Eosinophils # (Auto) 0.1, Basophils # (Auto) 0.0, Nucleated Red Blood Cells % (auto) 0.0 07/04/20 05:26: Anion Gap 6L, Glomerular Filtration Rate 15.8L, Calcium Level 7.1L, Phosphorus Level 2.1#L, Magnesium Level 2.1, Total Bilirubin 0.2, Aspartate Amino Transf (AST/SGOT) 32, Alanine Aminotransferase (ALT/SGPT) 27, Alkaline Phosphatase 228H, Total Protein 4.6L, Albumin 1.2L, Albumin/Globulin Ratio 0.4L 07/04/20 06:05: Bedside Glucose (Misc Panel) 172H 07/04/20 06:55: Body Fluid Source PERITONEAL DIALYSATE, Body Fluid WBC (Auto) 2, Body Fluid RBC (Auto) < 2, Peritoneal Fluid Color COLORLESS, Peritoneal Fluid Appearance CLEAR 07/04/20 12:25: Bedside Glucose (Misc Panel) 220H CBC/BMP Laboratory Tests 07/04/20 05:25 07/04/20 05:26 Microbiology Microbiology 06/26/20 Campylobacter (PCR) - Final, Complete 06/26/20 Clostridium difficile Toxin A&B PCR - Final, Complete 06/26/20 Plesiomonas shigelloides (PCR) - Final, Complete 06/26/20 Salmonella (PCR)(SHAYLEE) - Final, Complete 06/26/20 Vibrio Species (PCR) - Final, Complete 06/26/20 Vibrio Cholerae (PCR) - Final, Complete 06/26/20 Yersinia enterocolitica (PCR) - Final, Complete 06/26/20 Enteroaggregative E. coli (PCR) - Final, Complete 06/26/20 Enteropathogenic E. coli (PCR) - Final, Complete 06/26/20 Enterotoxigenic E. coli (PCR) - Final, Complete 06/26/20 E. coli Shiga-like Toxin (PCR) - Final, Complete 06/26/20 Escherichia coli 0157 (PCR) - Final, Complete 06/26/20 Enteroinvasive E. coli/Shigella PCR - Final, Complete 06/26/20 Cryptosporidium (PCR) - Final, Complete 06/26/20 Cyclospora cayetanensis (PCR) - Final, Complete 06/26/20 Entamoeba histolytica (PCR) - Final, Complete 06/26/20 Giardia lamblia (PCR) - Final, Complete 06/26/20 Adenovirus Type F 40/41 (PCR) - Final, Complete 06/26/20 Astrovirus (PCR) - Final, Complete 06/26/20 Norovirus GI/GII (PCR) - Final, Complete 06/26/20 Rotavirus A (PCR) - Final, Complete 06/26/20 Sapovirus I/II/IV/V (PCR) - Final, Complete JOY SANCHEZ MD Jul 04, 2020 15:02
[2020-07-04] MEDS ORDERED: SODIUM CHLORIDE IV SCH ×7 (18:00)
[2020-07-04] MEDS ORDERED: POTASSIUM CHLORIDE IV SCH ×7 (18:00)
[2020-07-04] MEDS ORDERED: FAT EMULSION IV 20% 500 ML IV SCH (18:00)
[2020-07-04] MEDS ORDERED: [UNRECOGNIZED DRUG - OTHER] IV SCH ×7 (18:00)
[2020-07-04] MEDS ORDERED: ACETAMINOPHEN TAB 650MG DOSE (2X325MG) PO PRN (20:45)
[2020-07-04] MEDS: QUEtiapine FUMARATE 25 MG TAB PO SCH (21:14)
[2020-07-04] MEDS: NYSTATIN 100,000 UNITS/GM TOPICAL PWD 15 GM TOP SCH (21:18)
[2020-07-04 22:00] VITALS: BP 138/78
[2020-07-04 23:15] VITALS: BP 86/40
[2020-07-04] MEDS ORDERED: ACETAMINOPHEN TAB 650MG DOSE (2X325MG) PO ONE (23:30)
[2020-07-04] MEDS ORDERED: NS 1,000 ML IV ONE (23:30)
[2020-07-05] VITALS (24 sets, daily range): BP systolic 82–143; BP diastolic 42–65
[2020-07-05] MEDS: HumaLOG INSULIN (NovoLOG) PER UNIT SC SCH ×3 (01:10→12:04)
[2020-07-05] MEDS: VANICREAM MOISTURIZING SKIN CREAM 113GM TUBE TOP SCH ×3 (01:29→23:53)
[2020-07-05] MEDS ORDERED: NS 250 ML IV ONE (01:45)
--- NOTE | 2020-07-05 02:58 | REPVR ---
PROCEDURE INFORMATION: Exam: XR Chest, 1 View Exam date and time: 07/05/20 (2:22am) Age: 79 years old Clinical indication: Sepsis TECHNIQUE: Imaging protocol: Portable CXR Views: 1 view COMPARISON: Portable CXR of 06/24/20 FINDINGS: Comparison is made with a portable CXR done on 06/24/20. All 0 Prominent breast shadows. Stable heart size. Calcifications at the aortic knob. Moderate right pleural effusion now seen. Probable associated RLL atelectasis. Cannot exclude a minimal left pleural effusion. No consolidation. A left-sided PICC line has been placed, with its tip probably at the superior margin of the SVC. No pneumothorax. Dextroscoliosis of the midthoracic spine again seen. Diffuse degenerative spine changes. IMPRESSION: Increasing right pleural effusion. Probable associated right basilar atelectasis. Cannot exclude a right basilar pneumonia. Possible minimal left pleural effusion. Follow-up is suggested. A left-sided PICC line has been placed, with its tip probably at the superior margin of the SVC. No pneumothorax. Electronically signed by: Velvet Mendoza On 07/05/2020 02:58:07 AM
[2020-07-05] MEDS ORDERED: NS 500 ML IV ONE (04:00)
[2020-07-05] MEDS: PIPERACILLIN/TAZOBACTAM SOD 2.25 GM in D5W MINI-BAG PLUS 50 ML IV SCH ×2 (04:02→10:57)
[2020-07-05 04:29] LABS: BILIRUBIN, URINE MANUAL NEGATIVE (NEGATIVE); GLUCOSE, URINE (UA) MANUAL NEGATIVE (NEGATIVE); KETONE, URINE MANUAL NEGATIVE (NEGATIVE); UROBILINOGEN, URINE MANUAL NORMAL (NORMAL)
[2020-07-05 04:40] LABS: BACTERIA, URINE SMALL AMOUNT; HYALINE CAST, URINE NONE SEEN /lpf (0-1)
[2020-07-05 04:41] LABS: AMORPHOUS SEDIMENT, URINE SMALL AMOUNT (NEGATIVE); SQUAMOUS EPITHELIAL CELL URINE SMALL AMOUNT /hpf (SMALL AMT); YEAST, URINE SMALL AMOUNT
[2020-07-05] MEDS: SODIUM CHLORIDE 0.9% INJ 10 ML SYR IV SCH ×2 (05:15→18:00)
[2020-07-05 05:17] LABS: BASO % 0.8 % (0.0-1.0); EOS # 0.2 10^3/uL (0.0-0.5); EOS % 3.1 % (0.0-3.0); HEMATOCRIT 25.4 % (36.0-47.0); HEMOGLOBIN 8.1 g/dl (12.0-15.5); LYMPH # 0.7 10^3/uL (1.5-5.0); LYMPH % 13.1 % (24.0-44.0); MEAN CORPUSCULAR HEMOGLOBIN 28.6 pg (27.0-33.0); MEAN CORPUSCULAR HGB CONC 31.9 g/dl (32.0-36.5); MEAN CORPUSCULAR VOLUME 89.8 fl (80.0-96.0); MONO # 0.3 10^3/uL (0.0-0.8); MONO % 6.7 % (0.0-5.0); NEUTROPHILS # 3.8 10^3/uL (1.5-8.5); NEUTROPHILS % 74.7 % (36.0-66.0); PLATELET COUNT, AUTOMATED 116 10^3/uL (150-450); RED BLOOD COUNT 2.83 10^6/uL (4.00-5.40); WHITE BLOOD COUNT 5.1 10^3/uL (4.0-10.0)
[2020-07-05 05:48] LABS: ALBUMIN 0.9 GM/DL (3.2-5.2); BILIRUBIN,TOTAL 0.2 MG/DL (0.2-1.0); CALCIUM LEVEL 6.7 MG/DL (8.8-10.2); CREATININE FOR GFR 2.91 MG/DL (0.55-1.30); GLOMERULAR FILTRATION RATE 16.6 (>39); MAGNESIUM LEVEL 1.7 MG/DL (1.8-2.4); POTASSIUM SERUM 3.8 MEQ/L (3.5-5.1); TOTAL PROTEIN 3.9 GM/DL (6.4-8.2)
[2020-07-05] MEDS: LOMOTIL 2.5MG/0.025MG TABLET PO SCH ×5 (07:30→23:52)
[2020-07-05] MEDS ORDERED: VANCOMYCIN HCL 1,000 MG, VIAL MATE ADAPTER 1 EACH in D5W 250 ML IV SCH (07:30)
[2020-07-05 07:40] LABS: APPEARANCE, BODY FLUID CLEAR (CLEAR); PERITONEAL DIALYSATE FL COLOR COLORLESS (COLORLESS); SOURCE, BODY FLUID PERITONEAL DIALYSATE
[2020-07-05] MEDS: ASPIRIN 325 MG TAB PO SCH ×2 (09:00→09:02)
[2020-07-05] MEDS: HEPARIN SOD (PORCINE) 5000UNITS/ML 1ML VIAL/SYRINGE SC SCH ×2 (09:01→23:53)
[2020-07-05] MEDS: NYSTATIN 100,000 UNITS/GM TOPICAL PWD 15 GM TOP SCH (09:04)
--- NOTE | 2020-07-05 13:27 | IPNPDOC ---
Date Seen The patient was seen on 07/05/20. Progress Note SUBJECTIVE: Overnight patient was febrile, hypotensive. Was given a 750 cc bolus and transfered to ICU. Patient was seen and examined at bedside this morning. She appears well. She is slightly mobile and oriented yesterday. Vitals stable. She states that she has no chest pain, no fever, no chills. She states that her R parotid swelling is less painful. OBJECTIVE PHYSICAL EXAMINATION: VITAL SIGNS: please see below General: NAD, comfortable HEENT: PERRLA, EOMI, sclerae clear, noticed a large 10 cm long axis and 3 cm in the short axis vertical longitudinal swelling across the temporal mandibular junction. There is overlying skin erythema and mildly reduced pain to palpation. Neck: supple, normal ROM, no JVD Respiratory: lungs CTAB, no wheeze, no rales CVS: RRR, normal S1, S2, no murmurs Abdo: soft, no masses, no hepatosplenomegaly, BS+, no rebound tenderness Extremities: 1+ LE edema MSK: no joint deformities, normal ROM Skin: b/l LE chronic venous stasis changes. Unstageable ulcers on buttocks, sacrum and left upper leg. Neuro: no focal neuro deficits, moving all 4 extremities, CN2-12 intact. Strength 5/5 in all 4 extremities. No nystagmus. Psych: calm, cooperative, AAO x 1 LABORATORY DATA, IMAGING STUDIES, MICROBIOLOGY: Please see below. DVT prophylaxis ordered?: Y 79-year-old female past medical history of ESRD on peritoneal dialysis, insulin- dependent diabetes mellitus, hypertension, brought in the ED by EMS after being called for weakness at her residence. Found to have peritonitis as well as UTI and CAP. Patient was in a state of dishevelment and poor hygiene on arrival. # Sacral wound/L upper posterior thigh wound: completed advanced wound care consult, Dr. Mann. Dr. Cunningham was consulted for debridement. Debridement was held off given copious diarrhea. Now improved. Nystatin powder for likely superimposed candidal infection. Continue with hydophera blue and foam dressings, change q2days. #SIRS: resolved. downgrade from ICU. BP stable. On vanc and ceftriaxone. Afebrile today. Urine and blood cx pending. Fevers 2/2 peritonitis vs pna vs sa cral pressure wound. #R parotid sialolith: 10 x 3 cm swelling. Erythematous. Patient is febrile. Sta rted on vancomycin. Massage to help drainage. CT face showing 3 mm stone in parotid gland. Given fevers, and ESRD/DM2, added vancomycin to ceftriaxone. Placed ENT consult, discussed with Dr. Saez. Rec head elevation, warm compress, lemon drops. C/w abx. Will see patient. #protein calorie malnutrition: architecture faculty member eval. TPN. # Diarrhea: minimal output in rectal tube, DC today. Consulted GI, appreciate recs. GI panel negative. C diff PCR negative. Cholestyramine 4mg daily. # Peritonitis: IP gentamycin through 07/06. Ceftriaxone. Nephro on board. # ESRD: on PD. Nephro consulted. # CAP and UTI: started on Zosyn switched to ceftriaxone 06/25. UCx GBS, BCx negative. Leukocytosis resolved. Can continue for 7-10 day total course. # Rabdo: Improved with IVFs. CPK downtrended. # IDDM: levemir. ISS. Frequent accu-checks. Hypoglycemic precautions. # Left knee pain: Left knee and hip xray negative for fracture. Not complaining of pain anymore. # Suspect undiagnosed dementia with behaviors: quiet time, frequent reorientation, at risk of ing. IM Haldol as needed for severe agitation. Started seroquel 25 mg q6pm. b12/folate/hiv/ammonia. Folate low. # Low folate: replace folate # Hyponatremia: Resolved with NS. # Hypokalemia: Corrected. Monitor. # DVT proph: heparin Dispo: Palliative care consult was placed. Discussed with JAIMEE Abarca for palliative care. Given the patient's multiple comorbidities which include ESRD, dementia, protein calorie malnutrition requiring total parenteral nutrition, patient has a poor prognosis and is an appropriate candidate for palliative t herapy, possibly hospice. VS, I&O, 24H, Fishbone Vital Signs/I&O Vital Signs Date Time Temp Pulse Resp B/P (MAP) Pulse Ox O2 Delivery O2 Flow Rate FiO2 07/05/20 12:30 100.7 84 19 121/58 (79) 98 Room Air I&O- Last 24 Hours up to 6 AM 07/05/20 06:00 Intake Total 60211 ml Output Total 8200 ml Balance 3650 ml Laboratory Data 24H LABS Laboratory Tests 2 07/04/20 17:59: Bedside Glucose (Misc Panel) 166H 07/04/20 23:16: Bedside Glucose (Misc Panel) 186H 07/05/20 02:05: Lactic Acid Level 1.3 07/05/20 04:15: Urine Color (SHANE) YELLOW, Urine Appearance (SHANE) TURBIDH, Urine pH (SHANE) 5.5, Urine Specific [place] (SHANE) 1.015, Urine Protein 2+H, Bedside Urine Glucose (UA) NEGATIVE, Bedside Urine Ketones (LAB) NEGATIVE, Bedside Urine Blood POSITIVEH, Bedside Urine Nitrite (LAB) NEGATIVE, Bedside Urine Bilirubin (LAB) NEGATIVE, Bedside Urine Urobilinogen (LAB) NORMAL, Bedside Urine Leukocyte Esterase (L POSITIVEH, Urine Sediment Examination UNSPUN, Urine RBC 1-3, Urine WBC TNTCH, Urine Squamous Epithelial Cells SMALL AMOUNT, Urine Amorphous Sediment SMALL AMOUNTH, Urine Bacteria SMALL AMOUNTH, Urine Hyaline Casts NONE SEEN, Urine Yeast SMALL AMOUNTH 07/05/20 05:04: Immature Granulocyte % (Auto) 1.6, Neutrophils (%) (Auto) 74.7H, Lymphocytes (%) (Auto) 13.1L, Monocytes (%) (Auto) 6.7H, Eosinophils (%) (Auto) 3.1H, Basophils (%) (Auto) 0.8, Neutrophils # (Auto) 3.8, Lymphocytes # (Auto) 0.7L, Monocytes # (Auto) 0.3, Eosinophils # (Auto) 0.2, Basophils # (Auto) 0.0, Nucleated Red Blood Cells % (auto) 0.4H, Anion Gap 6L, Glomerular Filtration Rate 16.6L, Calcium Level 6.7L, Magnesium Level 1.7L, Total Bilirubin 0.2, Aspartate Amino Transf (AST/SGOT) 44H, Alanine Aminotransferase (ALT/SGPT) 29, Alkaline Phosphatase 261H, Total Protein 3.9L, Albumin 0.9#L, Albumin/Globulin Ratio 0.3L 07/05/20 07:00: Body Fluid Source PERITONEAL DIALYSATE, Body Fluid WBC (Auto) 3, Body Fluid RBC (Auto) < 2, Peritoneal Fluid Color COLORLESS, Peritoneal Fluid Appearance CLEAR 07/05/20 11:40: Bedside Glucose (Misc Panel) 187H CBC/BMP Laboratory Tests 07/05/20 05:04 Microbiology Microbiology 07/05/20 Urine Culture, Received Pending 07/04/20 Blood Culture, Received Pending 07/04/20 Blood Culture, Received Pending 06/26/20 Campylobacter (PCR) - Final, Complete 06/26/20 Clostridium difficile Toxin A&B PCR - Final, Complete 06/26/20 Plesiomonas shigelloides (PCR) - Final, Complete 06/26/20 Salmonella (PCR)(SHAYLEE) - Final, Complete 06/26/20 Vibrio Species (PCR) - Final, Complete 06/26/20 Vibrio Cholerae (PCR) - Final, Complete 06/26/20 Yersinia enterocolitica (PCR) - Final, Complete 06/26/20 Enteroaggregative E. coli (PCR) - Final, Complete 06/26/20 Enteropathogenic E. coli (PCR) - Final, Complete 06/26/20 Enterotoxigenic E. coli (PCR) - Final, Complete 06/26/20 E. coli Shiga-like Toxin (PCR) - Final, Complete 06/26/20 Escherichia coli 0157 (PCR) - Final, Complete 06/26/20 Enteroinvasive E. coli/Shigella PCR - Final, Complete 06/26/20 Cryptosporidium (PCR) - Final, Complete 06/26/20 Cyclospora cayetanensis (PCR) - Final, Complete 06/26/20 Entamoeba histolytica (PCR) - Final, Complete 06/26/20 Giardia lamblia (PCR) - Final, Complete 06/26/20 Adenovirus Type F 40/41 (PCR) - Final, Complete 06/26/20 Astrovirus (PCR) - Final, Complete 06/26/20 Norovirus GI/GII (PCR) - Final, Complete 06/26/20 Rotavirus A (PCR) - Final, Complete 06/26/20 Sapovirus I/II/IV/V (PCR) - Final, Complete JOY SANCHEZ MD Jul 05, 2020 13:27
--- NOTE | 2020-07-05 13:45 | IPNPDOC ---
Text Note Date of Service The patient was seen on 07/05/20. NOTE 79 yo Insulin dependent diabetic, dialysis patient who pressens with acute right partoid swellling. I have reveiwed chart and CT scan There may be a small 3mm stone obstructing the duct at the proximal portion of the duct This appears to be a classic case of acute parotitis in the [facility] patient with multiple medical problems including diabetes and renal failure The initial treatment is IV ABX already started Moist heat to the side of the face, elevation of the head, hydration and lemon candy( sugarless) to stimulate salivary flow. The stone is too small and too proximal to reach surgically. It should pass but dehydration makes the saliva sludge Will follow VS,Ar, I+O VS, Ar, I+O Laboratory Tests 07/05/20 05:04 Vital Signs Date Time Temp Pulse Resp B/P (MAP) Pulse Ox O2 Delivery O2 Flow Rate FiO2 07/05/20 13:30 98.5 07/05/20 12:30 84 19 121/58 (79) 98 Room Air I&O- Last 24 Hours up to 6 AM 07/05/20 06:00 Intake Total 98291 ml Output Total 8200 ml Balance 3650 ml URIEL MAJANO MD Jul 05, 2020 13:45
--- NOTE | 2020-07-05 14:00 | CR.PDOC ---
General Date of Consultation: Jul 05, 2020 Referring Provider: JOY ADAMS MD Attending Physician: JOY ADAMS MD Consultation REASON FOR CONSULTATION/CHIEF COMPLAINT: palliative care consultation to clarify goals of care HISTORY OF PRESENT ILLNESS:79 year old female admitted to [facility] 06/23/2020 with "weakness". She was found to have UTI, she has a history of extensive sacral decubiti and is followed by Dr. Mann for this. On admission she was noted to have some dementia, and she developed some parotid swelling. SHe received antibiotics and parotid and UTI have improved. At this time she is a full code. ALLERGIES: Please see below. HOME MEDICATIONS: Please see below. PAST MEDICAL HISTORY: 1. ESRD on PD 2. HTN 3. IDDM 4. decubitus ulcers 5. PVD PAST SURGICAL HISTORY: 1. cholecystectomy 2. 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 Children: 3 Employment: as above Tobacco use: she is unable to tell me ETOH: she denies recent use Illicit drug use: no IV drug use: no Other relevant social factors: na REVIEW OF SYSTEMS: CONSTITUTIONAL: recent fevers, weakness, poor appetite HEENT: parotid tenderness CARDIOVASCULAR: denies chest pain or palpitations RESPIRATORY: wheezing GENITOURINARY: peritoneal dialysis MUSCULOSKELETAL: denies pain or swelling GASTROINTESTINAL: diarrhea, improved on lomotil, poor appetite SKIN: sacral ulcers NEUROLOGICAL: memory deficits PSYCHIATRIC: irritable ENDOCRINE: IDDM HEMATOLOGIC/LYMPHATIC: na ALLERGIC/IMMUNOLOGIC: na PHYSICAL EXAMINATION: VITAL SIGNS: Please see below. GENERAL APPEARANCE: elderly female in no acute distress, resting in bed, TPN running HEENT: refused to allow oral exam and did not want me to touch her neck RESPIRATORY: audible wheezing without using stethescope CARDIOVASCULAR: S1 S2 RRR ABDOMEN: hypoactive BS, no rebound or guarding EXTREMITIES: refused to let me raise sheets NEUROLOGICAL: clcearly cognitive deficits, unable to state where she is refused to say month or season PSYCHIATRIC: irritable LABORATORY DATA: Please see below. ASSESSMENT/PLAN: 1. ESRD on peritoneal dialysis 2. Failure to thrive Domenico did not want me to examine her and stopped answering questions after I spoke with her for about 5 minutes. I called her son Duncan who is POA and stated he is the person who is essentially making the healthcare decisions. He stated "I was told she was going to in the hospital and I am waiting for a doctor to call me to make her a DNR/DNI." He stated that she indicated previously she wuld want a Gtube for feeding but would not want chest compressions or to be on a ventilator. He stated she would accept IVF, blood transfusions and would want to continue dialysis. He stated the focus of her care at this point should be on her comfort, but he was quite emphatic he does not think she should go on hospice at this point and stated he would not want her to go to a SNF nor to the hospice residence. He appears to expect she will be kept here in the hospital until she expires unless she gets well enough for him to bring her home. He has experienced her getting ill and rebounding in the past. I spoke with Dr. Adams about my telephone conversation kelly Song and he will call him to discuss her MOLST and making her DNR/DNI. In my clinical opinion, she does appear to be hospice appropriate and as her condition deteriorates, her family may decide that makes more sense to put into place. Vital Signs/I&O Vital Signs Date Time Temp Pulse Resp B/P (MAP) Pulse Ox O2 Delivery O2 Flow Rate FiO2 07/05/20 13:30 98.5 07/05/20 12:30 84 19 121/58 (79) 98 Room Air I&O- Last 24 Hours up to 6 AM 07/05/20 06:00 Intake Total 22785 ml Output Total 8200 ml Balance 3650 ml Laboratory Data Labs 24H Laboratory Tests 2 07/04/20 17:59: Bedside Glucose (Misc Panel) 166H 07/04/20 23:16: Bedside Glucose (Misc Panel) 186H 07/05/20 02:05: Lactic Acid Level 1.3 07/05/20 04:15: Urine Color (SHANE) YELLOW, Urine Appearance (SHANE) TURBIDH, Urine pH (SHANE) 5.5, Ur ine Specific [place] (SHANE) 1.015, Urine Protein 2+H, Bedside Urine Glucose (UA) NEGATIVE, Bedside Urine Ketones (LAB) NEGATIVE, Bedside Urine Blood POSITIVEH, Bedside Urine Nitrite (LAB) NEGATIVE, Bedside Urine Bilirubin (LAB) NEGATIVE, Bedside Urine Urobilinogen (LAB) NORMAL, Bedside Urine Leukocyte Esterase (L POSITIVEH, Urine Sediment Examination UNSPUN, Urine RBC 1-3, Urine WBC TNTCH, Urine Squamous Epithelial Cells SMALL AMOUNT, Urine Amorphous Sediment SMALL AMOUNTH, Urine Bacteria SMALL AMOUNTH, Urine Hyaline Casts NONE SEEN, Urine Yeast SMALL AMOUNTH 07/05/20 05:04: Immature Granulocyte % (Auto) 1.6, Neutrophils (%) (Auto) 74.7H, Lymphocytes (%) (Auto) 13.1L, Monocytes (%) (Auto) 6.7H, Eosinophils (%) (Auto) 3.1H, Basophils (%) (Auto) 0.8, Neutrophils # (Auto) 3.8, Lymphocytes # (Auto) 0.7L, Monocytes # (Auto) 0.3, Eosinophils # (Auto) 0.2, Basophils # (Auto) 0.0, Nucleated Red Blood Cells % (auto) 0.4H, Anion Gap 6L, Glomerular Filtration Rate 16.6L, Calc ium Level 6.7L, Magnesium Level 1.7L, Total Bilirubin 0.2, Aspartate Amino Transf (AST/SGOT) 44H, Alanine Aminotransferase (ALT/SGPT) 29, Alkaline Phosphatase 261H, Total Protein 3.9L, Albumin 0.9#L, Albumin/Globulin Ratio 0.3L 07/05/20 07:00: Body Fluid Source PERITONEAL DIALYSATE, Body Fluid WBC (Auto) 3, Body Fluid RBC (Auto) < 2, Peritoneal Fluid Color COLORLESS, Peritoneal Fluid Appearance CLEAR 07/05/20 11:40: Bedside Glucose (Misc Panel) 187H CBC/BMP Laboratory Tests 07/05/20 05:04 Microbiology Microbiology 07/05/20 Urine Culture, Received Pending 07/04/20 Blood Culture, Received Pending 07/04/20 Blood Culture, Received Pending 06/26/20 Campylobacter (PCR) - Final, Complete 06/26/20 Clostridium difficile Toxin A&B PCR - Final, Complete 06/26/20 Plesiomonas shigelloides (PCR) - Final, Complete 06/26/20 Salmonella (PCR)(SHAYLEE) - Final, Complete 06/26/20 Vibrio Species (PCR) - Final, Complete 06/26/20 Vibrio Cholerae (PCR) - Final, Complete 06/26/20 Yersinia enterocolitica (PCR) - Final, Complete 06/26/20 Enteroaggregative E. coli (PCR) - Final, Complete 06/26/20 Enteropathogenic E. coli (PCR) - Final, Complete 06/26/20 Enterotoxigenic E. coli (PCR) - Final, Complete 06/26/20 E. coli Shiga-like Toxin (PCR) - Final, Complete 06/26/20 Escherichia coli 0157 (PCR) - Final, Complete 06/26/20 Enteroinvasive E. coli/Shigella PCR - Final, Complete 06/26/20 Cryptosporidium (PCR) - Final, Complete 06/26/20 Cyclospora cayetanensis (PCR) - Final, Complete 06/26/20 Entamoeba histolytica (PCR) - Final, Complete 06/26/20 Giardia lamblia (PCR) - Final, Complete 06/26/20 Adenovirus Type F 40/41 (PCR) - Final, Complete 06/26/20 Astrovirus (PCR) - Final, Complete 06/26/20 Norovirus GI/GII (PCR) - Final, Complete 06/26/20 Rotavirus A (PCR) - Final, Complete 06/26/20 Sapovirus I/II/IV/V (PCR) - Final, Complete Allergies Coded Allergies: atorvastatin (Verified Allergy, Intermediate, swelling, 03/25/20) levofloxacin (Verified Allergy, Intermediate, swelling, 03/25/20) magnesium oxide (Verified Allergy, Intermediate, swelling, 03/25/20) povidone-iodine (Verified Allergy, Intermediate, rash, 03/25/20) acetaminophen (Verified Adverse Reaction, Intermediate, increased heartrate, 03/25/20) Home Medications Scheduled Aspirin (Aspirin) 325 Mg Tablet, 325 MG PO DAILY, (Reported) Bumetanide (Bumetanide) 2 Mg Tablet, 2 MG PO BID, (Reported) Calcium Carbonate/Vitamin D3 (Calcium 600+D Softgel) 1 Each Capsule, 1 CAP PO DAILY, (Reported) Ergocalciferol (Vitamin D2) (Vitamin D2) 50,000 Units Cap, 50,000 UNITS PO QWEE K, (Reported) Ferrous Sulfate (Ferrous Sulfate) 325 Mg Tablet, 325 MG PO DAILY, (Reported) Gentamicin Sulfate (Gentamicin Sulfate) 15 Gm Oint...g., 1 DOSE TOP ASDIRECTED, (Reported) 0.1% - APPLY TO PERITENEAL DIALYSIS CATHETER Insulin Glargine,Hum.rec.anlog (Lantus Solostar) 100 Unit/1 Ml Insuln.pen, 10 UNITS SC DAILY, (Reported) Lecithin (Lecithin) 518 Mg Capsule, 518 MG PO DAILY, (Reported) Magnesium (Magnesium) 250 Mg Tablet, 500 MG PO DAILY, (Reported) Potassium Chloride (Potassium Chloride) 10 Meq Tab.er.prt, 20 MEQ PO DAILY, (Reported) Red Yeast Rice (Red Yeast Rice) 600 Mg Capsule, 1,200 MG PO DAILY, (Reported) Saccharomyces Boulardii (Florastor) 250 Mg Capsule, 250 MG PO BID, (Reported) Miscellaneous Medications [Patient Comment] , (Reported) MED LIST OBTAINED FROM DIALYSIS, UNABLE TO VERIFY WITH PATIENT Dana MURCIA [employer] Jul 05, 2020 14:00
[2020-07-05] MEDS ORDERED: IPRATROPIUM 0.5MG/ALBUTEROL 2.5MG INH SOL UD 3ML (DUONEB) NEB PRN (14:15)
[2020-07-05] MEDS ORDERED: HYOSCYAMINE SULFATE 0.125 MG SUBL TABLET PO PRN (15:15)
[2020-07-05] MEDS ORDERED: BISACODYL 10 MG SUPP PR PRN (15:15)
[2020-07-05] MEDS ORDERED: ONDANSETRON 4MG/2ML VIAL IV PRN (15:15)
[2020-07-05] MEDS ORDERED: LORazepam 2 MG/ML VIAL IV PRN (15:15)
[2020-07-05] MEDS ORDERED: SCOPOLAMINE 1MG TRANSDERMAL PATCH TOP PRN (15:15)
[2020-07-05] MEDS ORDERED: ATROPINE SULFATE 1% OP SOLN 2 ML BTL SL PRN (15:15)
[2020-07-05] MEDS ORDERED: MORPHINE 2 MG/ML 1ML VIAL (J2270) IV PRN (15:15)
[2020-07-05] MEDS ORDERED: FAT EMULSION IV 20% 500 ML IV SCH (18:00)
[2020-07-05] MEDS ORDERED: HumaLOG INSULIN (NovoLOG) PER UNIT SC SCH (18:00)
[2020-07-05] MEDS ORDERED: POTASSIUM CHLORIDE IV SCH ×9 (18:00)
[2020-07-05] MEDS ORDERED: [UNRECOGNIZED DRUG - OTHER] IV SCH ×9 (18:00)
[2020-07-05] MEDS ORDERED: SODIUM CHLORIDE IV SCH ×9 (18:00)
--- NOTE | 2020-07-05 20:33 | IPN ---
PROGRESS NOTE DATE: 07/05/2020 SUBJECTIVE: The patient was seen and examined at the bedside today morning in the ICU. Last 24 hour events were noted. The patient was afebrile and she was hypotensive last night. She was given IV normal saline boluses. Vancomycin was added yesterday. She also got the chest x-ray done which showed right pleural effusion and possibility of right basilar pneumonia. The patient continues to be dependent on TPN. She is hardly eating anything. She is still encephalopathic and obtunded. She follows very few commands. Otherwise the patient is not requiring any pressors at this time, and she is tolerating peritoneal dialysis. OBJECTIVE: VITAL SIGNS: Temperature is 100.7 degrees Fahrenheit, blood pressure 121/58, pulse is 84, respiratory rate of 19, saturating 98% on room air. Intake and Output the urine output is recorded as 200 mL. Ultrafiltration with peritoneal dialysis so far is 100 mL. Weight on the bed scale is 90.2 kg. PHYSICAL EXAMINATION: GENERAL APPEARANCE: The patient is awake, alert, oriented x2, laying in bed, answers few questions. . HEAD AND NECK: Pupils are equally round and reactive to light. Mucous membranes are very dry. She has right parotid gland swelling with tenderness. Neck is supple. There is no jugular venous distention. CARDIOVASCULAR: S1, S2, regular rate. EXTREMITIES: 2+ edema of the bilateral lower extremities. RESPIRATORY: Decreased breath sounds at the bases with coarse crepitations on the right base. ABDOMEN: Soft, positive bowel sounds, nontender. She has a left sided peritoneal dialysis catheter with no tenderness or drainage from the exit site. MUSCULOSKELETAL: 2+ edema. She is waiting waffle boots in both lower extremities. 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 She follows few commands and moves upper extremities. LABORATORY REVIEW: CBC showed a WBC of 5.1, hemoglobin 8.1, platelets are 116. Urinalysis done today morning showed it was turbid with positive leukocyte esterase and too numerous to count WBCs. BMP done today morning showed sodium 136, potassium 3.8, chloride 106, bicarbonate 24, BUN 36, creatinine is 2.9, calcium 6.7, magnesium 1.7, albumin is 0.9. MICROBIOLOGY: Repeat blood cultures sent last night are pending and urine culture is pending. IMAGING: A chest x-ray done today morning showed increasing right pleural effusion with associated right basilar atelectasis. CURRENT INPATIENT MEDICATIONS: The patient's medications were all reviewed by myself. She continues to be dependent on TPN. She was given normal saline boluses yesterday. She was started on IV Zosyn. She was also given IV Vancomycin yesterday. No other significant change in the medications today as compared with yesterday. ASSESSMENT AND PLAN: 1. End-stage renal disease - The patient is dependent on peritoneal dialysis. Continue current peritoneal dialysis regimen. Because of infection and fevers and volume depletion, clinically yesterday her peritoneal dialysis regimen was decreased to all exchanges of 1.5% and all 2 liters. Continue current regimen for now. 2. Decrease oral intake and protein calorie malnutrition - The patient is dependent on TPN. Again, a special formulation TPN was ordered by myself today morning according to her electrolytes requirement. 3. Fevers and possible right lower lobe pneumonia - The patient is currently on Vancomycin and Zosyn which adequately covers her infection. 4. Right sided parotitis - The patient has a stone in the parotid gland. Current antibiotic regimen adequately covers the parotid gland infection as well and to prevent dehydration, she was given IV fluids yesterday. 5. Recent peritonitis associated with peritoneal dialysis catheter the patient's latest white cell count is 3. Peritonitis is successfully treated. She is finishing a course of IV antibiotics. 6. Anemia and end-stage renal disease - hemoglobin level is 8.1 which is most likely dilutional because of IV fluid hydration yesterday. Continue current dose of Aranesp. She is also iron deficient. I could not give her IV iron because of the possibility of active infection in the lung. 7. Disposition the patient overall has poor prognosis because of prolonged hospitalization, recurrent infection including peritonitis, pneumonia and urinary tract infection, sacral decubitus ulcer, decreased oral intake, inability to take anything p.o., dependence on parenteral nutrition and she is bed ridden ever since she was admitted to the hospital. Medical Team is discussing the goals of care with her family members. Total critical care time spent in the management of this patient today morning in the ICU excluding all the procedures was 45 minutes. MTDD
[2020-07-05] MEDS ORDERED: NYSTATIN 100,000 UNITS/GM TOPICAL PWD 15 GM TOP SCH (21:00)
[2020-07-05] MEDS: QUEtiapine FUMARATE 25 MG TAB PO SCH (23:53)
[2020-07-06 06:00] VITALS: BP 134/73
[2020-07-06] MEDS: SODIUM CHLORIDE 0.9% INJ 10 ML SYR IV SCH ×2 (06:02→17:45)
[2020-07-06] MEDS: VANICREAM MOISTURIZING SKIN CREAM 113GM TUBE TOP SCH ×2 (09:00→20:45)
[2020-07-06] MEDS: LOMOTIL 2.5MG/0.025MG TABLET PO SCH ×4 (09:26→20:45)
[2020-07-06] MEDS: HEPARIN SOD (PORCINE) 5000UNITS/ML 1ML VIAL/SYRINGE SC SCH ×2 (09:30→20:50)
--- NOTE | 2020-07-06 11:08 | IPNPDOC ---
Text Note Date of Service The patient was seen on 07/06/20. NOTE Follow up Parotitis. Reviewing chart, appears patient has significant insurmountable medical issues and is being considered for hospice care. I would do nothing more for her Parotitis than IV fluids and antibiotics. Surgical options of course not needed now, but are off the table Please contact me if there is any update on her status. VS,Fishbone, I+O VS, Fishbone, I+O Vital Signs Date Time Temp Pulse Resp B/P (MAP) Pulse Ox O2 Delivery O2 Flow Rate FiO2 07/06/20 06:00 97.0 94 20 134/73 (93) 96 07/05/20 14:37 Room Air I&O- Last 24 Hours up to 6 AM 07/06/20 05:59 Intake Total 7280 ml Output Total 6100 ml Balance 1180 ml URIEL MAJANO MD Jul 06, 2020 11:08
[2020-07-06] MEDS: SODIUM CHLORIDE 0.9% INJ 10 ML SYR IV PRN (17:45)
[2020-07-06] MEDS: QUEtiapine FUMARATE 25 MG TAB PO SCH (20:45)
[2020-07-07] MEDS: SODIUM CHLORIDE 0.9% INJ 10 ML SYR IV SCH (05:49)
[2020-07-07 06:00] VITALS: BP 136/71
[2020-07-07 07:40] LABS: BASO # 0.1 10^3/uL (0.0-0.2); BASO % 0.8 % (0.0-1.0); EOS # 0.1 10^3/uL (0.0-0.5); EOS % 2.2 % (0.0-3.0); HEMATOCRIT 28.9 % (36.0-47.0); HEMOGLOBIN 9.5 g/dl (12.0-15.5); LYMPH # 0.6 10^3/uL (1.5-5.0); MEAN CORPUSCULAR HEMOGLOBIN 28.7 pg (27.0-33.0); MEAN CORPUSCULAR HGB CONC 32.9 g/dl (32.0-36.5); MEAN CORPUSCULAR VOLUME 87.3 fl (80.0-96.0); MONO # 0.3 10^3/uL (0.0-0.8); MONO % 5.3 % (0.0-5.0); NEUTROPHILS # 5.2 10^3/uL (1.5-8.5); NEUTROPHILS % 80.5 % (36.0-66.0); PLATELET COUNT, AUTOMATED 146 10^3/uL (150-450); RED BLOOD COUNT 3.31 10^6/uL (4.00-5.40); WHITE BLOOD COUNT 6.4 10^3/uL (4.0-10.0)
[2020-07-07 08:06] LABS: ALBUMIN 1.1 GM/DL (3.2-5.2); BILIRUBIN,TOTAL 0.4 MG/DL (0.2-1.0); CALCIUM LEVEL 7.2 MG/DL (8.8-10.2); CREATININE FOR GFR 3.98 MG/DL (0.55-1.30); GLOMERULAR FILTRATION RATE 11.6 (>39); MAGNESIUM LEVEL 1.9 MG/DL (1.8-2.4); TOTAL PROTEIN 4.5 GM/DL (6.4-8.2)
[2020-07-07] MEDS: LOMOTIL 2.5MG/0.025MG TABLET PO SCH ×4 (10:03→20:32)
[2020-07-07] MEDS: VANICREAM MOISTURIZING SKIN CREAM 113GM TUBE TOP SCH ×2 (10:04→20:33)
[2020-07-07] MEDS: HEPARIN SOD (PORCINE) 5000UNITS/ML 1ML VIAL/SYRINGE SC SCH ×2 (10:04→20:33)
--- NOTE | 2020-07-07 14:15 | IPN ---
PROGRESS NOTE DATE: 07/02/2020 05:15:00 pm SUBJECTIVE: Ms. Baca is seen this morning on her bedside. She is quite confused and somewhat agitated. She is still refusing to eat. Will continue with peritoneal dialysis, which has been functioning well. PHYSICAL EXAMINATION: VITALS: Temperature 97.6 degrees Fahrenheit, heart rate 82 per minute, respiratory rate 20 per minute, blood pressure 116/42 mmHg, and oxygen saturation 98% on room air. HEAD: Atraumatic. NECK: Supple and without JVD or thyroid enlargement. HEART: Heart sounds are regular. LUNGS: Clear to auscultation. ABDOMEN: soft and nontender. Bowel sounds are normal. EXTREMITIES: Without any cyanosis or clubbing. Her peritoneal dialysis catheter is intact, without any signs of infection. NEUROLOGIC: She is confused and somewhat agitated, but is moving all her limbs. SKIN: A sacral decubitus ulcer, which is covered with dressing. LABORATORY DATA: Today's labs show WBC 6.0, hemoglobin 9.1, hematocrit 29.2, platelets 95,000. Sodium 138, potassium 3.4, CO2 26, BUN 27, creatinine 3.35. Glucose 174, calcium 7.3. Phosphorus 1.3 and magnesium 1.7. Albumin only 1.1. PROBLEMS: 1. End-stage renal disease: Patient remains on peritoneal dialysis and she is very well dialyzed. We will continue with current prescription. 2. Peritonitis: Her peritonitis has cleared and she remains on Rocephin and intraperitoneal gentamicin. Will finish her antibiotics in another day or so. 3. Diarrhea: She continues to have liquid stool and still has a rectal tube in place. 4. Protein calorie malnutrition: She is refusing to eat and remains on TPN. We wrote her TPN orders. 5. Hypokalemia: This is related to poor oral intake and refusing medications. Will increase potassium content in the TPN and recheck her electrolytes tomorrow. 6. Hypophosphatemia: This is also nutritional and will add some potassium phosphate in her TPN today. 7. Anemia: Her anemia is stable and she is receiving Aranesp once a week.
[2020-07-07] MEDS: QUEtiapine FUMARATE 25 MG TAB PO SCH (20:32)
[2020-07-08 04:33] VITALS: BP 92/49
[2020-07-08] MEDS: LORazepam 1 MG TAB PO PRN (06:14)
[2020-07-08] MEDS: LOMOTIL 2.5MG/0.025MG TABLET PO SCH ×6 (07:30→21:00)
[2020-07-08] MEDS: VANICREAM MOISTURIZING SKIN CREAM 113GM TUBE TOP SCH ×2 (10:15→22:02)
[2020-07-08] MEDS: HEPARIN SOD (PORCINE) 5000UNITS/ML 1ML VIAL/SYRINGE SC SCH ×2 (10:16→22:04)
--- NOTE | 2020-07-08 12:07 | IPN ---
NEPHROLOGY PROGRESS NOTE DATE: 07/04/2020 05:15:00 pm SUBJECTIVE: The patient was seen and examined at the bedside today morning. She is still very obtunded and confused, not eating much, refusing to eat most of the medications. She is still dependent on total parenteral nutrition. I was told by the nursing staff that the patient had a fever spike with a T-max of 100 degrees Fahrenheit and she has swelling on the right side of her jaw. REVIEW OF SYSTEMS: The patient is unable to provide any review of systems at this time. However she does report tenderness on the right side of her face. OBJECTIVE: VITAL SIGNS: Temperature is 97.9 degrees Fahrenheit, T-max is 100 degrees Fahrenheit, blood pressure is 195/74, pulse is 86, respiratory rate of 18, saturating 99% on room air. Intake and Output there is no urine output recorded. Peritoneal dialysis output so far is 100 mL. Weight on the bed scale is not available. PHYSICAL EXAMINATION: GENERAL APPEARANCE: The patient is awake, alert, oriented x2, laying in bed. HEAD AND NECK: Pupils are equally round and reactive to light. Mucous membranes are very dry. Her tongue is dry. Her palate is also dry. She has swelling and edema of the right parotid gland. Neck is supple. There is no jugular venous distention. CARDIOVASCULAR: S1, S2, regular rate, 1+ edema of the bilateral lower extremities. EXTREMITIES: No edema of the bilateral lower extremities. RESPIRATORY: Chest is clear to auscultation bilaterally. Bilaterally currently no rales or rhonchi. ABDOMEN: Soft, positive bowel sounds, nontender, no organomegaly. MUSCULOSKELETAL: No clubbing, no cyanosis. She has 1+ edema of the lower extremities. DIETITIAN: The patient is oriented x2. She does not follow commands and she is very obtunded and sleepy. deficits. Power is 5/5 in all extremities. LABORATORY STUDIES: CBC showed a WBC of 6.3, hemoglobin is 10, platelets are 138. BMP showed sodium 136, potassium 3.5, chloride 104, bicarbonate 26, BUN 33, creatinine is 3.05, calcium 7.1, phosphorous is 2.1, magnesium 2.1. Albumin is 1.2. IMAGING: Maxillofacial CT scan was done today which showed a 3 mm obstructing stone in the parotid duct on the right side causing parotid gland inflammation. CURRENT INPATIENT MEDICATIONS: The patient continues to be on IV Ceftriaxone. She continues to be on TPN. She was also given normal saline 500 mL IV bolus. I have given her a dose of IV Vancomycin, a total of 2 grams. She is refusing the Cholestyramine so I am going to stop it at this time. ASSESSMENT AND PLAN: 1. End-stage renal disease - The patient is dependent on peritoneal dialysis. Because of dehydration, I have changed her peritoneal dialysis regimen to 5 manual exchanges, all 2 liters, all 1.5%. 2. Right parotid duct stone - The patient is already on IV Ceftriaxone which adequately covers the gram negatives. I have added IV Vancomycin to cover for gram positive infection as well. She was given IV fluid hydration and she will get gentle massage of the right parotid gland, and the patient will be seen by ENT tomorrow morning. 3. Acute peritonitis associated with peritoneal dialysis catheter it has responded well to the IV antibiotics. The patient was growing three organisms including proteus, Klebsiella and strep Agalactiae group B. Continue current dose of Ceftriaxone. 4. Anemia in end-stage renal disease and iron deficiency - The patient is getting Aranesp once a week. I wanted to give her IV iron but because of acute inflammation, I have held off on administration of IV iron. 5. Protein calorie malnutrition - The patient is still dependent on TPN. She is hardly eating anything. edited: 07/13/2020 [id number] tkf DAMARIS
--- NOTE | 2020-07-08 12:14 | IPN ---
PROGRESS NOTE DATE: 07/03/2020 05:15:00 pm SUBJECTIVE: Patient was seen and examined at the bedside today morning. She is still very confused and obtunded. She continues to be on TPN. She is not taking anything p.o. Her nurse was actually trying to give her the medications with applesauce and she was not even able to take the pills with the applesauce. She continues to be on I.V. antibiotics. Peritoneal fluid cell count is significantly better. She still has some electrolyte abnormalities despite being on TPN. Neurologically, she has not made much progress so far. She is unable to provide any review of systems and she was not very cooperative during the exam either. OBJECTIVE: VITAL SIGNS: Temperature 98.2 degrees Fahrenheit, blood pressure 103/47, pulse 81, respiratory rate 18, saturating 97% on room air. INTAKE AND OUTPUT: Peritoneal dialysis output so far is 300 mL. Weight in the bed scale is not available. PHYSICAL EXAMINATION: GENERAL: Patient is oriented x1, lying in bed, not very cooperative during exam. HEAD/NECK: Pupils equally round and reactive to light. Mucous membranes are moist. Neck is supple. No significant JVD. CARDIOVASCULAR: S1, S2, regular rate. 1+ edema of the bilateral lower extremities all the way up the thighs. RESPIRATORY: Chest is clear to auscultation bilaterally. Bilateral equal air entry. No rales or rhonchi. ABDOMEN: Soft, nontender. Left lower quadrant PD catheter cuff is out. GENITOURINARY: She has a rectal tube and some liquid stools in the bags were seen. MUSCULOSKELETAL: No clubbing or cyanosis. 1+ edema of the lower extremities. 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 She is jittery and non-cooperative during exam. LABORATORY REVIEW: CBC showed WBC 5.8, hemoglobin 8.4, platelets 110,000. Peritoneal fluid cell count yesterday morning was 10. BMP today showed sodium 138, potassium 3.4, chloride 107, bicarb 24, BUN 31, creatinine 3.1, calcium 7. Phosphorus 1.5, magnesium 2.2. Iron level 18, TIBC 19.6, ferritin 718. Albumin 1.1 only. CURRENT INPATIENT MEDICATIONS: Patient's medications were all reviewed by myself. She continues to be on I.V. Ceftriaxone. Intraperitoneal gentamicin has been stopped. I have also stopped her oral calcium tablet and I have stopped her K-PHOS tablet. ASSESSMENT AND PLAN: 1. Acute peritonitis: Patient had poly-microbial peritonitis with PD catheter. It was growing Proteus, Klebsiella and Strep agalactiae Group B; they are augustine sensitive to Ceftriaxone. She is getting Ceftriaxone at this time. Continue current antibiotics. Continue daily peritoneal fluid cell count and cultures. 2. Urinary tract infection: Patient had UTI with Strep agalactiae, it is sensitive to Ceftriaxone, which is covering the peritonitis as well. 3. Protein calorie malnutrition: Patient is not taking much orally. She is getting TPN. New TPN orders were placed today. 4. Anemia secondary to iron deficiency and end-stage renal disease: I am going to give her a dose of I.V. Injectafer. She continues to be on subcutaneous Aranesp as well. 5. Diabetes mellitus type 2 insulin dependent: Patient is getting Dextrose with the PD fluid, so we have added insulin in the TPN regimen and she is getting insulin sliding scale as well. 6. Hypokalemia: Patient is getting potassium in the TPN. 7. Hypophosphatemia: I have stopped the oral phosphorus and increased the amount of phosphorus in the TPN. DISPOSITION: Patient overall has poor prognosis despite successful treatment of peritonitis and UTI. Patient is very confused and obtunded. She is not eating anything, she is TPN dependent. Hospitalist team is discussing the goals of care with the family members about possibly getting palliative care on board. edited: 07/13/2020 [id number] tkf MTDD
[2020-07-08] MEDS: QUEtiapine FUMARATE 25 MG TAB PO SCH (21:00)
[2020-07-09] MEDS: LOMOTIL 2.5MG/0.025MG TABLET PO SCH ×5 (07:30→22:07)
[2020-07-09] MEDS: HEPARIN SOD (PORCINE) 5000UNITS/ML 1ML VIAL/SYRINGE SC SCH ×2 (08:22→22:08)
[2020-07-09] MEDS: VANICREAM MOISTURIZING SKIN CREAM 113GM TUBE TOP SCH ×2 (08:22→22:11)
[2020-07-09] MEDS: QUEtiapine FUMARATE 25 MG TAB PO SCH (22:07)
[2020-07-10] MEDS: LOMOTIL 2.5MG/0.025MG TABLET PO SCH ×4 (09:35→21:25)
[2020-07-10] MEDS: MORPHINE 10MG/0.5ML ORAL CONCENTRATE SOLUTION U/D SL PRN ×3 (10:09→21:25)
[2020-07-10] MEDS: HEPARIN SOD (PORCINE) 5000UNITS/ML 1ML VIAL/SYRINGE SC SCH (10:09)
[2020-07-10] MEDS: VANICREAM MOISTURIZING SKIN CREAM 113GM TUBE TOP SCH ×2 (10:10→21:27)
[2020-07-10] MEDS: LORazepam 1 MG TAB PO PRN ×2 (16:53→21:25)
[2020-07-10] MEDS: QUEtiapine FUMARATE 25 MG TAB PO SCH (21:25)
[2020-07-10] MEDS ORDERED: SALIVA SUBSTITUTE(MOUTHKOTE) BTL MT PRN (23:00)
[2020-07-11] MEDS: MORPHINE 10MG/0.5ML ORAL CONCENTRATE SOLUTION U/D SL PRN ×3 (00:19→22:28)
[2020-07-11] MEDS: LORazepam 1 MG TAB PO PRN ×2 (00:19→23:01)
[2020-07-11] MEDS: LOMOTIL 2.5MG/0.025MG TABLET PO SCH ×4 (09:01→21:00)
[2020-07-11] MEDS: VANICREAM MOISTURIZING SKIN CREAM 113GM TUBE TOP SCH ×2 (09:01→22:30)
--- NOTE | 2020-07-11 11:39 | IPNPDOC ---
Text Note Date of Service The patient was seen on 07/11/20. NOTE Subjective: Patient is confused and unable to answer questions appropriately. She's been refusing to take her medications. No overnight events. Objective: Very confused still, but comfortable appearing. She is calm and cooperative at times Not in any acute distress and comfortable. Right parotid gland swelling Regular heart rate Lungs clear to auscultation Rectal tube in place Assessment and plan: 79-year-old female past medical history of ESRD on peritoneal dialysis, insulin- dependent diabetes mellitus, hypertension, brought in the ED by EMS after being called for weakness at her residence. Found to have peritonitis as well as UTI a nd CAP. Patient was in a state of dishevelment and poor hygiene on arrival. Patient is very ill with a poor prognosis. Discussion was had with son who is her healthcare proxy to pursue comfort measures only. Awaiting bed at [facility]. VS,Fishbone, I+O VS, Fishbone, I+O Vital Signs Date Time Temp Pulse Resp B/P (MAP) Pulse Ox O2 Delivery O2 Flow Rate FiO2 07/08/20 04:33 97.1 98 20 92/49 (63) 95 Room Air I&O- Last 24 Hours up to 6 AM 07/11/20 06:00 Intake Total 0 ml Output Total 400 ml Balance -400 ml KARL COLLIER MD Jul 11, 2020 11:39
[2020-07-11] MEDS: QUEtiapine FUMARATE 25 MG TAB PO SCH (21:00)
[2020-07-12] MEDS: LORazepam 1 MG TAB PO PRN (06:12)
[2020-07-12] MEDS: MORPHINE 10MG/0.5ML ORAL CONCENTRATE SOLUTION U/D SL PRN (06:13)
[2020-07-12] MEDS: LOMOTIL 2.5MG/0.025MG TABLET PO SCH ×4 (07:30→21:00)
[2020-07-12] MEDS: VANICREAM MOISTURIZING SKIN CREAM 113GM TUBE TOP SCH ×2 (09:01→22:03)
[2020-07-12] MEDS: QUEtiapine FUMARATE 25 MG TAB PO SCH (21:00)
[2020-07-13] MEDS: LOMOTIL 2.5MG/0.025MG TABLET PO SCH ×4 (07:30→20:23)
[2020-07-13] MEDS: VANICREAM MOISTURIZING SKIN CREAM 113GM TUBE TOP SCH ×2 (08:54→20:31)
[2020-07-13] MEDS: QUEtiapine FUMARATE 25 MG TAB PO SCH (20:23)
[2020-07-13] MEDS: MORPHINE 10MG/0.5ML ORAL CONCENTRATE SOLUTION U/D SL PRN (20:32)
[2020-07-14] MEDS: MORPHINE 10MG/0.5ML ORAL CONCENTRATE SOLUTION U/D SL PRN (04:09)
[2020-07-14] MEDS: LORazepam 1 MG TAB PO PRN (04:16)
[2020-07-14] MEDS: LOMOTIL 2.5MG/0.025MG TABLET PO SCH (07:17)
[2020-07-14] MEDS: VANICREAM MOISTURIZING SKIN CREAM 113GM TUBE TOP SCH (08:55)
--- NOTE | 2020-07-14 11:54 | IPNPDOC ---
Date Seen The patient was seen on 07/14/20. Progress Note NOTE I was called to the patient's room for examination, after I was informed that the patient's has at 9:37 am. Upon upon examination, no spontaneous body movements were seen and there was no response to vocal or tactile stimulation. No audible heart sounds were auscultated. No carotid pulses were felt. The entirety of the precordium was auscultated for breath sounds which were absent. Corneal reflex was absent. Extremities were cold. Time of 9:37 am on 07/14/20 Cause of : cardiac arrhythmia secondary to hyperkalemia as a consequence of end stage renal disease. Patient was under comfort measures orders at the time of . I spoke to the patient's son, Justin West, and offered my condolences. He did not have further questions. Body was released to the morgue. VS, I&O, 24H, Fishbone Vital Signs/I&O Vital Signs Date Time Temp Pulse Resp B/P (MAP) Pulse Ox O2 Delivery O2 Flow Rate FiO2 07/11/20 22:58 18 95 Room Air 07/08/20 04:33 97.1 98 92/49 (63) I&O- Last 24 Hours up to 6 AM 07/14/20 06:00 Intake Total 0 ml Output Total 0 ml Balance 0 ml Laboratory Data Microbiology Microbiology 07/05/20 Urine Culture - Final, Complete Yeast Like Organism 07/04/20 Blood Culture - Final, Complete NO GROWTH AFTER 5 DAYS 07/04/20 Blood Culture - Final, Complete NO GROWTH AFTER 5 DAYS JOY SANCHEZ MD Jul 14, 2020 11:54
--- NOTE | 2020-08-16 00:18 | DS.PDOC ---
Discharge Summary General Date of Admission Jun 23, 2020 at 17:15 Date of Discharge 07/14/20 Discharge Summary PROCEDURES PERFORMED DURING STAY: [None]. ADMITTING DIAGNOSES: Peritonitis End-stage renal disease, on peritoneal dialysis Community acquire pneumonia Urinary tract infection Rhabdomyolysis Insulin dependent diabetes Hyponatremia Pressure ulcers Hypokalemia DISCHARGE DIAGNOSES: Peritonitis End-stage renal disease, on peritoneal dialysis Community acquire pneumonia Urinary tract infection Rhabdomyolysis Insulin dependent diabetes Hyponatremia Hypokalemia Sacral and L posterio thigh pressure ulcers/wounds SIRS Protein calorie malnutrition Dementia R parotid sialolith Diarrhea COMPLICATIONS/CHIEF COMPLAINT: Peritonitis,Rhabdomyolysis,Uti. HISTORY OF PRESENT ILLNESS: 79-year-old female past medical history of ESRD on peritoneal dialysis, insulin-dependent diabetes mellitus, hypertension, brought in the ED by EMS after being called for weakness at her residence where one of her house mates noticed she was weak and confused. Patient tells me she does not have any abdominal pain but feels weak overall. She denies any other problems but Im unsure if she just doesnt want to talk at this time and wants to sleep. She told me shes not in any pain and her legs are not more swollen than nor mal. In the ED patient was confused but directable and answering basic questions and initially wanting to leave. She was found to have personal items and it probably was consulted. She was also found to have a UTI and pneumonia and was given one dose of cefepime. Patient was initially hypertensive but responded well to bolus of fluid. HOSPITAL COURSE: # Sacral wound/L upper posterior thigh wound: completed advanced wound care consult, Dr. Mann. Dr. Cunningham was consulted for debridement. Debridement was held off given copious diarrhea. Continue with hydophera blue and foam dressings, change q2days. #SIRS: On vanc and ceftriaxone. Afebrile today. Urine and blood cx pending. Fevers 2/2 peritonitis vs pna vs sacral pressure wound. #R parotid sialolith: CT face showing 3 mm stone in parotid gland. Given fevers, and ESRD/DM2, added vancomycin to ceftriaxone. Placed ENT consult, discussed with Dr. Saez. Rec head elevation, warm compress, lemon drops. C/w abx. #protein calorie malnutrition: lactation coordinator eval. TPN. # Diarrhea: required rectal tube. Consulted GI, appreciate recs. GI panel negative. C diff PCR negative. Cholestyramine 4mg daily. # Peritonitis: IP gentamycin through 07/06. Ceftriaxone. Nephro on board. # ESRD: on PD. Nephro consulted. # CAP and UTI: started on Zosyn switched to ceftriaxone 06/25. UCx GBS, BCx negative. Leukocytosis resolved. # Rabdo: Improved with IVFs. CPK downtrended. # IDDM: levemir. ISS. Frequent accu-checks. Hypoglycemic precautions. # Left knee pain: Left knee and hip xray negative for fracture. Not complaining of pain anymore. # Suspect undiagnosed dementia with behaviors: quiet time, frequent reorientation, at risk of sundowning. IM Haldol as needed for severe agitation. Started seroquel 25 mg q6pm. b12/folate/hiv/ammonia. Folate low. # Low folate: replace folate # Hyponatremia: Resolved with NS. # Hypokalemia: Corrected. Monitor. Due to patient's numeroud acute and chronic medical conditions and poor prognosis, patient's son Mr. Justin West decided for GEOMAGNETIST status. Patient on 07/14/20 at 0937 due to cardiac arrhythmia secondary to hyperkalemia as a consequence of end stage renal disease. DISCHARGE MEDICATIONS: Please see below. ALLERGIES: Please see below. PHYSICAL EXAMINATION ON DISCHARGE: Upon upon examination, no spontaneous body movements were seen and there was no response to vocal or tactile stimulation. No audible heart sounds were auscultated. No carotid pulses were felt. The entirety of the precordium was auscultated for breath sounds which were absent. Corneal reflex was absent. Extremities were cold. LABORATORY DATA: Please see below. IMAGING: CXR (07/05/20): IMPRESSION: Increasing right pleural effusion. Probable associated right basilar atelectasis. Cannot exclude a right basilar pneumonia. Possible minimal left pleural effusion. Follow-up is suggested. A left-sided PICC line has been placed, with its tip probably at the superior margin of the SVC. No pneumothorax. CT maxilofacial wo contrast (07/04/20): 3 mm obstructing parotid duct stone causing parotid gland inflammation CT head wo contrast (06/23/20): 1. No intracranial hemorrhage or evidence of large acute infarct. 2. Atherosclerosis, patchy small vessel ischemic disease, and cerebral volume loss. CXR (06/23/20): IMPRESSION: Small right pleural effusion and possible subtle right-sided early infiltrate PROGNOSIS: ACTIVITY: [As tolerated]. DISPOSITION: 20 . DISCHARGE CONDITION: [Stable]. TIME SPENT ON DISCHARGE: 25 minutes Discharge Medications Scheduled Aspirin (Aspirin) 325 Mg Tablet, 325 MG PO DAILY, (Reported) Bumetanide (Bumetanide) 2 Mg Tablet, 2 MG PO BID, (Reported) Calcium Carbonate/Vitamin D3 (Calcium 600+D Softgel) 1 Each Capsule, 1 CAP PO DAILY, (Reported) Ergocalciferol (Vitamin D2) (Vitamin D2) 50,000 Units Cap, 50,000 UNITS PO QWEEK, (Reported) Ferrous Sulfate (Ferrous Sulfate) 325 Mg Tablet, 325 MG PO DAILY, (Reported) Gentamicin Sulfate (Gentamicin Sulfate) 15 Gm Oint...g., 1 DOSE TOP ASDIRECTED, (Reported) 0.1% - APPLY TO PERITENEAL DIALYSIS CATHETER Insulin Glargine,Hum.rec.anlog (Lantus Solostar) 100 Unit/1 Ml Insuln.pen, 10 UNITS SC DAILY, (Reported) Lecithin (Lecithin) 518 Mg Capsule, 518 MG PO DAILY, (Reported) Magnesium (Magnesium) 250 Mg Tablet, 500 MG PO DAILY, (Reported) Potassium Chloride (Potassium Chloride) 10 Meq Tab.er.prt, 20 MEQ PO DAILY, (Reported) Red Yeast Rice (Red Yeast Rice) 600 Mg Capsule, 1,200 MG PO DAILY, (Reported) Saccharomyces Boulardii (Florastor) 250 Mg Capsule, 250 MG PO BID, (Reported) Miscellaneous Medications [Patient Comment] , (Reported) MED LIST OBTAINED FROM DIALYSIS, UNABLE TO VERIFY WITH PATIENT Allergies Coded Allergies: atorvastatin (Verified Allergy, Intermediate, swelling, 03/25/20) levofloxacin (Verified Allergy, Intermediate, swelling, 03/25/20) magnesium oxide (Verified Allergy, Intermediate, swelling, 03/25/20) povidone-iodine (Verified Allergy, Intermediate, rash, 03/25/20) acetaminophen (Verified Adverse Reaction, Intermediate, increased heartrate, 03/25/20) JOY SANCHEZ MD Aug 16, 2020 00:18
== END 2020-07-14 09:37 | disposition expired | DRG 867 ==
LOC: M ED 12:00 → EDBD 12:00 → M ED INP 17:15 → ENRESERV 18:00 → M PCU 19:05 → M MSPAV 06-30 15:28 → M ICU 07-05 02:51 → M MSPAV 07-05 14:32
PROVIDERS: ADMIT Family Medicine; ATTEND Family Medicine
PROC: 02HV33Z Insertion of Infusion Device into Superior Vena Cava, Percutaneous Approach (ICD-10-PCS; principal; 2020-06-28 13:30)
DX: T80.29XA Infection following other infusion, transfusion and therapeutic injection, initial encounter (principal); N18.6 End stage renal disease; J18.9 Pneumonia, unspecified organism; G93.41 Metabolic encephalopathy; I50.33 Acute on chronic diastolic (congestive) heart failure; E43 Unspecified severe protein-calorie malnutrition; K65.9 Peritonitis, unspecified; N39.0 Urinary tract infection, site not specified; M62.82 Rhabdomyolysis; E87.1 Hypo-osmolality and hyponatremia; N25.81 Secondary hyperparathyroidism of renal origin; L89.310 Pressure ulcer of right buttock, unstageable; L89.150 Pressure ulcer of sacral region, unstageable; E11.22 Type 2 diabetes mellitus with diabetic chronic kidney disease; L89.320 Pressure ulcer of left buttock, unstageable; L89.890 Pressure ulcer of other site, unstageable; K11.21 Acute sialoadenitis; R19.7 Diarrhea, unspecified; E87.6 Hypokalemia; D63.1 Anemia in chronic kidney disease; R62.7 Adult failure to thrive; B37.2 Candidiasis of skin and nail; E83.39 Other disorders of phosphorus metabolism; D50.9 Iron deficiency anemia, unspecified; E87.5 Hyperkalemia; F03.90 Unspecified dementia, unspecified severity, without behavioral disturbance, psychotic disturbance, mood disturbance, and anxiety; I11.0 Hypertensive heart disease with heart failure; E11.9 Type 2 diabetes mellitus without complications; Z79.899 Other long term (current) drug therapy; Z79.82 Long term (current) use of aspirin; Z88.8 Allergy status to other drugs, medicaments and biological substances; Z88.6 Allergy status to analgesic agent; E83.42 Hypomagnesemia